=== PATIENT | female | born 1960 | race Caucasian/White ===

== ENCOUNTER 2018-03-28 00:05 | Outpatient (CLI) | payer MEDICAID, SELFPAY ==
[2018-03-28 10:58] LABS: TSH 0.11 uIU/mL (0.358-3.74)
== END 2018-03-28 00:25 ==
PROVIDERS: PCP Nurse Practitioner; Visit Provider Nurse Practitioner
DX: E03.9 Hypothyroidism, unspecified (principal)
CPT/HCPCS: 84443

== ENCOUNTER 2018-03-30 00:30 | Outpatient (CLI) | payer MEDICAID, SELFPAY ==
--- NOTE | 2018-03-30 16:32 | DI.MAMMO_ITS ---
SYMPTOM/DIAGNOSIS: SCREENING, Z12.31 MAMMOGRAMS: Mammograms were interpreted according to the usual protocol including computer analysis with CAD system, tomosynthesis and C view imaging. Comparison is made with prior examinations. Breast density, category B. No masses or microcalcifications are seen. There is nothing to suggest malignancy. IMPRESSION: Negative mammogram. Routine screening is recommended. Category 1B. MQSA ASSESSMENT OF FINDINGS: Negative. Category 1. Patient will receive a letter notifying them of these results. BI-RADS category B. There are scattered areas of fibroglandular density.
== END 2018-03-30 00:50 ==
PROVIDERS: PCP Nurse Practitioner; Visit Provider Nurse Practitioner
DX: Z12.31 Encounter for screening mammogram for malignant neoplasm of breast (principal)
CPT/HCPCS: 77063; 77067

== ENCOUNTER 2018-05-23 10:30 | Outpatient (CLI) | payer MEDICAID, SELFPAY ==
[2018-05-23 11:29] LABS: TSH 0.47 uIU/mL (0.358-3.74)
== END 2018-05-23 10:50 ==
PROVIDERS: PCP Nurse Practitioner; Visit Provider Nurse Practitioner
DX: E03.9 Hypothyroidism, unspecified (principal)
CPT/HCPCS: 36415; 84443

== ENCOUNTER 2018-07-23 09:11 | Emergency (ER) | payer OTHER, SELFPAY ==
[2018-07-23 09:15] VITALS: PULSE 66; RESP 18; TEMP 36.6; O2SAT 98
[2018-07-23 10:09] VITALS: BP 112/60; PULSE 52; RESP 18; TEMP 36.5; O2SAT 97
[2018-07-23] MEDS: Ibuprofen 600 MG TAB PO (10:15)
[2018-07-23] MEDS: Acetaminophen 325 MG TAB 650 MG PO (10:16)
--- NOTE | 2018-07-23 11:21 | W.ED.GENAD ---
Discharge Plan Disposition Patient Disposition: HOME Condition: Stable Discharge Details Chief Complaint: HeadInjury Clinical Impression: Head injury, acute, with loss of consciousness Primary Care Provider: Shelia Harrison ED Provider: Pepe Saavedra Home Meds and New Rx's Prescriptions: Continued meloxicam 15 MG tablet 15 mg PO DAILY RF: 0 levothyroxine [Levoxyl] 175 MCG tablet 175 mcg PO DAILY RF: 0 Discontinued benzonatate 200 MG capsule 200 mg PO Q8H PRN (Reason: Cough) Qty: 20 RF: 0 Discharge Instructions Instructions: Head Injury (ED), Staple Care (ED) Additional Instructions: Return to the emergency department for any new or significant worsening of symptoms such as severe headache, nausea vomiting, or any neurological symptoms or confusion. Otherwise you may continue to take [id number] pain medication as needed for headache or discomfort. Keep wound clean and dry and return 7 days for removal of your kasey. Watch for signs of infection of your cut and return immediately if this occurs. Referrals: Shelia Harrison [Primary Care Provider] - (As needed for reassessment) Discharge Data Discharge Date/Time-TO BE ENTERED AT DEPARTURE: 07/23/18 12:44 Medical Decision Making Patient presenting the emergency department for chief complaint of head injury. Patient states approximately 10-20 minutes prior to arrival she slipped and fell on the ice and her went out to assist her. Patient states feeling dazed afterwards but there is a questionable loss of consciousness versus no loss of consciousness. Physical exam is positive for a head laceration but otherwise no signs of skull fracture, no altered mental status, no vomiting. Using [place] head CT rule patient does not require CT imaging at this time but patient given acetaminophen and Motrin and observed in the emergency department. small 2cm head laceration repaired with 2 kasey. Pt observed in the emergency. Patient had no symptoms and statement of discomfort after acetaminophen and Motrin. Spouse was encouraged to watch patient and return for any concerns otherwise patient was discharged in stable and improving condition. After discussion of diagnosis and plan of care patient has no further needs, questions, or concerns and states clear understanding to return to the emergency department for any worsening symptoms. HPI General Mode of arrival: ambulatory. Date/Time Provider Initiated Documentation: 07/23/18 09:12. Limitations to Documentation: no limitations. Information obtained by: patient, family and RN notes reviewed. History of Present Illness 57 year old F presents to the emergency department with the chief complaint of Head injury, described as mild, with intensity rated at 5. Quality is described as aching, and is localized to the head. Patient reports no radiation. Patient started experiencing this minute(s) (10) and it has been constant. No relieving factors improve symptom(s), No exacerbating factors reported . Patient notes no other symptoms.. Patient did receive the following treatments prior to arrival, none Related Data Home Medications Medication Instructions Recorded Confirmed meloxicam 15 mg PO DAILY tab-cap 03/20/16 11/10/16 levothyroxine [Levoxyl] 175 mcg PO DAILY 11/04/16 11/10/16 Allergies Allergy/AdvReac Type Severity Reaction Status Date / Time No Known Allergies Allergy Unverified 09/16/16 10:20 General Stated Complaint: HeadInjury REBECA: 2 Review of Systems Constitutional Denies body ache(s), Denies chills, Denies fever(s) and Reports headache(s) Eyes Denies change in vision ENT Denies dizziness and Reports headache(s) Cardiovascular Denies chest pain and Denies syncope Gastrointestinal Reports nausea and Reports vomiting Neurologic Reports as per HPI, Denies dizziness, Denies syncope, Reports headache(s) and Denies sensory deficit PFSH Surgical History Cholecystectomy Colonoscopy - MAC (11/10/16) Dilation and curettage Hernia Repair, Incisional Ligation of fallopian tube Social History Smoking/Tobacco Use Status: Former Tobacco Use Exam Const General: cooperative, healthy appearing, no acute distress and well groomed Orientation: alert, awake and oriented x3 HENMT Head: no palpable skull fracture, no Clements's sign, no hematomas, laceration (2cm), no occipital foramen tenderness, no palpable skull fracture and no raccoon eyes Ears: hearing grossly normal bilaterally and TM's normal bilaterally Mouth: oral mucosae normal and moist mucous membranes Throat: posterior oropharynx normal Eyes Visual Meredith: normal visual meredith by confrontation Alignment and Position: alignment normal Periorbital: periorbital findings normal Eyelids: eyelids normal Sclera: sclerae normal Cornea: corneas normal Pupils: PERRL EOM: EOM intact bilaterally Neck Neck: normal visual inspection, full ROM, no lymphadenopathy and no meningeal signs Resp Effort & Inspection: normal respiratory effort and able to speak in complete sentences Auscultation: clear to auscultation bilaterally Cardio Rate: regular rate Rhythm: regular rhythm Heart Sounds: S1 normal and S2 normal Neuro General: alert, awake, oriented x3, gait normal, tone normal, moves all extremities, CN's II-XI intact bilaterally and not confused Cognition: normal cognition Speech: speech normal Motor: muscle tone normal throughout, strength 5/5 throughout, no pronator drift, no movement abnormalities noted and no fasciculations Sensory Exam: no sensory deficits noted Coordination: [id number] test normal, Romberg test normal, Does not sway with eyes open, rapid alternating movement UE normal and rapid alternating movement LE normal Course Vital Signs Temperature 36.6 C 07/23/18 09:15 Pulse 66 07/23/18 09:15 Respiratory Rate 18 07/23/18 09:15 Pulse Oximetry 98 07/23/18 09:15 Temperature 36.5 C 07/23/18 10:09 Temperature Source Temporal Artery Scan 07/23/18 10:09 Pulse 52 L 07/23/18 10:09 Respiratory Rate 18 07/23/18 10:09 Respiratory Effort 07/23/18 09:35 Respiratory Depth Normal 07/23/18 09:35 Respiratory Pattern Normal 07/23/18 09:35 Blood Pressure 112/60 07/23/18 10:09 Blood Pressure Position Sitting 07/23/18 09:15 Pulse Oximetry 97 07/23/18 10:09 Oxygen Delivery Method Room Air 07/23/18 10:09 Oxygen Flow Rate 0 07/23/18 10:09 Pain Level 3 07/23/18 10:09 Procedures Laceration Laceration 1: Site: scalp Side (If applicable): right Size (cm): 2 Description: linear Depth: simple, single layer Local Anesthetic: Lidocaine 1% and with Epi Amount of anesthesia used (mL): 4 Pre-repair: wound explored, irrigated extensively and deep structures intact Skin layer closed with: other (kasey) Number of sutures: 2
[2018-07-23 11:23] VITALS: BP 136/81; PULSE 61; RESP 16; TEMP 36.5; O2SAT 98
--- NOTE | 2018-07-23 11:24 | ED.GENADUL_ITS ---
Discharge Plan Disposition Patient Disposition: HOME Condition: Stable Discharge Details Chief Complaint: HeadInjury Clinical Impression: Head injury, acute, with loss of consciousness Primary Care Provider: Shelia Harrison ED Provider: Pepe Saavedra Home Meds and New Rx's Prescriptions: Continued meloxicam 15 MG tablet 15 mg PO DAILY RF: 0 levothyroxine [Levoxyl] 175 MCG tablet 175 mcg PO DAILY RF: 0 Discontinued benzonatate 200 MG capsule 200 mg PO Q8H PRN (Reason: Cough) Qty: 20 RF: 0 Discharge Instructions Instructions: Head Injury (ED), Staple Care (ED) Additional Instructions: Return to the emergency department for any new or significant worsening of symptoms such as severe headache, nausea vomiting, or any neurological symptoms or confusion. Otherwise you may continue to take [id number]-[id number] pain medication as needed for headache or discomfort. Keep wound clean and dry and return 7 days for removal of your kasey. Watch for signs of infection of your cut and return immediately if this occurs. Referrals: Shelia Harrison [Primary Care Provider] - (As needed for reassessment) Discharge Data Discharge Date/Time-TO BE ENTERED AT DEPARTURE: 07/23/18 12:44 Medical Decision Making Patient presenting the emergency department for chief complaint of head injury. Patient states approximately 10-20 minutes prior to arrival she slipped and fell on the ice and her went out to assist her. Patient states feeling dazed afterwards but there is a questionable loss of consciousness versus no loss of consciousness. Physical exam is positive for a head laceration but otherwise no signs of skull fracture, no altered mental status, no vomiting. Using [place] head CT rule patient does not require CT imaging at this time but patient given acetaminophen and Motrin and observed in the emergency department. small 2cm head laceration repaired with 2 kasey. Pt observed in the emergency. Patient had no symptoms and statement of discomfort after acetaminophen and Motrin. Spouse was encouraged to watch patient and return for any concerns otherwise patient was discharged in stable and improving condition. After discussion of diagnosis and plan of care patient has no further needs, questions, or concerns and states clear understanding to return to the emergency department for any worsening symptoms. HPI General Mode of arrival: ambulatory . Date/Time Provider Initiated Documentation: 07/23/18 09:12 . Limitations to Documentation: no limitations . Information obtained by: patient, family and RN notes reviewed . History of Present Illness 57 year old F presents to the emergency department with the chief complaint of Head injury, described as mild, with intensity rated at 5. Quality is described as aching, and is localized to the head. Patient reports no radiation. Patient started experiencing this minute(s) (10) and it has been constant. No relieving factors improve symptom(s), No exacerbating factors reported . Patient notes no other symptoms.. Patient did receive the following treatments prior to arrival, none Related Data Home Medications Medication Instructions Recorded Confirmed meloxicam 15 mg PO DAILY tab-cap 03/20/16 11/10/16 levothyroxine [Levoxyl] 175 mcg PO DAILY 11/04/16 11/10/16 Allergies Allergy/AdvReac Type Severity Reaction Status Date / Time No Known Allergies Allergy Unverified 09/16/16 10:20 General Stated Complaint: HeadInjury REBECA: 2 Review of Systems Constitutional Denies body ache(s), Denies chills, Denies fever(s) and Reports headache(s) Eyes Denies change in vision ENT Denies dizziness and Reports headache(s) Cardiovascular Denies chest pain and Denies syncope Gastrointestinal Reports nausea and Reports vomiting Neurologic Reports as per HPI, Denies dizziness, Denies syncope, Reports headache(s) and Denies sensory deficit PFSH Surgical History Cholecystectomy Colonoscopy - MAC (11/10/16) Dilation and curettage Hernia Repair, Incisional Ligation of fallopian tube Social History Smoking/Tobacco Use Status: Former Tobacco Use Exam Const General: cooperative, healthy appearing, no acute distress and well groomed Orientation: alert, awake and oriented x3 HENMT Head: no palpable skull fracture, no Clements's sign, no hematomas, laceration (2cm), no occipital foramen tenderness, no palpable skull fracture and no raccoon eyes Ears: hearing grossly normal bilaterally and TM's normal bilaterally Mouth: oral mucosae normal and moist mucous membranes Throat: posterior oropharynx normal Eyes Visual Meredith: normal visual meredith by confrontation Alignment and Position: alignment normal Periorbital: periorbital findings normal Eyelids: eyelids normal Sclera: sclerae normal Cornea: corneas normal Pupils: PERRL EOM: EOM intact bilaterally Neck Neck: normal visual inspection, full ROM, no lymphadenopathy and no meningeal signs Resp Effort & Inspection: normal respiratory effort and able to speak in complete sentences Auscultation: clear to auscultation bilaterally Cardio Rate: regular rate Rhythm: regular rhythm Heart Sounds: S1 normal and S2 normal Neuro General: alert, awake, oriented x3, gait normal, tone normal, moves all extremities, CN's II-XI intact bilaterally and not confused Cognition: normal cognition Speech: speech normal Motor: muscle tone normal throughout, strength 5/5 throughout, no pronator drift, no movement abnormalities noted and no fasciculations Sensory Exam: no sensory deficits noted Coordination: [id number] test normal, Romberg test normal, Does not sway with eyes open, rapid alternating movement UE normal and rapid alternating movement LE normal Course Vital Signs Temperature 36.6 C 07/23/18 09:15 Pulse 66 07/23/18 09:15 Respiratory Rate 18 07/23/18 09:15 Pulse Oximetry 98 07/23/18 09:15 Temperature 36.5 C 07/23/18 10:09 Temperature Source Temporal Artery Scan 07/23/18 10:09 Pulse 52 L 07/23/18 10:09 Respiratory Rate 18 07/23/18 10:09 Respiratory Effort 07/23/18 09:35 Respiratory Depth Normal 07/23/18 09:35 Respiratory Pattern Normal 07/23/18 09:35 Blood Pressure 112/60 07/23/18 10:09 Blood Pressure Position Sitting 07/23/18 09:15 Pulse Oximetry 97 07/23/18 10:09 Oxygen Delivery Method Room Air 07/23/18 10:09 Oxygen Flow Rate 0 07/23/18 10:09 Pain Level 3 07/23/18 10:09 Procedures Laceration Laceration 1: Site: scalp Side (If applicable): right Size (cm): 2 Description: linear Depth: simple, single layer Local Anesthetic: Lidocaine 1% and with Epi Amount of anesthesia used (mL): 4 Pre-repair: wound explored, irrigated extensively and deep structures intact Skin layer closed with: other (kasey) Number of sutures: 2
== END 2018-07-23 12:44 | disposition home or self-care (01) ==
PROVIDERS: Emergency Provider Nurse Practitioner Family; PCP Nurse Practitioner
DX: S06.0X9A Concussion with loss of consciousness of unspecified duration, initial encounter (principal); S01.81XA Laceration without foreign body of other part of head, initial encounter; W00.0XXA Fall on same level due to ice and snow, initial encounter
CPT/HCPCS: 90471

== ENCOUNTER 2018-07-30 11:46 | Emergency (ER) | payer OTHER, SELFPAY ==
[2018-07-30 12:26] VITALS: BP 135/90; PULSE 58; RESP 18; TEMP 36.7; O2SAT 98
--- NOTE | 2018-07-30 12:27 | W.ED.GENAD ---
Discharge Plan Disposition Patient Disposition: HOME Condition: Good Discharge Details Chief Complaint: SutureRem Clinical Impression: Encounter for staple removal Primary Care Provider: Shelia Harrison ED Provider: Pepe Saavedra Home Meds and New Rx's Prescriptions: No Action meloxicam 15 MG tablet 15 mg PO DAILY RF: 0 levothyroxine [Levoxyl] 175 MCG tablet 175 mcg PO DAILY RF: 0 Discharge Instructions Instructions: Staple Care (ED) Additional Instructions: Return to the emergency department for any signs of infection otherwise continue to keep wound clean and dry and return as needed for any further concerns Referrals: Shelia Harrison [Primary Care Provider] - (As needed for reassessment) Discharge Data Discharge Date/Time-TO BE ENTERED AT DEPARTURE: 07/30/18 12:34 Medical Decision Making Patient presenting the emergency department for staple removal. Patient had head injury 1 week ago and 2 kasey were placed by myself. [place] were removed today without incidence no signs of infection or complications noted. Patient states that she is continued to have minor headaches but overall symptoms are improving since her slip and fall on ice. Patient encouraged to watch for signs of infection and return immediately if these occur otherwise to return as needed for any other symptoms./concerns. After discussion of diagnosis and plan of care patient is no further needs, questions, or concerns and states clear understanding to return to the emergency department for any worsening symptoms. HPI General Mode of arrival: ambulatory. Date/Time Provider Initiated Documentation: 07/30/18 12:17. Limitations to Documentation: no limitations. Information obtained by: patient, RN notes reviewed and old records reviewed. History of Present Illness 57 year old F presents to the emergency department with the chief complaint of Staple removal, Quality is described as other (denies pain), and is localized to the head. Patient started experiencing this day(s) (7) Patient notes no other symptoms.. Related Data Home Medications Medication Instructions Recorded Confirmed meloxicam 15 mg PO DAILY tab-cap 03/20/16 11/10/16 levothyroxine [Levoxyl] 175 mcg PO DAILY 11/04/16 11/10/16 Allergies Allergy/AdvReac Type Severity Reaction Status Date / Time No Known Allergies Allergy Unverified 09/16/16 10:20 General Stated Complaint: SutureRem REBECA: 5 Review of Systems Constitutional Denies chills, Denies fever(s), Denies frequent falls and Denies headache(s) ENT Denies dizziness and Denies headache(s) Integumentary/Breasts Denies rash and Denies skin swelling Neurologic Denies confusion, Denies dizziness, Denies frequent falls and Denies headache(s) Psychiatric Denies confusion [facility] Surgical History Cholecystectomy Colonoscopy - MAC (11/10/16) Dilation and curettage Hernia Repair, Incisional Ligation of fallopian tube Social History Smoking/Tobacco Use Status: Former Tobacco Use Exam Const General: cooperative, comfortable and no acute distress Orientation: alert, awake and oriented x3 HENMT Head: laceration (Well-healing laceration to right posterior scalp) Skin Rashes: no rashes Neuro General: alert, awake, oriented x3, gait normal, tone normal and moves all extremities Course Respiratory Effort Non-Labored 07/30/18 12:25
[2018-07-30 12:29] VITALS: BP 135/90; PULSE 58; RESP 18; TEMP 36.7; O2SAT 98
--- NOTE | 2018-07-30 12:31 | ED.GENADUL_ITS ---
Discharge Plan Disposition Patient Disposition: HOME Condition: Good Discharge Details Chief Complaint: SutureRem Clinical Impression: Encounter for staple removal Primary Care Provider: Shelia Harrison ED Provider: Pepe Saavedra Home Meds and New Rx's Prescriptions: No Action meloxicam 15 MG tablet 15 mg PO DAILY RF: 0 levothyroxine [Levoxyl] 175 MCG tablet 175 mcg PO DAILY RF: 0 Discharge Instructions Instructions: Staple Care (ED) Additional Instructions: Return to the emergency department for any signs of infection otherwise continue to keep wound clean and dry and return as needed for any further concerns Referrals: Shelia Harrison [Primary Care Provider] - (As needed for reassessment) Discharge Data Discharge Date/Time-TO BE ENTERED AT DEPARTURE: 07/30/18 12:34 Medical Decision Making Patient presenting the emergency department for staple removal. Patient had head injury 1 week ago and 2 kasey were placed by myself. [place] were removed today without incidence no signs of infection or complications noted. Patient states that she is continued to have minor headaches but overall symptoms are improving since her slip and fall on ice. Patient encouraged to watch for signs of infection and return immediately if these occur otherwise to return as needed for any other symptoms./concerns. After discussion of diagnosis and plan of care patient is no further needs, questions, or concerns and states clear understanding to return to the emergency department for any worsening symptoms. HPI General Mode of arrival: ambulatory . Date/Time Provider Initiated Documentation: 07/30/18 12:17 . Limitations to Documentation: no limitations . Information obtained by: patient, RN notes reviewed and old records reviewed . History of Present Illness 57 year old F presents to the emergency department with the chief complaint of Staple removal, Quality is described as other (denies pain), and is localized to the head. Patient started experiencing this day(s) (7) Patient notes no other symptoms.. Related Data Home Medications Medication Instructions Recorded Confirmed meloxicam 15 mg PO DAILY tab-cap 03/20/16 11/10/16 levothyroxine [Levoxyl] 175 mcg PO DAILY 11/04/16 11/10/16 Allergies Allergy/AdvReac Type Severity Reaction Status Date / Time No Known Allergies Allergy Unverified 09/16/16 10:20 General Stated Complaint: SutureRem REBECA: 5 Review of Systems Constitutional Denies chills, Denies fever(s), Denies frequent falls and Denies headache(s) ENT Denies dizziness and Denies headache(s) Integumentary/Breasts Denies rash and Denies skin swelling Neurologic Denies confusion, Denies dizziness, Denies frequent falls and Denies headache(s) Psychiatric Denies confusion [facility] Surgical History Cholecystectomy Colonoscopy - MAC (11/10/16) Dilation and curettage Hernia Repair, Incisional Ligation of fallopian tube Social History Smoking/Tobacco Use Status: Former Tobacco Use Exam Const General: cooperative, comfortable and no acute distress Orientation: alert, awake and oriented x3 HENMT Head: laceration (Well-healing laceration to right posterior scalp) Skin Rashes: no rashes Neuro General: alert, awake, oriented x3, gait normal, tone normal and moves all extremities Course Respiratory Effort Non-Labored 07/30/18 12:25
== END 2018-07-30 12:34 | disposition home or self-care (01) ==
PROVIDERS: Emergency Provider Nurse Practitioner Family; PCP Nurse Practitioner
DX: S01.81XD Laceration without foreign body of other part of head, subsequent encounter (principal); W00.9XXD Unspecified fall due to ice and snow, subsequent encounter; Z48.02 Encounter for removal of sutures

== ENCOUNTER 2019-02-07 13:57 | Outpatient (CLI) | payer OTHER, SELFPAY ==
[2019-02-07 15:13] LABS: ALT 27 U/L (12-78); AST 17 U/L (15-37); Albumin 3.8 g/dL (3.4-5.0); Alkaline Phosphatase 83 U/L (46-116); Anion Gap 11.1 mmol/L (3-11); BUN 13 mg/dL (7-18); Bilirubin, Total 0.3 mg/dL (0.2-1.0); CO2 23.9 mmol/L (21.0-32.0); CREATININE 0.68 mg/dL (0.55-1.02); Calcium 8.9 mg/dL (8.5-10.1); Calculated LDL 77 mg/dL; Chloride 105 mmol/L (98-107); Cholesterol 152 mg/dL (50-200); Glucose 88 mg/dL (70-100); HDL Cholesterol 44 mg/dL (40-60); Potassium 4.1 mmol/L (3.5-5.1); Sodium 140 mmol/L (136-145); TSH (W/Ref FT4) 0.44 uIU/mL (0.36-3.74); Triglyceride 158 mg/dL (30-150)
[2019-02-08 10:11] LABS: Hepatitis C Ab w Rflx HCV PCR Negative (NEGAT)
[2019-02-08 10:33] LABS: HIV-1/2 Ag & Ab Screen Negative (NEGAT)
== END 2019-02-07 14:17 ==
PROVIDERS: PCP Nurse Practitioner Adult Health; Visit Provider Nurse Practitioner Adult Health
DX: E05.90 Thyrotoxicosis, unspecified without thyrotoxic crisis or storm (principal); E66.9 Obesity, unspecified; Z11.4 Encounter for screening for human immunodeficiency virus [HIV]; Z11.59 Encounter for screening for other viral diseases; Z51.81 Encounter for therapeutic drug level monitoring; Z13.220 Encounter for screening for lipoid disorders; E03.9 Hypothyroidism, unspecified; K57.30 Diverticulosis of large intestine without perforation or abscess without bleeding
CPT/HCPCS: 36415; 80053; 80061; 83721; 86803; 87389; 84443

== ENCOUNTER 2019-04-07 01:03 | Outpatient (CLI) | payer OTHER, SELFPAY ==
--- NOTE | 2019-04-07 13:25 | DI.MAMMO_ITS ---
EXAM: MAMMO SCREENING CLINICAL HISTORY: screening Z12.39. TECHNIQUE: Mammograms were interpreted according to the usual protocol including computer analysis w Travefy system, tomosynthesis and C-view imaging. FINDINGS: The breasts are of moderate density with fairly symmetrical distribution of fibroglandular tissue. No dominant mass or clumped microcalcification is identified in either breast. Current examination is c ompared with previous examinations including March 2018 and there has been no gross interval change in appearance in comparison with previous studies. IMPRESSION: No specific evidence of malignancy at this time. Routine screening examinations are suggested at year ly intervals due to the family history of breast carcinoma. Category 1. Breast density category B. BI-RADS Cat 1 - Negative. Breast Density - Category B - Scattered areas of fibroglandular density.
== END 2019-04-07 01:23 ==
PROVIDERS: PCP Nurse Practitioner Adult Health; Visit Provider Nurse Practitioner Adult Health
DX: Z12.31 Encounter for screening mammogram for malignant neoplasm of breast (principal); Z80.3 Family history of malignant neoplasm of breast
CPT/HCPCS: 77063; 77067

== ENCOUNTER 2019-07-28 18:20 | Outpatient (CLI) | payer OTHER, SELFPAY ==
[2019-07-28 19:18] LABS: HCT 39.4 % (36.0-46.0); HGB 13.2 g/dL (12.0-15.5); Mean Corp. HGB Concentration 33.5 g/dL (32.0-36.0); Mean Corpuscular Hemoglobin 30.5 pg (27.0-33.0); Mean Platelet Volume 11.3 fL (8.0-11.0); Platelet Count 186 x1000/uL (130-400); RBC 4.33 m/cumm (4.00-5.20); RBC Distribution Width 12.4 % (11.7-14.6); White Blood Cell Count 5.05 k/cumm (4.4-10.8)
[2019-07-28 19:36] LABS: C-Reactive Protein 0.81 mg/dL (0.0-0.3)
[2019-07-28 20:10] LABS: ESR 22 mm/hr (0-30)
== END 2019-07-28 18:40 ==
PROVIDERS: PCP Nurse Practitioner Adult Health; Visit Provider Nurse Practitioner Adult Health
DX: R53.83 Other fatigue (principal); M25.50 Pain in unspecified joint; M54.2 Cervicalgia
CPT/HCPCS: 36415; 85027; 85652; 86140; 86431

== ENCOUNTER 2020-01-03 01:08 | Outpatient (CLI) | payer OTHER, SELFPAY ==
--- NOTE | 2020-01-03 07:00 | DI.US_ITS ---
EXAM: US ABDOMEN CLINICAL HISTORY: Upper abdominal pain and bloating, R10.12, R19.8 TECHNIQUE: Ultrasound abdomen performed using standard protocol. COMPARISON: No exams were available for comparison FINDINGS: LIVER: Normal size and echogenicity. No focal liver lesions are seen. GALLBLADDER: Status post cholecystectomy. KIDNEYS: Kidneys are symmetric in size. No evidence of renal calculi. No evidence of hydronephrosis. No renal mass or cyst identified. BILIARY SYSTEM: No intrahepatic or extrahepatic biliary ductal dilation. Common bile duct measures 6 to 8 millimeters. PANCREAS: Normal where visualized. Tail obscured by bowel gas. SPLEEN: Not enlarged. ABDOMINAL AORTA AND IVC: Visualized portions normal caliber. ASCITES: None seen. IMPRESSION: Status post cholecystectomy. No acute abnormality. DATA REPOSITORY:
== END 2020-01-03 01:28 ==
PROVIDERS: PCP Nurse Practitioner Adult Health; Visit Provider Nurse Practitioner
DX: R10.12 Left upper quadrant pain (principal); Z90.49 Acquired absence of other specified parts of digestive tract
CPT/HCPCS: 76700

== ENCOUNTER 2020-03-03 12:59 | Outpatient (CLI) | payer OTHER, SELFPAY ==
[2020-03-03 16:29] LABS: ALT 26 U/L (14-59); AST 14 U/L (15-37); Alkaline Phosphatase 75 U/L (46-116); Anion Gap 8.4 mmol/L (3-11); BUN 13 mg/dL (7-18); Bilirubin, Total 0.8 mg/dL (0.2-1.0); CO2 23.6 mmol/L (21.0-32.0); CREATININE 0.77 mg/dL (0.55-1.02); Calcium 8.9 mg/dL (8.5-10.1); Calculated LDL 106 mg/dL (<100); Chloride 107 mmol/L (98-107); Cholesterol 179 mg/dL (<200); Glucose 94 mg/dL (74-106); HDL Cholesterol 49 mg/dL (40-60); Potassium 4.2 mmol/L (3.5-5.1); Sodium 139 mmol/L (136-145); TSH (W/Ref FT4) 3.76 uIU/mL (0.36-3.74); Total Protein 7.1 g/dL (6.4-8.2); Triglyceride 124 mg/dL (<150)
[2020-03-03 16:46] LABS: FREE T4 1.14 ng/dL (0.76-1.46)
== END 2020-03-03 13:19 ==
PROVIDERS: PCP Nurse Practitioner Adult Health; Visit Provider Nurse Practitioner Adult Health
DX: E03.9 Hypothyroidism, unspecified (principal); R53.83 Other fatigue; E66.9 Obesity, unspecified; Z13.1 Encounter for screening for diabetes mellitus; Z51.81 Encounter for therapeutic drug level monitoring; M25.50 Pain in unspecified joint
CPT/HCPCS: 80053; 80061; 84439; 84443

== ENCOUNTER 2020-04-24 01:40 | Outpatient (CLI) | payer OTHER, SELFPAY ==
--- NOTE | 2020-04-24 14:00 | NS.NUTBLAN_ITS ---
Kandy was referred for Medical Nutrition Therapy for obesity. 5'4 261 lbs, BMI 45. Kandy reports she weighed <200 lbs about 10 years ago. She reports no health concerns, recently had total knee replacement. Goal weight loss of 50 lbs in next 6 months. Estimated Needs for weight loss : [id number] kcal, 70-80 g protein Educated Kandy on how to follow lower carb meal plan with emphasis on nonstarchy vegetables, lean protein and complex carbs. Also encouraged her to eat at least 3 times daily. Provided meal plan and assessments. Encouraged Kandy to walk 45 min 4-5 times weekly for routine exercise. Kandy was engaged in education and voiced comprehension. Did not want to make follow up appt at this time. Plan: 1. follow lower carb meal plan, 2. exercise 1 hour 4-5 times weekly, 3. follow up monthly with copywriter.
== END 2020-04-24 02:00 ==
PROVIDERS: PCP Nurse Practitioner Adult Health; Visit Provider Dietitian, Registered
DX: E66.9 Obesity, unspecified (principal); Z71.3 Dietary counseling and surveillance
CPT/HCPCS: 97802

== ENCOUNTER 2020-05-25 02:34 | Outpatient (CLI) | payer OTHER, SELFPAY ==
--- NOTE | 2020-05-25 08:15 | DI.MAMMO_ITS ---
EXAM: MAMMO SCREENING CLINICAL HISTORY: screening, Z12.39, FAMILY H/O BREAST CA TECHNIQUE: Mammograms were interpreted according to the usual protocol including computer analysis w The [employer] CAD system, tomosynthesis and C-view imaging. COMPARISON: FINDINGS: The breasts are of moderate density with fairly symmetrical distribution of fibroglandular tissue. N o dominant mass or clumped microcalcification is identified in either breast. The current examinatio n is compared with previous examinations including March 2019 and there is question of increased in prominence of a focal area of asymmetric density projected centrally in the left breast on MLO view of the left breast. Additional mammographic views of this area are requested to include an MLO spot compression view of the left breast. No other significant change comparison with prior studies. IMPRESSION: Additional mammographic views of the left breast requested as described above. Breast ultrasound may be indicated as well depending on the results of the additional mammographic views. BI-RADS Category 0 - Assessment Incomplete: Need additional imaging evaluation Breast Density - Category B - Scattered areas of fibroglandular density
== END 2020-05-25 02:54 ==
PROVIDERS: PCP Nurse Practitioner Adult Health; Visit Provider Nurse Practitioner Adult Health
DX: Z12.31 Encounter for screening mammogram for malignant neoplasm of breast (principal); R92.8 Other abnormal and inconclusive findings on diagnostic imaging of breast; Z80.3 Family history of malignant neoplasm of breast
CPT/HCPCS: 77063; 77067

== ENCOUNTER 2020-05-30 00:42 | Outpatient (CLI) | payer OTHER, SELFPAY ==
--- NOTE | 2020-05-30 15:00 | DI.MAMMO_ITS ---
EXAM: MG MAMMO SCREEN CALL BACK UNI CLINICAL HISTORY: F/U MAMMO,? INCREASE IN PROMINENCE OF ASYMMETRIC DENSITY LT BREAST. TECHNIQUE: Indications spot compression MLO view left breast COMPARISON: Prior mammograms dating back to 2011, the most recent being 05/25/2020. FINDINGS: Additional spot-compression 3D MLO view renders this area less concerning. IMPRESSION: No radiographic evidence of malignancy in the left breast. Appropriate follow-up is repeat left breast mammogram in 6 months. BI-RADS Category 3 - 6 month - Probably Benign Finding: Recommend follow-up mammography in 6 months Breast Density - Category B - Scattered areas of fibroglandular density Breast density Category C or D implies that the patient has dense breast tissue. Dense breast tissue can make it harder to find cancer on a mammogram. Dense breast tissue is also associated with an incr eased risk of breast cancer. This information about the result of the mammogram report was provided to the patient to raise their awareness. Use this report when you speak with the patient about their risks for breast cancer, which includes their family history. At that time, you may recommend additional screening tests (Ultrasoun d or MRI) as these tests may add significant information. A negative radiographic report should not delay biopsy if a dominant or clinically suspicious mass is present. Up to ten percent of cancers are not identified on mammography. A negative report may reinforce clinical impression. Adenosis and dense breasts may obscure an underlying neoplasm. False positive reports average 6 to 10%. Patient will receive a letter notifying them of these results.
== END 2020-05-30 01:02 ==
PROVIDERS: PCP Nurse Practitioner Adult Health; Visit Provider Nurse Practitioner Adult Health
DX: R92.8 Other abnormal and inconclusive findings on diagnostic imaging of breast (principal)
CPT/HCPCS: 77063; 77067

== ENCOUNTER 2020-06-15 04:20 | Outpatient (CLI) | payer OTHER, SELFPAY ==
--- NOTE | 2020-06-15 08:00 | DI.RAD_ITS ---
EXAM: XR CERVICAL SPINE COMP 4-5V CLINICAL HISTORY: persistent neck pain despite PT analgeisa,M54.2. TECHNIQUE: 2D digital imaging was performed. COMPARISON: No exams were available for comparison FINDINGS: The odontoid is intact. The lateral masses are well aligned. There is normal alignment of the cervi shekhar spine. There is mild narrowing of the disc spaces at C5-6 and C6-C7. There are small endplate o steophytes from C4-5 through C6-C7. There are degenerative changes of the facets at multiple levels of the cervical spine. No significant neural foraminal stenosis is seen. No acute fractures or subl uxations. The bones are normally mineralized. Prevertebral soft tissues are unremarkable. IMPRESSION: Himp-ip-hcilcxzt degenerative changes in the cervical spine. DATA REPOSITORY: RADIATION DOSE DELIVERED:
== END 2020-06-15 04:40 ==
PROVIDERS: PCP Nurse Practitioner Adult Health; Visit Provider Nurse Practitioner Adult Health
DX: M47.812 Spondylosis without myelopathy or radiculopathy, cervical region (principal); M25.78 Osteophyte, vertebrae
CPT/HCPCS: 72050

== ENCOUNTER 2020-08-06 01:20 | Outpatient (CLI) | payer OTHER, SELFPAY ==
--- NOTE | 2020-08-06 08:30 | DI.US_ITS ---
EXAM: US PELVIS TRANSVAGINAL CLINICAL HISTORY: post-menopausal bleeding x4 days,N95.0. TECHNIQUE: Transabdominal and transvaginal pelvic ultrasound was performed using standard protocol. COMPARISON: No exams were available for comparison FINDINGS: KIDNEYS: Kidneys are symmetric in size. No evidence of hydronephrosis. No renal mass or cyst identif ied. UTERUS: Position: Anteverted. Size: 9.5 long by 5.0 AP by 7.9 transverse cm Endometrium: 1.1 cm. The endometrial stripe is thickened and heterogeneous in this postmenopausal pat ient. Cystic changes are noted. Internal blood flow is seen. Myometrium: There is a 1.6 x 1.4 x 1.1 cm hypoechoic mass in the anterior body of the uterus likely r eflecting a fibroid. Cervix: Unremarkable. OVARIES: The ovaries were not visualized transabdominally or transvaginally. No adnexal masses are s een. CUL-DE-SAC: Free fluid: None. Other: None. IMPRESSION: 1. No evidence of hydronephrosis. 2. Thickened heterogeneous endometrial stripe in this postmenopausal patient up to 1.1 cm. While thi s may represent hyperplasia, neoplasm cannot be excluded. Gynecologic consult is recommended. 3. Ovaries not visualized transabdominally or transvaginally. No adnexal masses are seen. DATA REPOSITORY:
== END 2020-08-06 01:21 | disposition home or self-care (01) ==
LOC: DI 01:20
PROVIDERS: PCP Nurse Practitioner Adult Health; Visit Provider Nurse Practitioner Adult Health
DX: N95.0 Postmenopausal bleeding (principal)
CPT/HCPCS: 76830; 76856

== ENCOUNTER 2020-08-10 16:47 | Outpatient (REF) | payer OTHER, SELFPAY ==
--- NOTE | 2020-08-10 15:50 | PAPFT_PTH ---
PATIENT: Kandy Durán LOC: [facility] U#:[id number] AGE/SX: 59/F ROOM: RE08/10/[address]: Ana Kruger DO : 1960 BED: DIS: 08/10/2020 SPEC #: [id number] RECD: 08/10/20 17:39 STATUS: NILTON REQ #: [id number] ELVIA: 08/10/20 15:[address]: Ana Kruger DEPT: [facility] Cytology RECD BY: Jamia Winn ENTERED: 08/10/20 17:40 SP TYPE: PAPFT OTHR DR: Rebecca Giles APRN Tissues: 1 - CX/ENDOCX FOR PAP SMEARS Procedures: PAP THIN PREP/UVM Screening HPV DNA PROBE Comments: [id number]
--- NOTE | 2020-08-10 15:50 | ENDOMET_PTH ---
PATIENT: Kandy Durán LOC: N U#:[id number] AGE/SX: 59/F ROOM: RE08/10/[address]: Ana Kruger DO : 1960 BED: DIS: 08/10/2020 SPEC #: [id number] RECD: 08/10/20 17:37 STATUS: [place]ILTON REQ #: [id number] ELVIA: 08/10/20 15:[address]: Ana Kruger DEPT: Surgical Specimen RECD BY: Jamia Winn ENTERED: 08/10/20 17:38 SP TYPE: Endomet OT DR: Rebecca Giles APRN Tissues: 1 - ENDOMETRIUM BX/CURRETTE 2 - ENDOCERVICAL BX/CURRETTE Procedures: GROSS AND MICRO LEVEL 4 Comments: [id number]
== END 2020-08-10 16:48 | disposition home or self-care (01) ==
LOC: LBN 16:47
PROVIDERS: PCP Nurse Practitioner Adult Health; Visit Provider Obstetrics & Gynecology
DX: N84.1 Polyp of cervix uteri (principal); N85.8 Other specified noninflammatory disorders of uterus; N95.0 Postmenopausal bleeding; Z12.4 Encounter for screening for malignant neoplasm of cervix; Z11.51 Encounter for screening for human papillomavirus (HPV)
CPT/HCPCS: 88142; 88305; 87624

== ENCOUNTER 2020-12-10 01:08 | Outpatient (CLI) | payer OTHER, SELFPAY ==
--- NOTE | 2020-12-10 14:28 | DI.MAMMO_ITS ---
Exam(s) MG MAMMO DIAGNOSTIC UNI EXAM: MG MAMMO DIAGNOSTIC UNI-LEFT CLINICAL HISTORY: DIAGNOSTIC, F/U ABNL MAMMO, 6 MONTH FOLLOW UP, R92.8. TECHNIQUE: Unilateral CC AND MLO AND SPOT mammographic images were obtained with 3D Tomosynthesistec hnique and utilizing computer aided detection (CAD). COMPARISON: Prior mammograms dating back to 2011, the most recent being MAY 2020. FINDINGS: The previously described asymmetric density in the left breast seen on the MLO view is unchanged and again less concerning on spot compression view. No malignant-appearing microcalcification groups in this region or elsewhere in the left breast. No new architectural distortion or skin thickening-trac tion. IMPRESSION: No radiographic evidence of malignancy in left breast. Appropriate follow-up is keep this patient on a yearly mammogram schedule plan in the next bilateral mammogram would be in April 2021, with earlier imaging if a self detected breast change is noted.. BI-RADS Category 2 - Benign Findings Breast Density - Category B - Scattered areas of fibroglandular density Breast density Category C or D implies that the patient has dense breast tissue. Dense breast tissue can make it harder to find cancer on a mammogram. Dense breast tissue is also associated with an incr eased risk of breast cancer. This information about the result of the mammogram report was provided to the patient to raise their awareness. Use this report when you speak with the patient about their risks for breast cancer, which includes their family history. At that time, you may recommend additional screening tests (Ultrasoun d or MRI) as these tests may add significant information. A negative radiographic report should not delay biopsy if a dominant or clinically suspicious mass is present. Up to ten percent of cancers are not identified on mammography. A negative report may reinforce clinical impression. Adenosis and dense breasts may obscure an underlying neoplasm. False positive reports average 6 to 10%. Patient will receive a letter notifying them of these results.
== END 2020-12-10 01:28 ==
PROVIDERS: PCP Nurse Practitioner Adult Health; Visit Provider Nurse Practitioner Adult Health
DX: Z12.31 Encounter for screening mammogram for malignant neoplasm of breast (principal); R92.8 Other abnormal and inconclusive findings on diagnostic imaging of breast; N64.59 Other signs and symptoms in breast
CPT/HCPCS: 77061; 77065; G0279

== ENCOUNTER 2021-02-21 10:20 | Outpatient (CLI) | payer OTHER, SELFPAY ==
[2021-02-21 12:05] LABS: Anion Gap 9.9 mmol/L (3-11); BUN 14 mg/dL (7-18); CO2 26.1 mmol/L (21.0-32.0); CREATININE 0.8 mg/dL (0.55-1.02); Calculated LDL 101 mg/dL (<100); Chloride 105 mmol/L (98-107); Cholesterol 169 mg/dL (<200); Glucose 99 mg/dL (74-106); HDL Cholesterol 47 mg/dL (40-60); Sodium 141 mmol/L (136-145); TSH (W/Ref FT4) 2.53 uIU/mL (0.36-3.74); Triglyceride 105 mg/dL (<150)
== END 2021-02-21 10:21 | disposition home or self-care (01) ==
LOC: LBO 10:42
PROVIDERS: PCP Nurse Practitioner Adult Health; Visit Provider Nurse Practitioner Adult Health
DX: E03.9 Hypothyroidism, unspecified (principal); E66.9 Obesity, unspecified
CPT/HCPCS: 36415; 80048; 80061; 84443

== ENCOUNTER 2021-03-18 11:18 | Outpatient (CLI) | payer OTHER, SELFPAY ==
--- NOTE | 2021-03-18 11:15 | RT.EKG_ITS ---
APPROVED REPORT Exam: Resting ECG Reason for Exam: chest pain Patient Location: O HR:59 bpm ECG Measurements Heart Rate 59 AXIS WA 151 P -41 QRSd 95 QRS 2 QT 405 T 4 QTc 400 Conclusion Sinus bradycardia...rate< 60 Normal Electrocardiogram
== END 2021-03-18 11:19 | disposition home or self-care (01) ==
LOC: DI.KIM 11:19
PROVIDERS: PCP Nurse Practitioner Adult Health; Visit Provider Nurse Practitioner Adult Health
DX: R07.9 Chest pain, unspecified (principal)
CPT/HCPCS: 93010

== ENCOUNTER 2021-03-20 02:11 | Outpatient (CLI) | payer OTHER, SELFPAY ==
[2021-03-20] MEDS: Omnipaque 350 MG/ML 50 ML BTL IJ (12:06)
[2021-03-20] MEDS: Breeza Beverage 473 ML BTL PO (12:07)
[2021-03-20] MEDS: Omnipaque 350 MG/ML 100 ML BTL IJ (13:36)
--- NOTE | 2021-03-20 13:45 | DI.CT_ITS ---
Exam(s) CT ABDOMEN PELVIS W EXAM: CT ABDOMEN PELVIS W CLINICAL HISTORY: r/o mass diverticulitits;REASSESS HERNIA,RUQ AND LLQ PAIN,UMBICAL AND. TECHNIQUE: Imaging Protocol: Axial computed tomography images with coronal and sagittal reformatted images were created and reviewed CONTRAST MATERIAL: Intravenous: Omnipaque 100cc Oral: Yes COMPARISON: CT ABD PELVIS WITH CONTRAST from 05/20/2016 FINDINGS: VISUALIZED LUNG BASES: No nodules nor pleural effusions evident. ABDOMEN: There is no ascites. Small hiatal hernia noted LIVER: There are no focal hepatic lesions evident . GALLBLADDER/BILIARY: The gallbladder is again noted be surgically absent. CBD diameter is slightly p rominent, unchanged, and commensurate with the post cholecystectomy status. There is no dilatation o f intrahepatic ducts. PANCREAS: No evidence of pancreatic mass nor dilatation of the pancreatic duct. SPLEEN: Spleen is not enlarged. No obvious intrasplenic lesions. Splenic and portal veins are paten t. ADRENALS: There are no significant adrenal masses. KIDNEYS:No cysts evident. No solid renal masses. No calculi nor hydronephrosis.. ABDOMINAL AORTA: Abdominal aorta is not enlarged. LYMPH NODES:There is no retroperitoneal nor paraaortic adenopathy. ABDOMINAL WALL: Small fat containing anterior abdominal wall umbilical hernia. No bowel loops therei n. Right inguinal hernia unchanged from 2016. No bowel loops therein. GI: There is no evidence of bowel obstruction, free air, nor abscess. PELVIS: GI: No evidence of appendicitis.There is extensive diverticulosis of the sigmoid and rectosigmoid wit h relative sparing of the colon above the mid descending colon-left:. There is no obvious acute dive rticulitis. No free air. No free fluid. No abscess. LYMPH NODES: There is no intrapelvic nor inguinal adenopathy. REPRODUCTIVE: Uterine fibroids again noted. No ovarian masses evident. URINARY BLADDER: No calculi nor obvious masses evident OSSEOUS: No significant osseous lesions. IMPRESSION: 1. Compared to the prior CT scan of 2016 there is again noted severe diverticulosis of the distal jovon cending left colon and involving the entire signal. Although there is no evidence of obvious acute d iverticulitis, please note that a subtle case of diverticulitis can be missed here, given the extent of involvement of the sigmoid. 2. No evidence of appendicitis. 3. Gallbladder is again noted be surgically absent. No significant dilatation of the biliary tree. 4. Right inguinal hernia is unchanged from 2016 and does not contain bowel loops therein. Uterine fibroids. No adnexal masses. RADIATION DOSE DELIVERED: 1,176.16mGy.cm Total DLP DATA REPOSITORY: All CT scans at this facility are submitted to the National Radiology Data Registry (NRDR) Dose Index Registry (DIR) with the [employer] (ACR). RADIATION OPTIMIZATION: All CT scans at this facility use at least one of these dose optimization te chniques: automated exposure control; mA and/or kV adjustment per patient size (includes targeted exa ms where dose is matched to clinical indication); or iterative reconstruction.
== END 2021-03-20 02:31 ==
PROVIDERS: PCP Nurse Practitioner Adult Health; Visit Provider Nurse Practitioner Adult Health
DX: K40.90 Unilateral inguinal hernia, without obstruction or gangrene, not specified as recurrent (principal); K42.9 Umbilical hernia without obstruction or gangrene; K57.30 Diverticulosis of large intestine without perforation or abscess without bleeding; R10.11 Right upper quadrant pain; R10.32 Left lower quadrant pain; R14.0 Abdominal distension (gaseous); R14.3 Flatulence; D25.9 Leiomyoma of uterus, unspecified
CPT/HCPCS: 74177; J3490; Q9967

== ENCOUNTER 2021-06-14 01:24 | Outpatient (CLI) | payer OTHER, SELFPAY ==
--- NOTE | 2021-06-14 08:00 | DI.CTLCSR_ITS ---
Exam(s) CT CHEST LUNG CANCER SCREEN EXAM: CT CHEST LUNG CANCER SCREEN CLINICAL HISTORY: Screening for lung cancer,FORMER SMOKER, Z87.891 TECHNIQUE: Imaging Protocol: Axial computed tomography images with coronal and sagittal reformatted images were created and reviewed COMPARISON: No exams were available for comparison FINDINGS: Tracheobronchial tree: Patent where visualized. Pulmonary parenchyma: No consolidation or dominant measurable mass. No architectural distortion. Lung Nodules: None. Mediastinum and Harper: No dominant adenopathy or fluid collection. The esophagus is unremarkable excep t for small hiatal hernia. Thyroid gland: Unremarkable. Lymph nodes: Unremarkable. Pleura: No effusion or pneumothorax. Heart: The heart is not dilated. No coronary artery calcifications are seen. No pericardial effusion . Aorta: Thoracic aorta non-dilated.Mild atherosclerosis. Upper abdomen: Status post cholecystectomy. Soft Tissues: Unremarkable. Bones: Within normal limits. IMPRESSION: No pulmonary nodules. Lung RADS Cat 1 - Negative: No nodules and definitely benign nodules Lung-RADS 1.0 CATEGORIES: Category 0 - Prior chest CT exam(s) being located for comparison. Category 1 - Annual screening in 12 months. No nodules or definitely benign nodules. Category 2 - Annual screening in 12 months. Benign appearance. Nodules with low likelihood of becomin g active cancer. Category 3 - 6-month follow-up. Probably benign. Short-term follow-up suggested. Nodules with low lik elihood of becoming active cancer. Category 4A - 3-month follow-up and CT/PET if >8 mm in size. Suspicious finding. Findings which requi re additional testing. Category 4B - Findings which require additional testing and tissue sampling. Suspicious finding. Modifier S- Potentially clinically significant finding. (Non lung cancer) RADIATION DOSE DELIVERED: 82.49mGy.cm Total DLP 2.21mGy CTDIvol 82.49mGy.cm Total DLP 2.21mGy CTDIvol DATA REPOSITORY: All CT scans at this facility are submitted to the National Radiology Data Registry (NRDR) Dose Index Registry (DIR) with the [employer] (ACR). RADIATION OPTIMIZATION: All CT scans at this facility use at least one of these dose optimization te chniques: automated exposure control; mA and/or kV adjustment per patient size (includes targeted exa ms where dose is matched to clinical indication); or iterative reconstruction.
--- NOTE | 2021-06-14 14:15 | DI.MAMMO_ITS ---
Exam(s) MAMMO SCREENING EXAM: MAMMO SCREENING CLINICAL HISTORY: screening,FAMILY H/O BREAST CA,Z80.3,Z12.39 TECHNIQUE: Bilateral full field digital CC and MLO mammographic images were obtained with 3D tomosyn thesis and utilizing computer aided detection (CAD). COMPARISON: Available for comparison. FINDINGS: Masses/Architectural Distortion: None seen. Microcalcifications: No suspicious pleomorphic-type are seen. Skin Thickening/Nipple Retraction: None. IMPRESSION: 1. No significant interval change with no specific features of malignancy noted. 2. Unless there is more urgent need, screening mammography is recommended, as per [employer] guidelines. BI-RADS Category 1 - Negative Breast Density - Category B - Scattered areas of fibroglandular density Breast density category C or D implies that the patient has dense breast tissue. Dense breast tissue is very common and is not abnormal but dense breast tissue can make it harder to find cancer on a ma mmogram. Also, dense breast tissue may increase their breast cancer risk. This information about the result of the mammogram report was provided to the patient to raise their awareness. Use this report when you speak with the patient about their risks for breast cancer, which includes their family hist ory. At that time, you may recommend for more screening tests (Ultrasound or MRI) as they might be us eful based on their risk. A negative radiographic report should not delay biopsy if a dominant or clinically suspicious mass is present. Up to ten percent of cancers are not identified on mammography. A negative report may reinforce clinical impression. Adenosis and dense breasts may obscure an underlying neoplasm. False positive reports average 6 to 10%. Patient will receive a letter notifying them of these results.
== END 2021-06-14 01:44 ==
PROVIDERS: PCP Nurse Practitioner Adult Health; Visit Provider Nurse Practitioner Adult Health
DX: Z12.31 Encounter for screening mammogram for malignant neoplasm of breast (principal); Z80.3 Family history of malignant neoplasm of breast; Z87.891 Personal history of nicotine dependence; Z12.2 Encounter for screening for malignant neoplasm of respiratory organs
CPT/HCPCS: 71271; 77063; 77067

== ENCOUNTER 2022-01-28 06:27 | Day surgery (SDC) | payer OTHER, SELFPAY ==
[2022-01-28 06:25] VITALS: BP 109/74; PULSE 66; RESP 16; TEMP 36; O2SAT 96
[2022-01-28] MEDS: Lactated Ringers 1,000 ML 80 ML IV (06:57)
--- NOTE | 2022-01-28 07:00 | ANES.PREOP_ITS ---
General Info Date of Service Date Performed: 01/28/22 Height: 5 ft 4 in Weight: 121.8 kg Body Mass Index (BMI): 46.0 Surgical Procedure: Operation Date: 01/28/22 07:40 Proposed Procedure Side Surgeon p Wrist ECTR Right Tez Flower MD Meds Allergies and Home Medications Allergies Allergy/AdvReac Type Severity Reaction Status Date / Time benzonatate AdvReac Increased Verified 01/27/22 12:15 Cough gabapentin AdvReac Headaches Verified 01/27/22 12:15 Home Medication Medication Instructions Recorded compression panty, 1x-2x #3 ea 03/25/19 levothyroxine 175 mcg tablet 175 mcg PO DAILY thyroid #90 tabs 02/27/21 (Levoxyl) simethicone 80 mg chewable tablet 80 mg PO TID-QID PRN abdominal 03/18/21 (Gas Relief 80 (simethicone)) distention #40 tabs diclofenac sodium 1 % topical gel 4 g topical QID PRN ankle & foot 09/23/21 pain #100 grams ibuprofen 800 mg tablet 400 - 800 mg PO BID PRN pain #40 11/27/21 tabs meloxicam 15 mg tablet 7.5 - 15 mg PO DAILY PRN pain #90 01/22/22 tab-caps Current Visit Medications: Current Medications Generic Name Dose Route Start Last Admin Trade Name Freq PRN Reason Stop Dose Admin Ringer's Solution 1,000 mls @ 80 mls/hr 01/28/22 06:00 01/28/22 06:57 IV 02/26/22 23:59 80 mls/hr INFUSION BRYAN Administration Cefazolin Sodium 3,000 mg/ 100 mls @ 200 mls/hr 01/28/22 06:00 Sodium Chloride IVPB 01/28/22 16:00 PREOP BRYAN IV Miscellaneous Supplies 1 each 01/28/22 06:00 Iv Access IV 02/26/22 23:59 DIRECTED BRYAN Sodium Chloride 0 ml 01/28/22 06:00 Normal Saline Flush 10 Ml Syr IV 02/26/22 23:59 PRN PRN Sodium Chloride 0 ml 01/28/22 06:00 Normal Saline 10 Ml Vial IJ 02/26/22 23:59 DIRECTED PRN Sterile Water 0 ml 01/28/22 06:00 Water,Injection,Sterile 10 Ml Vial IJ 02/26/22 23:59 DIRECTED PRN PFS Active Problems Active Problems: Problem Status Onset Code Diverticulosis large intestine w/o perforation or abscess w/o bleeding K57.30 Chronic pain of both feet M79.671, M79.672, G89.29 History of tobacco use Z87.891 Obesity E66.9 Hypothyroid E03.9 Degenerative spondylolisthesis M43.10 Varicose veins of both legs with edema I83.893 Right carpal tunnel syndrome G56.01 Family history of breast cancer in sister Z80.3 Neck pain M54.2 Right inguinal hernia K40.90 Umbilical hernia K42.9 Onychomycosis B35.1 Internal hemorrhoids K64.8 Diastasis recti M62.08 Medical History Medical History Category 3 mammography result with short follow-up interval suggested for probably benign finding +Fam hx in Sister as well, age 59yo. [facility] [place] 2[place] opinion reviewed & Cat 1; pt to still have 6m F/U L breast f/u 11/2020 Decreased libido Depression Endocervical polyp Benign (women's wellness) Endometrial thickening on ultrasound Endometrial BX NEG 07/2020 History of heavy alcohol consumption Neuropathy Overactive bladder Primary osteoarthritis of right knee s/p R TKR Synovial cyst of popliteal space [Gilbert], right knee Surgical History Surgical History Cholecystectomy Colonoscopy - [facility] (11/10/16) Hernia Repair, Incisional RUQ abd hernia with subsequent repair History of carpal tunnel release left History of dilation and curettage History of right knee surgery TKR Dr. Kenyon, [facility] [place] Ligation of fallopian tube Tobacco Smoking/Tobacco Use Status: Former Tobacco Use Passive smoking exposure: Yes Alcohol Alcohol Intake: current Alcohol intake frequency: a few times a week Alcohol type: wine Substance Use Substance use: Never Prental History History 1 Para 0 Hx # Term Pregnancies Multiple births Hx # Pregnancies Ectopic pregnancies AB induced 1 Hx Number of Living Children AB spontaneous Vital Signs and Lab Results Vital Signs Most Recent Vital Signs in EMR: Most Recent Vital Signs Temp Pulse Resp BP Pulse Ox 36 C L 66 16 109/74 96 01/28/22 06:25 01/28/22 06:25 01/28/22 06:25 01/28/22 06:25 01/28/22 06:25 Lab Results Blood Type / Crossmatch: No Data to Display Complete Blood Count: No Data to Display Complete Metabolic Panel: No Data to Display Liver Function Panel: No Data to Display Coagulation Panel: No Data to Display Cardiac Panel: No Data to Display Arterial Blood Gas: No Data to Display Venous Blood Gas: No Data to Display Pancreas Panel: No Data to Display Thyroid Panel: No Data to Display Infectious Disease: No Data to Display Blood Cultures: No Data to Display Toxicology Panel: No Data to Display Imaging and Studies Imaging and Studies Study information below may be from another EMR and interpreted by another provider. Please see original notes in EMR for more complete details. EKG Summary: DATE/TIME OF SERVICE: 03/18/21 1128 : 2PERFORMING LOCATION: [facility] APPROVED REPORT Exam: Resting ECG Reason for Exam: chest pain Patient Location: O HR:59 bpm ECG Measurements Heart Rate 59 AXIS PA 151 P -41 QRSd 95 QRS 2 QT 405 T4 QTc 400 Conclusion Sinus bradycardia...rate< 60 Anesthesia Assessment and Plan Anesthesia History Personal History: No History of Anesthesia Complications Family History: No Family History of Anesthesia Complications Exercise Tolerance Exercise Tolerance: Metabolic Equivalents>4 Pertinent Negatives Pertinent Negatives: No Symptoms of GERD, No Major Cardiovascular Symptoms or Complaints and No Major Pulmonary Symptoms or Complaints Cardiac & Pulmonary Exam Cardiac Exam: Normal S1/S2 Heart Sounds Pulmonary Exam: Clear Bilateral Breath Sounds Implantable Cardiac Device Does patient have a Pacemaker or an ICD?: No Airway Exam Known Difficult Airway: No Mallampati Class: 1 Mouth Opening: Normal (> 3cm) Thyromental Distance: Greater than 3 cm Neck Range of Motion: Full ROM Neck Circumference: Normal Teeth Condition: Normal Dentition ASA Classification ASA Score: ASA 3 Emergency Case?: No NPO Status NPO Status: NPO Clears >2 hours, Solids >8 hours Anesthesia Plan Resuscitation Status: Full Code Anesthesia Technique: General Anesthesia Airway Planned: Natural Airway Monitors Used: Standard Monitors
[2022-01-28 07:04] VITALS: BMI 46.0
--- NOTE | 2022-01-28 07:05 | HPE_ITS ---
Assessment and Plan Assessment and plan (1) Right carpal tunnel syndrome: Status: Acute Assessment and plan: Kandy is a 61-year-old female who has carpal tunnel syndrome of the right side. She is limited on a daily basis by the symptoms. Please see the previous office note for complete detailed history. She is here today for carpal tunnel release. I discussed the technical details of carpal tunnel release and that I perform an endoscopic release, but would make a larger, open, incision if necessary for visualization. I discussed the risks of the procedure to include, but not limited to, bleeding, infection, palmar pain, stiffness, damage to nerves, damage to vessels, damage to tendons, weakness, recurrence, and incomplete release. Given these risks, Kandy desires to proceed. History of Present Illness History of Present Illness Chief Complaint: Right carpal tunnel syndrome Narrative: Kandy is a 61-year-old female who has had persistent numbness and tingling about the right hand along with some associated pain. She previously had nerve Studies Which Demonstrated Carpal Tunnel Syndrome. Her Clinical Examination from the Office Was Clear for Carpal Tunnel Syndrome. Please See That Previous Office Note for Complete Detailed History and Clinical Examination. She Is Here Today for Carpal Tunnel Release. She Denies Any Significant Medical Changes. She Denies COVID-19 Infection. Review of Systems All systems reviewed & are unremarkable except as noted in HPI and below PFSH All Active Problems Diverticulosis large intestine w/o perforation or abscess w/o bleeding (Chronic) CT 2015; Colonoscopy 2017: lacy diverticulosis Chronic pain of both feet (Chronic) RX meloxicam (daily) Dr. Alcala History of tobacco use (Chronic) 15 years and quit in 2016 Obesity (Chronic) Hypothyroid (Chronic) Degenerative spondylolisthesis (Chronic) Lumbar spine Radicular RLE 03/2017 x-ray [facility] Varicose veins of both legs with edema (Chronic) Trialed thigh-high compression stockings Referred to [facility] for options 07/11/2019 Right carpal tunnel syndrome (Acute) Family history of breast cancer in sister (Acute) Neck pain (Acute) C-spine x-ray 06/13/2020 Right inguinal hernia (Chronic) Seen on CT 2016 Umbilical hernia (Chronic) Seen on CT 2016 Onychomycosis (Acute) Internal hemorrhoids (Acute) Diastasis recti (Acute) Medical History Category 3 mammography result with short follow-up interval suggested for probably benign finding +Fam hx in Sister as well, age 59yo. [facility] 2nd opinion reviewed & Cat 1; pt to still have 6m F/U L breast f/u 11/2020 Decreased libido Depression Endocervical polyp Benign ([facility]) Endometrial thickening on ultrasound Endometrial BX NEG 07/2020 History of heavy alcohol consumption Neuropathy Overactive bladder Primary osteoarthritis of right knee s/p R TKR Synovial cyst of popliteal space [Gilbert], right knee Surgical History Cholecystectomy Colonoscopy - [facility] (11/10/16) Hernia Repair, Incisional RUQ abd hernia with subsequent repair History of carpal tunnel release left History of dilation and curettage History of right knee surgery TKR Dr. Kenyon, [facility] Ligation of fallopian tube Family History Sister Breast cancer post-menopausal (alive) Brother Diabetes Nephew Diabetes Mother Dementia Father Tongue cancer Social History Smoking/Tobacco Use Status: Former Tobacco Use tobacco type: cigarettes Quit Date: 06/29/05 Pack-years: 30 Tobacco: How many years used: 30 Smoking risk assessment performed?: Yes Alcohol Intake: current Alcohol Intake frequency: a few times a week Alcohol type: wine Drug use: Never Adopted: No Caregiver/Support person: No Household members: spouse and significant other Housing: house Number of Children: 0 Communication Needs: Corrective Lenses Education Level: high school Do you need help understanding health information?: Rarely 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[employer], [employer] Pets and animals: Yes (2 cats) Pets and animals: cat(s) Sexually active: Yes Do you think of yourself as: straight/heterosexual Current gender identity: female What is your relationship status?: How often do you talk on the phone with friends or family?: twice per week How often do you get together with friends or relatives?: twice per week How often do you attend congregation or temple services?: 1-3 times per year Do you belong to any clubs or organized social groups?: no Panel score (0-1 are the most socially isolated patients): 2 What type of physical activity do you participate in: walking Duration: > 90 minutes/day Frequency: 5-6 times per week Kylie/Presybeterian: Yarsanism Special kylie needs: Yes Seatbelt use: always Helmet use: Yes Drive intox or ride w/intox 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 Working smoke detector in home: Yes Fire extinguisher in home: Yes Carbon monox detector in home: Yes Do you feel safe at home: Yes Do you feel safe in your relationship?: Yes History History 1 Para 0 Hx # Term Pregnancies Multiple births Hx # Pregnancies Ectopic pregnancies AB induced 1 Hx Number of Living Children AB spontaneous Meds Allergies and Home Medications Allergies Allergy/AdvReac Type Severity Reaction Status Date / Time benzonatate AdvReac Increased Verified 01/27/22 12:15 Cough gabapentin AdvReac Headaches Verified 01/27/22 12:15 Home Medications Medication Instructions Recorded Confirmed Type compression panty, 1x-2x #3 ea 03/25/19 01/27/22 Rx Engerix-B (PF) 20 mcg/mL 1 ml IM ONCE #1 mL 09/17/20 Clinic intramuscular suspension (hepatitis B virus vacc.rec(PF)) levothyroxine 175 mcg tablet 175 mcg PO DAILY thyroid #90 tabs 02/27/21 01/28/22 Rx (Levoxyl) simethicone 80 mg chewable tablet 80 mg PO TID-QID PRN abdominal 03/18/21 01/27/22 Rx (Gas Relief 80 (simethicone)) distention #40 tabs diclofenac sodium 1 % topical gel 4 g topical QID PRN ankle & foot 09/23/21 01/27/22 Rx pain #100 grams ibuprofen 800 mg tablet 400 - 800 mg PO BID PRN pain #40 11/27/21 01/27/22 Rx tabs meloxicam 15 mg tablet 7.5 - 15 mg PO DAILY PRN pain #90 01/22/22 01/28/22 Rx tab-caps Exam Const General: cooperative, healthy appearing, comfortable and no acute distress Resp Effort & Inspection: normal respiratory effort Auscultation: clear to auscultation bilaterally Cardio Rate: regular rate Rhythm: regular rhythm Results Last Vital Signs Temp 36 C L 01/28/22 06:25 Pulse 66 01/28/22 06:25 Resp 16 01/28/22 06:25 BP 109/74 01/28/22 06:25 Pulse Ox 96 01/28/22 06:25
--- NOTE | 2022-01-28 07:08 | PDOC.DSDIS_ITS ---
Discharge Plan Disposition Patient Disposition: HOME Condition: Good Discharge Details Reason For Visit: Right carpal tunnel syndrome Attending Provider: Tez Flower Primary Care Provider: Rebecca Giles Home Meds and New Rx's Prescriptions: New hydrocodone-acetaminophen 5-325 mg tablet 1 tab PO Q6H PRN (Reason: pain) Qty: 4 0RF acetaminophen 500 mg tablet 500 mg PO Q6H PRN PRN (Reason: pain) Qty: 40 3RF Continued Engerix-B (PF) 20 mcg/mL suspension 1 ml IM ONCE Qty: 1 0RF simethicone [Gas Relief 80 (simethicone)] 80 mg tablet,chewable 80 mg PO TID-QID PRN (Reason: abdominal distention) Qty: 40 0RF Rx Instructions: Med trial for abd bloating and excessive gas (DME) compression panty, 1x-2x Misc See Rx Instructions .ROUTE .MEDSUPPLY Qty: 3 0RF Rx Instructions: As directed 20-30mmHg panty hose; size per measurements levothyroxine [Levoxyl] 175 mcg tablet 175 mcg PO DAILY Qty: 90 3RF diclofenac sodium 1 % gel 4 g topical QID PRN (Reason: ankle & foot pain) Qty: 100 0RF Rx Instructions: apply to single knee, ankle, foot; for foot includes sole/toes/top of foot; wash hands following use meloxicam 15 mg tablet 7.5 - 15 mg PO DAILY PRN (Reason: pain) Qty: 90 0RF Rx Instructions: Use lowest effective dose Discontinued ibuprofen 800 mg tablet 400 - 800 mg PO BID PRN (Reason: pain) Qty: 40 1RF Discharge Instructions Stand Alone Forms: Ching Rosenberg Tunnel Release Referrals: Tez Flower MD [ [facility] STAFF PHYSICIAN] - Activity:: Elevate Remove Dressings/Wound Care:: 48 hours Shower/Bathe:: 48 hours Diet:: As Tolerated Discharge Orders Discharge Orders: Discharge Order (Routine); Ordered 01/28/22 Ordered By: Tez Flower DS: Diagnosis Discharge Diagnosis (1) Right carpal tunnel syndrome: Status: Acute
[2022-01-28] MEDS: ceFAZolin 3,000 MG in Normal Saline 100 ML 200 MG IVPB (07:22)
[2022-01-28] MEDS: Lidocaine 1% Multi-Dose W/EPI 1/100,000 50 ML VIAL (07:34)
[2022-01-28 07:43] VITALS: BP 94/62; PULSE 72; RESP 16; TEMP 36.3; O2SAT 94
[2022-01-28 08:18] VITALS: BP 100/69; PULSE 55; RESP 18; TEMP 36.4; O2SAT 94
--- NOTE | 2022-01-28 08:41 | W.ANESPOSTOP ---
Postoperative Evaluation Date, Time and Location Date Performed: 01/28/22 Time Performed: 08:41 Patient Location: Day Surgery Unit Vital Signs Most Recent Imported Vital Signs: Most Recent Vital Signs Temp Pulse Resp BP Pulse Ox 36.4 C L 55 L 18 100/69 94 01/28/22 08:18 01/28/22 08:18 01/28/22 08:18 01/28/22 08:18 01/28/22 08:18 Pain Score Most Recent Pain Score: Most Recent Pain Score Pain Level 0 01/28/22 08:18 Assessment Mental Status: Awake (Alert & Oriented to Patient Baseline) Airway and Respiratory Function: Patent airway with normal (patient baseline) respiratory exam Cardiovascular Function: Hemodynamically Stable Hydration Status: Adequately Hydrated Nausea & Vomiting: No Nausea or Vomiting Pain: Pt. Denies Any Pain Peripheral Nerve Block: Patient did not receive a nerve block
--- NOTE | 2022-01-28 10:20 | ROE_ITS ---
Date of service: 01/28/22 Time of Service: 07:40 Operative Note Operative Note DATE OF PROCEDURE: 01/28/22 PRE-OP DIAGNOSIS: Right Carpal Tunnel Syndrome POST-OP DIAGNOSIS: same PROCEDURE: Right Endoscopic Carpal Tunnel Release SURGEON: Tez Flower ANESTHESIA TYPE: General:No Airway Refer to Anesthesia Record ESTIMATED BLOOD LOSS: 0 PATHOLOGY: none sent TOURNIQUET TIME: 4 COMPLICATIONS: None Patient was transported to: same day Patient's condition: stable Indications: I have seen Kandy in clinic for symptoms of carpal tunnel syndrome. The numbness, tingling, and pain limited function. Clinical exam findings with nerve conduction tests confirmed the diagnosis of carpal tunnel syndrome. Nonoperative measures such as bracing, time, activity modifications had been tried but disability and pain persisted. I discussed carpal tunnel release with the patient. I reviewed the risks of the procedure to include, but not limited to, bleeding, infection, pain, stiffness, incomplete release, damage to nerves or vessels, persistent numbness, recurrence. Despite these risks, the patient elected to proceed. Findings: There was tightened carpal tunnel. This was dilated and released successfully with the endoscopic with increased space within the tunnel. The antebrachial fascia was released proximally freeing the median nerve at the wrist. Procedure Description: Kandy was greeted in the preoperative holding area where the correct side was identified and marked. The consent was reviewed with the patient and signed. The history and physical was updated. All questions were answered. She was taken back to the operating room. The patient was placed into the supine position on the operating room table with the right arm on an arm board. A nonsterile tourniquet was placed high onto the arm. All bony prominences were well padded. Prophylactic antibiotics in the form of Cefazolin were administered. The right arm was then prepped with Chloraprep and draped in a standard fashion with stockinette and extremity drape. A timeout to confirm correct identity, side and site, procedure, allergies, anesthesia, and medical concerns was performed. The surgical site was marked in the volar wrist creases in line with the radial border of the fourth ray. This area was anesthetized with approximately 6cc of 1% Lidocaine. The limb was then exsanguinated with an Esmarch. The skin was incised with a 15 blade, approximately 1cm. The skin only was cut and the deeper tissue was dissected bluntly with a tenotomy scissor, avoiding passing nerve and venous structures. The fascia was penetrated and opened bluntly. A two-prong skin hook was placed under this proximal fascial edge. A series of hamate finders were used to identify and dilate the carpal tunnel. Synovial elevator was used to free synovial attachments to the underside of the transverse carpal ligament. My thumb was kept in the palm to cristina the distal extent of the carpal tunnel and correctly position the hand. The Microaire endoscope was inserted without difficulty and without resistance. Excellent visualization showed horizontally running fibers of the transverse carpal ligament (TCL). The distal extent of the TCL was visualized and the end of the scope palpated with the thumb. The blade was elevated and withdrawn from distal to proximal. The TCL was split into two flaps. The endoscope was reinserted to confirm complete release and any remnant ligament was incised. The scope was withdrawn and the proximal aspect of the carpal tunnel was grossly inspected and appeared release with the median nerve visible. The antebrachial fascia at the level of the wrist was then freed from the overlying skin and then the underlying median nerve with blunt dissection. This was transected longitudinally for about 3cm proximal to the wrist incision. The wound was then irrigated with easy flow of irrigant distally and proximally. The incision was closed with a single 4-0 Nylon suture. The wound was dressed w ith Xeroform, Gauze, Kerlix and Dionte. The tourniquet was deflated with the initial dressing and held with some pressure. Blood flow returned easily to all digits with capillary refill less than 2 seconds. The patient tolerated the procedure well and was returned to the Same Day Surgery area in a stable condition suffering no known complication.
== END 2022-01-28 08:40 | disposition home or self-care (01) ==
PROVIDERS: PCP Nurse Practitioner Adult Health; Visit Provider Student in an Organized Health Care Education/Training Program
PROC: 01N54ZZ Release Median Nerve, Percutaneous Endoscopic Approach (ICD-10-PCS; CPT 29848; principal; 2022-01-28 07:30)
DX: G56.01 Carpal tunnel syndrome, right upper limb (principal); E03.9 Hypothyroidism, unspecified; G62.9 Polyneuropathy, unspecified; I83.893 Varicose veins of bilateral lower extremities with other complications; E66.9 Obesity, unspecified; Z68.42 Body mass index [BMI] 45.0-49.9, adult
CPT/HCPCS: 29848; J0690; J1885; J2250; J2405

== ENCOUNTER 2022-02-14 15:38 | Outpatient (REF) | payer OTHER, SELFPAY ==
[2022-02-14 15:46] LABS: Source Nasal/Nares
[2022-02-14 16:29] LABS: COVID-19 PCR Negative (Negative)
== END 2022-02-14 15:39 | disposition home or self-care (01) ==
LOC: LBN 15:38
PROVIDERS: PCP Nurse Practitioner Adult Health; Visit Provider Family Medicine
DX: Z20.822 Contact with and (suspected) exposure to COVID-19 (principal)
CPT/HCPCS: 87635

== ENCOUNTER 2022-04-23 17:53 | Outpatient (REF) | payer OTHER, SELFPAY ==
[2022-04-23 19:01] LABS: HCT 36.9 % (36.0-46.0); HGB 12.3 g/dL (11.2-15.7); MCH 30.3 pg (27.0-33.0); MCHC 33.3 % (32.0-36.0); MCV 91 fL (80-95); MPV 11.9 fL (8.0-11.0); Platelet Count 178 10^3/uL (130-400); RBC 4.06 10^6/uL (3.93-5.22); RDW 12.2 % (11.7-14.6); RDW-SD 40.7 fL
[2022-04-23 19:39] LABS: Ferritin 141 ng/mL (8-252)
== END 2022-04-23 17:54 | disposition home or self-care (01) ==
LOC: LBN 17:53
PROVIDERS: PCP Nurse Practitioner Adult Health; Visit Provider Nurse Practitioner Adult Health
DX: D64.9 Anemia, unspecified (principal); K62.5 Hemorrhage of anus and rectum; K92.1 Melena
CPT/HCPCS: 85027; 82728

== ENCOUNTER → 2022-05-19 15:25 | Outpatient (CLI) | payer OTHER, SELFPAY ==
--- NOTE | 2022-05-19 14:00 | DI.RAD_ITS ---
Exam(s) XR FOOT RT COMPLETE EXAM: XR FOOT RT COMPLETE CLINICAL HISTORY: foot pain,m79.671,m79.672. TECHNIQUE: 2D digital imaging was performed. Three views. COMPARISON: No exams were available for comparison FINDINGS: BONES: No acute fracture is present. No bony destructive lesion is seen. Small plantar calcaneal spu r. JOINTS: No dislocation present. Flatfoot deformity. Mild degenerative changes talonavicular joint. SOFT TISSUE: Normal. IMPRESSION: Mild degenerative changes and flatfoot deformity. DATA REPOSITORY: RADIATION DOSE DELIVERED:
--- NOTE | 2022-05-19 14:00 | DI.RAD_ITS ---
Exam(s) XR FOOT LT COMPLETE EXAM: XR FOOT LT COMPLETE CLINICAL HISTORY: foot pain,m79.671,m79.672. TECHNIQUE: 2D digital imaging was performed. Three views. COMPARISON: CR XR FOOT RT COMPLETE from 05/19/2022 FINDINGS: BONES: No acute fracture is present. No bony destructive lesion is seen. Plantar calcaneal spur. JOINTS: No dislocation present. Marked flattening of the plantar arch. degenerative changes greatest in the tarsal region. SOFT TISSUE: Normal. IMPRESSION: Flatfoot deformity and and tarsal degenerative changes. DATA REPOSITORY: RADIATION DOSE DELIVERED:
== END ==
PROVIDERS: PCP Nurse Practitioner Adult Health; Visit Provider Podiatrist Foot & Ankle Surgery
DX: M79.671 Pain in right foot (principal); M79.672 Pain in left foot; G89.29 Other chronic pain; M21.41 Flat foot [pes planus] (acquired), right foot; M77.31 Calcaneal spur, right foot; M77.32 Calcaneal spur, left foot; M21.42 Flat foot [pes planus] (acquired), left foot
CPT/HCPCS: 73630

== ENCOUNTER 2022-05-21 02:40 | Outpatient (CLI) | payer OTHER, SELFPAY ==
[2022-05-21 10:53] LABS: ALT 30 U/L (14-59); AST 17 U/L (15-37); Albumin 3.9 g/dL (3.4-5.0); Alkaline Phosphatase 79 U/L (46-116); Anion Gap 8.7 mmol/L (3-11); BUN 15 mg/dL (7-18); Bilirubin, Total 0.7 mg/dL (0.2-1.0); CO2 28.3 mmol/L (21.0-32.0); CREATININE 0.7 mg/dL (0.55-1.02); Calcium 9.1 mg/dL (8.5-10.1); Calculated LDL 93 mg/dL (<100); Chloride 101 mmol/L (98-107); Cholesterol 164 mg/dL (<200); Estimated GFR 98.95 (mL/min/1.73m2); Glucose 93 mg/dL (74-106); HDL Cholesterol 54 mg/dL (40-60); Potassium 3.8 mmol/L (3.5-5.1); Sodium 138 mmol/L (136-145); TSH (W/Ref FT4) 1.96 uIU/mL (0.36-3.74); Total Protein 7.6 g/dL (6.4-8.2); Triglyceride 86 mg/dL (<150)
== END 2022-05-21 02:41 | disposition home or self-care (01) ==
LOC: LBO 02:40
PROVIDERS: PCP Nurse Practitioner Adult Health; Visit Provider Nurse Practitioner Adult Health
DX: E03.9 Hypothyroidism, unspecified (principal); Z13.220 Encounter for screening for lipoid disorders; Z13.1 Encounter for screening for diabetes mellitus
CPT/HCPCS: 36415; 80053; 80061; 84443

== ENCOUNTER 2022-07-02 03:12 | Outpatient (CLI) | payer OTHER, SELFPAY ==
--- NOTE | 2022-07-02 14:35 | DI.MAMMO_ITS ---
Exam(s) MAMMO SCREENING EXAM: MAMMO SCREENING CLINICAL HISTORY: screening,Z12.39 TECHNIQUE: Mammograms were interpreted according to the usual protocol including computer analysis w [employer] CAD system, tomosynthesis and C-view imaging. COMPARISON: 2014 through 2020 FINDINGS: The breasts are composed of scattered fibroglandular densities, Breast Density category B. No suspicious masses or suspicious microcalcifications are seen. No skin thickening or abnormal axillary lymph nodes are seen. There has been no significant change from prior exams. IMPRESSION: BI-RADS Category 1, Negative mammogram Yearly screening mammography is recommended. Breast Density - Category B, scattered fibroglandular densities. A negative radiographic report should not delay biopsy if a dominant or clinically suspicious mass is present. Up to ten percent of cancers are not identified on mammography. A negative report may reinforce clinical impression. Adenosis and dense breasts may obscure an underlying neoplasm. False positive reports average 6 to 10%. Patient will receive a letter notifying them of these results.
== END 2022-07-02 03:32 ==
LOC: DI 03:12
PROVIDERS: PCP Nurse Practitioner Adult Health; Visit Provider Nurse Practitioner Adult Health
DX: Z12.31 Encounter for screening mammogram for malignant neoplasm of breast (principal)
CPT/HCPCS: 77063; 77067

== ENCOUNTER 2022-11-04 01:24 | Outpatient (CLI) | payer OTHER, SELFPAY ==
--- NOTE | 2022-11-04 08:00 | DI.RAD_ITS ---
Exam(s) XR KNEE LT 3V AP,LAT,MALIK EXAM: XR KNEE LT 3V AP,LAT,MALIK CLINICAL HISTORY: ?OA; ?eff; ?cyst,POST LT KNEE PAIN, M25.562. TECHNIQUE: 2D digital imaging was performed. COMPARISON: No exams were available for comparison FINDINGS: 3 views No evidence of acute fracture prominent joint effusion. However, there are significant osteoarthriti c changes. There is [id number] narrowing of the lateral compartment. Moderate narrowing of medial compartment. Advanced degenerative changes also evident in patellofemoral. No osseous lesions. IMPRESSION: Tricompartmental osteoarthritic degenerative changes as described above. DATA REPOSITORY: RADIATION DOSE DELIVERED:
== END 2022-11-04 01:44 ==
LOC: DI 01:24
PROVIDERS: PCP Nurse Practitioner Adult Health; Visit Provider Nurse Practitioner Adult Health
DX: M25.562 Pain in left knee (principal); M17.12 Unilateral primary osteoarthritis, left knee
CPT/HCPCS: 73562

== ENCOUNTER 2022-12-11 19:41 | Outpatient (REF) | payer OTHER, SELFPAY ==
[2022-12-11 21:39] LABS: Anion Gap 10.6 mmol/L (3-11); BUN 23 mg/dL (7-18); CO2 24.4 mmol/L (21.0-32.0); Calcium 9.2 mg/dL (8.5-10.1); Calculated LDL 105 mg/dL (<100); Chloride 104 mmol/L (98-107); Cholesterol 178 mg/dL (<200); Estimated GFR 64.09 (mL/min/1.73m2); Glucose 121 mg/dL (74-106); HDL Cholesterol 51 mg/dL (40-60); Sodium 139 mmol/L (136-145); Triglyceride 113 mg/dL (<150)
[2022-12-15 10:28] LABS: Lyme Ab w Rflx to Lyme Confirm Negative (Negative)
[2022-12-15 19:41] LABS: Anaplasma phagocytophilum Negative (Negative); B. miyamotoi PCR Negative (Negative); Babesia divergens/MO-1 Negative (Negative); Babesia duncani Negative (Negative); Babesia microti Negative (Negative); Ehrlichia chaffeensis Negative (Negative); Ehrlichia ewingii/canis Negative (Negative); Ehrlichia muris eauclairensis Negative (Negative)
== END 2022-12-11 19:42 | disposition home or self-care (01) ==
LOC: LBN 19:41
PROVIDERS: PCP Nurse Practitioner Adult Health; Visit Provider Nurse Practitioner Adult Health
DX: E03.9 Hypothyroidism, unspecified (principal); M25.59 Pain in other specified joint; E66.8 Other obesity; Z79.899 Other long term (current) drug therapy
CPT/HCPCS: 80048; 80061; 87798; 84443; 86618

== ENCOUNTER 2023-01-19 08:19 | Outpatient (CLI) | payer OTHER, SELFPAY ==
--- NOTE | 2023-01-19 08:00 | DI.RAD_ITS ---
Exam(s) XR KNEE RT 3V AP,LAT,MALIK EXAM: XR KNEE RT 3V AP,LAT,MALIK CLINICAL HISTORY: eval pain after R TKA. TECHNIQUE: 2D digital imaging was performed of the right knee. Three views obtained. Merchant, AP an d lateral views were obtained. COMPARISON: No priors for comparison. FINDINGS: BONES: No acute fracture is present. No bony destructive lesion is seen. JOINTS: There are postsurgical changes of a right total knee replacement. The orthopedic hardware ap pears in good position. No lucencies are seen in or about the orthopedic hardware. There is a small joint effusion. SOFT TISSUE: Normal. IMPRESSION: Right total knee replacement. DATA REPOSITORY: RADIATION DOSE DELIVERED:
--- NOTE | 2023-01-19 08:00 | DI.RAD_ITS ---
Exam(s) XR ANKLE LT COMPLETE EXAM: XR ANKLE LT COMPLETE CLINICAL HISTORY: eval L ankle pain, h/o OA TECHNIQUE: 2D digital imaging was performed of the left ankle. Three images were obtained. AP, lat eral and oblique views were obtained. COMPARISON: No exams were available for comparison FINDINGS: BONES: No acute fracture is present. No bony destructive lesion is seen. There is a small plantar shekhar caneal spur. Mild hypertrophic changes are seen at the tip of the medial malleolus. JOINTS:The ankle mortise is normally aligned. Mild degenerative changes are seen at the talonavicular joint in the articulation of the navicular and the cuneiforms. SOFT TISSUE: Normal. IMPRESSION: Degenerative changes of the foot. DATA REPOSITORY: RADIATION DOSE DELIVERED:
== END 2023-01-19 08:20 | disposition home or self-care (01) ==
LOC: DIORS 08:19
PROVIDERS: PCP Nurse Practitioner Adult Health; Referring Provider Nurse Practitioner Adult Health; Visit Provider Student in an Organized Health Care Education/Training Program
DX: M25.561 Pain in right knee; Z98.890 Other specified postprocedural states; Z96.651 Presence of right artificial knee joint; M19.072 Primary osteoarthritis, left ankle and foot
CPT/HCPCS: 73562; 73610

== ENCOUNTER 2023-06-08 11:11 | Outpatient (CLI) | payer OTHER, SELFPAY | END 2023-06-08 11:12 | disposition home or self-care (01) | LOC: DI.KIM 11:14 | PROVIDERS: PCP Nurse Practitioner Adult Health; Visit Provider Nurse Practitioner Adult Health | DX: Z87.891 Personal history of nicotine dependence (principal) | CPT/HCPCS: 93010 ==

== ENCOUNTER 2023-06-08 17:58 | Outpatient (REF) | payer OTHER, SELFPAY | END 2023-06-08 17:59 | disposition home or self-care (01) | LOC: LBN 17:58 | PROVIDERS: PCP Nurse Practitioner Adult Health; Visit Provider Nurse Practitioner Adult Health | DX: R30.0 Dysuria (principal) | CPT/HCPCS: 87086 ==

== ENCOUNTER 2023-07-01 07:55 | Day surgery (SDC) | payer OTHER, SELFPAY ==
[2023-07-01 08:28] VITALS: BP 138/74; PULSE 63; RESP 16; TEMP 36.3; O2SAT 97
[2023-07-01] MEDS: Lactated Ringers 1,000 ML 125 ML IV (08:53)
[2023-07-01 09:31] LABS: Abs Immature Grans 0.01 10^3/uL (0.0-0.06); Absolute Basophil Count 0.04 10^3/uL (0.0-0.2); Absolute Eosinophil Count 0.13 10^3/uL (0.0-0.7); Absolute Lymphocyte Count 0.85 10^3/uL (1.2-3.4); Absolute Monocyte Count 0.41 10^3/uL (0.1-0.8); Absolute Neutrophil Count 2.19 10^3/uL (1.2-6.7); Basophils % 1.1; Eosinophils % 3.6; HCT 38.8 % (36.0-46.0); Immature Grans % 0.3; Lymphocytes % 23.4; MCH 30.4 pg (27.0-33.0); MCHC 33.5 % (32.0-36.0); MCV 91 fL (80-95); MPV 11.1 fL (8.0-11.0); Monocytes % 11.3; Neutrophils % 60.3; Platelet Count 141 10^3/uL (130-400); RBC 4.28 10^6/uL (3.93-5.22); RDW 12.1 % (11.7-14.6); RDW-SD 40.3 fL; WBC 3.63 10^3/uL (4.4-10.8)
--- NOTE | 2023-07-01 09:32 | ANES.PREOP_ITS ---
General Info Date of Service Date Performed: 07/01/23 Height: 5 ft 5 in Weight: 123 kg Body Mass Index (BMI): 45.1 Surgical Procedure: Operation Date: 07/01/23 09:10 Proposed Procedure Side Surgeon p Dilation & Curettage with Hysteroscopy Sima Sweet MD Meds Allergies and Home Medications Allergies Allergy/AdvReac Type Severity Reaction Status Date / Time meloxicam AdvReac Intermediate bloody Unverified 07/01/23 08:36 stools benzonatate AdvReac Increased Unverified 07/01/23 08:36 Cough gabapentin AdvReac Headaches Unverified 07/01/23 08:36 Home Medication Medication Instructions Recorded diclofenac sodium 1 % topical gel 4 g topical QID PRN ankle & foot 07/24/22 pain #100 grams acetaminophen 500 mg tablet 500 mg PO Q6H PRN PRN pain #40 tabs 07/26/22 celecoxib 200 mg capsule (Celebrex) 200 mg PO DAILY #90 caps 09/03/22 levothyroxine 175 mcg tablet 175 mcg PO DAILY thyroid #90 tabs 03/04/23 (Levoxyl) acetaminophen 650 mg 650 mg PO Q12H PRN 05/28/23 tablet,extended release (Tylenol Arthritis Pain) fluticasone propionate 50 2 spray intranasal DAILY #16 grams 06/08/23 mcg/actuation nasal spray,suspension (Flonase Allergy Relief) Current Visit Medications: Current Medications Generic Name Dose Route Start Last Admin Trade Name Freq PRN Reason Stop Dose Admin Ringer's Solution 1,000 mls @ 125 mls/hr 07/01/23 06:00 07/01/23 08:53 IV 07/01/23 23:59 125 mls/hr INFUSION BRYAN Administration IV Miscellaneous Supplies 1 each 07/01/23 06:00 Iv Access IV 07/01/23 23:59 DIRECTED BRYAN Sodium Chloride 0 ml 07/01/23 06:00 Normal Saline Flush 10 Ml Syr IV 07/01/23 23:59 PRN PRN Sodium Chloride 0 ml 07/01/23 06:00 Normal Saline 10 Ml Vial IJ 07/01/23 23:59 DIRECTED PRN Sterile Water 0 ml 07/01/23 06:00 Water,Injection,Sterile 10 Ml Vial IJ 07/01/23 23:59 DIRECTED PRN PFSH Active Problems Active Problems: Problem Status Onset Code Arthritis of left midfoot M19.072 Osteoarthritis of talonavicular joint 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 Left ankle pain M25.572 Painful total knee replacement, right T84.84XA, Z96.651 Left knee DJD ~10/2022 M17.12 Skin lesion of left leg L98.9 Polyarthralgia ~04/2022 M25.50 Pain, foot M79.673 Nail dystrophy L60.3 Diastasis recti M62.08 Internal hemorrhoids K64.8 Onychomycosis B35.1 Umbilical hernia K42.9 Right inguinal hernia K40.90 Neck pain M54.2 Family history of breast cancer in sister Z80.3 Varicose veins of both legs with edema I83.893 Degenerative spondylolisthesis M43.10 Hypothyroid E03.9 Obesity E66.9 History of tobacco use Z87.891 Chronic pain of both feet M79.671, M79.672, G89.29 Diverticulosis large intestine w/o perforation or abscess w/o bleeding K57.30 Medical History Medical History Bloody stool s/p meloxicam Neuropathy Endocervical polyp Benign ([facility]) Endometrial thickening on ultrasound Endometrial BX NEG 07/2020 Post-menopausal bleeding 2019: [facility] work-up benign; if reoccurs-->recommend hysteroscopy 05/2023: Reoccurrence Category 3 mammography result with short follow-up interval suggested for probably benign finding +Fam hx in Sister as well, age 59yo. [facility] [place] & Cat 1; pt to still have 6m F/U L breast f/u 11/2020 Depression History of heavy alcohol consumption Primary osteoarthritis of right knee s/p R TKR Synovial cyst of popliteal space [Gilbert], right knee Decreased libido Overactive bladder Surgical History Surgical History History of carpal tunnel release left History of right knee surgery TKR Dr. Kenyon, [facility] [place] History of dilation and curettage Right carpal tunnel syndrome S/P R ECTR: 01/28/2022 Ligation of fallopian tube Hernia Repair, Incisional RUQ abd hernia with subsequent repair Colonoscopy - MAC (11/10/16) Cholecystectomy Tobacco Smoking/Tobacco Use Status: Former Tobacco Use Passive smoking exposure: Yes Alcohol Alcohol Intake: current Alcohol intake frequency: a few times a week Alcohol type: wine Substance Use Substance use: Never Substance use type: does not use Prental History History 2 1 Para 0 Hx # Term Pregnancies Multiple births Hx # Pregnancies Ectopic pregnancies AB induced 1 Hx Number of Living Children AB spontaneous Vital Signs and Lab Results Vital Signs Most Recent Vital Signs in EMR: Most Recent Vital Signs Temp Pulse Resp BP Pulse Ox 36.3 C L 63 16 138/74 97 07/01/23 08:28 07/01/23 08:28 07/01/23 08:28 07/01/23 08:28 07/01/23 08:28 Lab Results 07/01/23 09:24 Blood Type / Crossmatch: 2 Patient ABO/Rh Pending 07/01/23 Complete Blood Count: 2 White Blood Count 3.63 10^3/uL (4.4-10.8) L 07/01/23 09:24 Red Blood Count 4.28 10^6/uL (3.93-5.22) 07/01/23 09:24 Hemoglobin 13.0 g/dL (11.2-15.7) 07/01/23 09:24 Hematocrit 38.8 % (36.0-46.0) 07/01/23 09:24 Platelet Count 141 10^3/uL (130-400) 07/01/23 09:24 Complete Metabolic Panel: 2 No Data to Display Liver Function Panel: 2 No Data to Display Coagulation Panel: 2 No Data to Display Cardiac Panel: 2 No Data to Display Arterial Blood Gas: 2 No Data to Display Venous Blood Gas: 2 No Data to Display Pancreas Panel: 2 No Data to Display Thyroid Panel: 2 No Data to Display Infectious Disease: 2 No Data to Display Blood Cultures: 2 No Data to Display Toxicology Panel: 2 No Data to Display Imaging and Studies Imaging and Studies Study information below may be from another EMR and interpreted by another provider. Please see original notes in EMR for more complete details. EKG Summary: DATE/TIME OF SERVICE: 03/18/21 1128 : 2PERFORMING LOCATION: [facility] APPROVED REPORT Exam: Resting ECG Reason for Exam: chest pain Patient Location: O HR:59 bpm ECG Measurements Heart Rate 59 AXIS DE 151 P -41 QRSd 95 QRS 2 QT 405 T4 QTc 400 Conclusion Sinus bradycardia...rate< 60 Anesthesia Assessment and Plan Anesthesia History Personal History: No History of Anesthesia Complications Family History: No Family History of Anesthesia Complications Exercise Tolerance Exercise Tolerance: Metabolic Equivalents>4 Pertinent Negatives Pertinent Negatives: No Major Cardiovascular Symptoms or Complaints and No Major Pulmonary Symptoms or Complaints Cardiac & Pulmonary Exam Cardiac Exam: Normal S1/S2 Heart Sounds Pulmonary Exam: Clear Bilateral Breath Sounds Implantable Cardiac Device Does patient have a Pacemaker or an ICD?: No Airway Exam Known Difficult Airway: No Mallampati Class: 1 Mouth Opening: Normal (> 3cm) Thyromental Distance: Greater than 3 cm Neck Range of Motion: Full ROM Neck Circumference: Normal Teeth Condition: Normal Dentition (Dental plate removed) ASA Classification ASA Score: ASA 3 Emergency Case?: No NPO Status NPO Status: NPO Clears >2 hours, Solids >8 hours Anesthesia Plan Resuscitation Status: Full Code Anesthesia Technique: General Anesthesia Airway Planned: LMA Monitors Used: Standard Monitors and SedLine
[2023-07-01 09:35] VITALS: BMI 45.1
[2023-07-01] MEDS: Bupivacaine 0.25% Pres-Free 30 ML VIAL (11:11)
--- NOTE | 2023-07-01 11:17 | ENDOMET_PTH ---
PATIENT: Kandy Durán LOC: [facility] U#:[id number] AGE/SX: 62/F ROOM: RE07/01/[address]: Sima Sweet MD : 1960 BED: DIS: 07/01/2023 SPEC #: [id number] RECD: 07/01/23 13:07 STATUS: NILTON PEREZ #: [id number] ELVIA: 07/01/23 11:[address]: Sima Sweet DEPT: Surgical Specimen RECD BY: Jamia Winn ENTERED: 07/01/23 13:07 SP TYPE: Endomet OTHR DR: Rebecca Giles APRN Tissues: 1 - ENDOMETRIUM BX/IRMA Procedures: GROSS AND MICRO LEVEL 4 IMMUNOPEROXIDASE STAIN Comments: [id number]
--- NOTE | 2023-07-01 11:32 | W.PM.OP ---
Date of service: 07/01/23 Time of Service: 11:00 Operative Note Operative Note DATE OF PROCEDURE: 07/01/23 PRE-OP DIAGNOSIS: Post menopausal bleeding POST-OP DIAGNOSIS: same Endometrial polyps PROCEDURE: Hysteroscopy D&C, polypectomy with myosure SURGEON: Sima Sweet Refer to Anesthesia Record ESTIMATED BLOOD LOSS: 10 COMPLICATIONS: None Patient was transported to: PACU Patient's condition: stable Indications: Pt had an episode of brown spotting with a sono showing a 1.5cm endometrial stripe. She had a benign endo bx several years ago with an endometrial lining that was 1.1cm at that time. Findings: Small polyp noted coming from the external os. Numerous polyps within the endometrial cavity. Procedure Description: After informed consent was signed the patient was taken to the operating room and given General room air anesthesia. SCDs were placed on her legs. She was prepped and draped in the dorsal lithotomy position in the [facility]. A time out was performed. Her bladder was drained of urine if not done immediately prior to entrance to the OR. Exam under anesthesia revealed normal external genitalia, vagina normal for age and a normal sized uterus. A speculum was placed into the vagina to reveal the cervix. The anterior lip of the cervix was grasped with a single tooth tenaculum. A paracervical block was given with 15ml of 0.25% marcaine. The cervix was dilated. The mysure camera was inserted and the previously noted findings were seen. The myosure reach was inserted into the device and used to morecellate the uterine polyps always under direct visualization. After the polyps were removed the myosure was removed from the cervix and a sharp curettage was performed with only a small amount of tissue received. There was minimal bleeding from the cervix at the completion of the procedure. The tenaculum was removed from the cervix with good hemostasis. The speculum was removed from the vagina. The patient was placed back into the supine position. She was moved to the stretcher and taken to the recovery room in stable condition.
[2023-07-01 11:33] VITALS: BP 140/87; PULSE 57; RESP 15; TEMP 36.4; O2SAT 93
[2023-07-01 11:38] VITALS: BP 128/72; PULSE 58; RESP 15; TEMP 36.4; O2SAT 94
[2023-07-01 11:43] VITALS: BP 132/82; PULSE 56; RESP 16; TEMP 36.5; O2SAT 94
--- NOTE | 2023-07-01 11:45 | W.ANESPOSTOP ---
Postoperative Evaluation Date, Time and Location Date Performed: 07/01/23 Time Performed: 11:46 Patient Location: PACU Vital Signs Most Recent Imported Vital Signs: Most Recent Vital Signs Temp Pulse Resp BP Pulse Ox 36.3 C L 63 16 138/74 97 07/01/23 08:28 07/01/23 08:28 07/01/23 08:28 07/01/23 08:28 07/01/23 08:28 Assessment Mental Status: Arousable with meaningful communication Airway and Respiratory Function: Patent airway with normal (patient baseline) respiratory exam Cardiovascular Function: Hemodynamically Stable Hydration Status: Adequately Hydrated Nausea & Vomiting: No Nausea or Vomiting Pain: Pt. Denies Any Pain Peripheral Nerve Block: Patient did not receive a nerve block
[2023-07-01 11:50] VITALS: BP 134/89; PULSE 51; RESP 16; TEMP 36.4; O2SAT 96
[2023-07-01 12:04] VITALS: BP 137/81; PULSE 53; RESP 16; TEMP 36.6; O2SAT 96
== END 2023-07-01 13:00 | disposition home or self-care (01) ==
PROVIDERS: PCP Nurse Practitioner Adult Health; Visit Provider Obstetrics & Gynecology
PROC: 0UDB8ZZ Extraction of Endometrium, Via Natural or Artificial Opening Endoscopic (ICD-10-PCS; CPT 58558; principal; 2023-07-01 09:00)
DX: N95.0 Postmenopausal bleeding (principal); N84.0 Polyp of corpus uteri
CPT/HCPCS: 58558; 36415; 86850; 86900; 86901; 88305; 85025; 88361; J0665; J1100; J1885; J2001; J2250; J2405; J2704

== ENCOUNTER → 2023-07-24 00:42 | Outpatient (CLI) | payer OTHER, SELFPAY ==
--- NOTE | 2023-07-24 11:48 | DI.MAMMO_ITS ---
Exam(s) MAMMO SCREENING EXAM: MAMMO SCREENING CLINICAL HISTORY: screening.Z12.39 TECHNIQUE: Mammograms were interpreted according to the usual protocol including computer analysis w [employer] CAD system, tomosynthesis and C-view imaging. COMPARISON: 2014 through 2022 FINDINGS: The breasts are composed of scattered fibroglandular densities, Breast Density category B. No suspicious masses or suspicious microcalcifications are seen. No skin thickening or abnormal axillary lymph nodes are seen. There has been no significant change from prior exams. IMPRESSION: BI-RADS Category 1, Negative mammogram Yearly screening mammography is recommended. Breast Density - Category B, scattered fibroglandular densities. A negative radiographic report should not delay biopsy if a dominant or clinically suspicious mass is present. Up to ten percent of cancers are not identified on mammography. A negative report may reinforce clinical impression. Adenosis and dense breasts may obscure an underlying neoplasm. False positive reports average 6 to 10%. Patient will receive a letter notifying them of these results.
== END ==
PROVIDERS: PCP Nurse Practitioner Adult Health; Visit Provider Nurse Practitioner Adult Health
DX: Z12.31 Encounter for screening mammogram for malignant neoplasm of breast (principal)
CPT/HCPCS: 77063; 77067

== ENCOUNTER 2023-07-29 10:29 | Outpatient (CLI) | payer OTHER, SELFPAY ==
--- NOTE | 2023-07-29 10:15 | RT.EKG_ITS ---
APPROVED REPORT Exam: Resting ECG Reason for Exam: Baseline Patient Location: O HR:47 bpm ECG Measurements Heart Rate 47 AXIS DE 164 P 1 QRSd 90 QRS -1 QT 434 T 17 QTc 384 Conclusion Sinus bradycardia...rate< 50 I have reviewed and interpreted ECG and agree with software generated interpretation.
== END 2023-07-29 10:30 | disposition home or self-care (01) ==
LOC: DI.KIM 10:40
PROVIDERS: PCP Nurse Practitioner Adult Health; Visit Provider Nurse Practitioner Adult Health
DX: Z82.79 Family history of other congenital malformations, deformations and chromosomal abnormalities (principal)
CPT/HCPCS: 93010

== ENCOUNTER 2023-07-30 11:28 | Outpatient (REF) | payer OTHER, SELFPAY ==
[2023-07-31 13:27] LABS: Helicobacter pylori Ag, Feces Positive (Negative)
== END 2023-07-30 11:29 | disposition home or self-care (01) ==
LOC: LBN 11:28
PROVIDERS: PCP Nurse Practitioner Adult Health; Visit Provider Nurse Practitioner Adult Health
DX: R14.3 Flatulence (principal); R10.11 Right upper quadrant pain
CPT/HCPCS: 87338

== ENCOUNTER → 2023-08-17 00:55 | Outpatient (CLI) | payer OTHER, SELFPAY ==
--- NOTE | 2023-08-17 06:53 | ETT_ITS ---
APPROVED REPORT Exam: Exercise Treadmill Patient Location: Out-Patient Room/Bed: Stress Nurse: Meeta Contreras RN Ordering Provider:KIMANI GONZALES, Contact Number: [phone] BMI: 43.26 Baseline Rhythm: Sinus Bradycardia Indications: Chest pain Medical History Medical History: Neuropathy, Depression, hx of heavy etoh use, RTKR, polyarthralgia, obesity, former tobacco use Cardiac Medications: None Allergies: Meloxicam, Gabapentin, Benzonatate Cardiac Risk Factors: Former smoker, obesity Previous Cardiac Procedures: None Pretest Chest Pain Characteristics: None Exercise History: Sedentary Physical Disabilities: None Lung Sounds: LCTA Heart Sounds: Regular Stress Test Details Test: Exercise stress testing was performed using a Azeem protocol. Rest Stress HR Resting HR Supine: 59 bpm Max Heart Rate (APMHR): 159 bpm Resting HR Standin bpm Target HR (85% APMHR): 135 bpm Max HR Achieved: 136 bpm % of APMHR: 86 Recovery HR: 60 bpm HR response to stress: Accelerated HR response to stress Comment: From laying to standing patient HR will go from 59-60 to 90-100's BP Resting BP Supine: 104/72 mmHg Resting BP Standin/88 mmHg Max BP: 154/84 mmHg Recovery BP: 120/80 mmHg BP response to stress: Normal blood pressure response to stress. ECG Resting ECG: Sinus Bradycardia Ectopy: None Stress ECG: Sinus Tachycardia ST Change: No significant ST segment changes noted Arrhythmia: None Recovery ECG: Sinus Rhythm Recovery ST Change: No significant ST segment changes noted Recovery Arrhythmia: 1 PVC Clinical Reason for Termination: Fatigue, Target HR Achieved Stress Symptoms: Shortness of breath, dizziness Exercise duration: 2 min54 sec Highest Stage Reached: Stage 1: 1.7 mph at 10% grade. Exercise capacity: 4.64 METs Angina Score: None Joseph Treadmill Score: 2.7 Rate Pressure Product: [id number] Stress ECG Conclusion 1. Resting electrocardiogram was within normal limits 2. Patient exercised on the Azeem protocol completed stage I, a workload of 4.64 METS 3. Normal blood pressure response to exercise. Rapid heart rate response to exercise suggest decondi tioning. Peak heart rate achieved was 86% of predicted for age 4. There was no electrocardiographic evidence of myocardial ischemia 5. There were no dysrhythmias Joseph Treadmill Score is 2.7 which is Moderate risk. Stress Test Summary STAGE Time (mins) Speed (mph) Grade (%) HR BP SpO2 SYMPTOMS METS Supine 59 104/72 Standing 79 118/88 1 3 1.7 10 135 4.5 1 min recovery 101 154/84 3 min recovery 60 112/70 6 min recovery 59 138/80 9 min recovery 60 120/80 Of Note: Patient HR noticed to be very sensitive to position change. From lying to standing it was no angelica to go from 59 bpm to 90-100 bpm almost immediately and patient expressed dizziness with position changes. This was noted prior to test and then tested again after test with the same heart rate respo nse noted.
== END ==
PROVIDERS: PCP Nurse Practitioner Adult Health; Visit Provider Nurse Practitioner Adult Health
DX: R07.89 Other chest pain (principal)
CPT/HCPCS: 93017

== ENCOUNTER → 2023-08-28 00:24 | Outpatient (CLI) | payer OTHER, SELFPAY ==
[2023-08-28 13:14] LABS: CREATININE 0.9 mg/dL (0.55-1.02); Estimated GFR 72.73 (mL/min/1.73m2)
[2023-08-28] MEDS: Omnipaque 350 MG/ML 100 ML BTL IJ (14:19)
[2023-08-28] MEDS: Normal Saline - Diluent 50 ML VIAL IJ (14:21)
[2023-08-28] MEDS: Barium Sulfate 2% W/V-Creamy Vanilla Smoothie 450 ML BTL PO ×2 (14:21→14:22)
--- NOTE | 2023-08-28 14:30 | DI.CT_ITS ---
Exam(s) CT ABDOMEN PELVIS W EXAM: CT ABDOMEN PELVIS W CLINICAL HISTORY: ? Hernias larger;? Mass,abd pain,diverticulosis,r10.9 TECHNIQUE: Imaging Protocol: Axial computed tomography images with coronal and sagittal reformatted images were created and reviewed. CONTRAST MATERIAL: Intravenous: Omnipaque 350 Contrast volume:100 mL Oral: Yes COMPARISON: CT CT ABDOMEN PELVIS W from 03/20/[address] CHEST LUNG CANCER SCREEN from 06/14/2021 FINDINGS: ABDOMEN: Lung Bases: There is a stable small hiatal hernia. Liver: Normal density. No measurable mass. Portal, Superior Mesenteric, and Splenic Veins: Unremarkable. Gallbladder and Biliary Tract: Status post cholecystectomy. Stable 1 cm extrahepatic bile duct. Thi s likely reflects post cholecystectomy state. Pancreas: Normal density, no abnormal calcifications or inflammatory process. Spleen: Normal. Adrenals: No masses seen. Kidneys: Normal size, contour and axis. No radiodense stones or obstructive uropathy. No masses seen. Abdominal Aorta: Abdominal portion non-dilated. Atherosclerotic calcification. Bowel: There is diverticulosis of the colon without evidence of acute diverticulitis. No evidence of bowel obstruction or bowel wall thickening. Appendix is unremarkable. Peritoneal Cavity: No ascites, collection or mesenteric inflammatory response. No free air. Lymph Nodes: Within normal limits. Bones: Within normal limits for the patient's age. Soft Tissues: There is a small fat containing umbilical hernia. There has been no change in size of the fat containing right inguinal hernia. PELVIS: Bladder: Symmetric distention, no gross wall thickening. Reproductive Organs: Fibroids are seen in the uterus. Lymph Nodes: Within normal limits. Bones: Within normal limits for the patient's age. IMPRESSION: 1. Stable small hiatal hernia. Stable fat containing right inguinal hernia. Stable small fat contai christina umbilical hernia. 2. Colonic diverticulosis without evidence of acute diverticulitis. RADIATION DOSE DELIVERED: 1,475.23mGy.cm Total DLP DATA REPOSITORY: All CT scans at this facility are submitted to the National Radiology Data Registry (NRDR) Dose Index Registry (DIR) with the [employer] (A[employer]). RADIATION OPTIMIZATION: All CT scans at this facility use at least one of these dose optimization te chniques: automated exposure control; mA and/or kV adjustment per patient size (includes targeted exa ms where dose is matched to clinical indication); or iterative reconstruction.
== END ==
PROVIDERS: PCP Nurse Practitioner Adult Health; Visit Provider Nurse Practitioner Adult Health
DX: K44.9 Diaphragmatic hernia without obstruction or gangrene; R10.11 Right upper quadrant pain; K57.90 Diverticulosis of intestine, part unspecified, without perforation or abscess without bleeding; K40.90 Unilateral inguinal hernia, without obstruction or gangrene, not specified as recurrent; K42.9 Umbilical hernia without obstruction or gangrene; Z90.49 Acquired absence of other specified parts of digestive tract; Z01.812 Encounter for preprocedural laboratory examination
CPT/HCPCS: 74177; 82565; J3490

== ENCOUNTER 2023-11-19 15:00 | Emergency (ER) | payer OTHER, SELFPAY ==
[2023-11-19 15:04] VITALS: BP 161/121; PULSE 64; RESP 18; TEMP 36.5; O2SAT 98
[2023-11-19 15:10] VITALS: BP 124/87
--- NOTE | 2023-11-19 15:15 | DI.CT_ITS ---
Exam(s) CT LUMBAR SPINE RECONS CT ABDOMEN PELVIS W EXAM: CT ABDOMEN PELVIS W CLINICAL HISTORY: lower left abdominal and back pain. TECHNIQUE: Imaging Protocol: Axial computed tomography images with coronal and sagittal reformatted images were created and reviewed. Images of the lumbar spine were reconstructed from the abdomen pelvic CT and soft tissue in bone [facility] [place]. CONTRAST MATERIAL: Intravenous: Omnipaque 350 Contrast volume:100 ml Oral: / no COMPARISON: CT ABD PELVIS WITH CONTRAST from 05/20/[address] ABDOMEN PELVIS W from 03/20/[address] ABDOMEN PELVIS W from 08/28/[address] LUMBAR SPINE RECONS from 11/19/2023 FINDINGS: ABDOMEN and PELVIS: Lung Bases: No acute findings. Liver: Fatty infiltration. No suspicious mass. Gallbladder and biliary tract: Status post cholecystectomy. No radiodense calculus. No biliary dila tion. Pancreas: Normal density. No abnormal calcifications or inflammatory process. No evidence of mass. Spleen: Normal. Kidneys: Normal size, contour and axis. No visible stones. No obstructive uropathy. No suspicious m asses seen. Adrenal glands: No masses seen. Vasculature: Abdominal aorta non-dilated. Soft tissues: Small fat containing umbilical hernia. Right inguinal hernia which appears to contain the right ovary. Varicosities are seen and the anterior proximal right upper thigh. Bladder: No gross wall thickening. No calculi.No focal mass. Bowel: No obstruction. No bowel wall thickening. Appendix normal.Severe diverticulosis of the sigmo id region. No evidence of diverticulitis. Moderate quantity of stool. Peritoneal cavity: No ascites. No focal collection. No mesenteric inflammatory response. Bones: Severe degenerative changes in the lumbar spine. Prominent endplate osteophytes throughout. Severe narrowing of the L5-S1 disc space. Prominent facet degenerative changes. Bilateral neural fo raminal narrowing. No disc herniation is visible. No significant central canal stenosis. Reproductive organs: Nodular contour to the uterus, consistent with fibroids. Tubal ligation clips. Right inguinal hernia which appears to contain the right ovary. There is no evidence of surrounding edema or fluid. Of the findings are unchanged over multiple prior exams. The left ovary is in norm al position. Lymph nodes: No pathologically enlarged lymph nodes. IMPRESSION:: No acute abnormality in the abdomen or pelvis. Severe diverticulosis of evidence of diverticulitis. Stable appearance of right inguinal hernia containing the right ovary. Degenerative changes in the spine. No acute abnormality. RADIATION DOSE DELIVERED: 1,292.43mGy.cm Total DLP DATA REPOSITORY: All CT scans at this facility are submitted to the National Radiology Data Registry (NRDR) Dose Index Registry (DIR) with the [employer] (ACR). RADIATION OPTIMIZATION: All CT scans at this facility use at least one of these dose optimization te chniques: automated exposure control; mA and/or kV adjustment per patient size (includes targeted exa ms where dose is matched to clinical indication); or iterative reconstruction.
--- NOTE | 2023-11-19 15:21 | W.ED.GENAD ---
Discharge Plan Disposition Patient Disposition: Home Condition: Stable Discharge Details Clinical Impression: Lower back pain, Left lower quadrant abdominal pain Primary Care Provider: Rebecca Giles ED Provider: Tod North Home Meds and New Rx's Prescriptions: Continued acetaminophen [Tylenol Arthritis Pain] 650 mg tablet extended release 650 mg PO Q12H PRN Rx Instructions: uses 2-3 per week levothyroxine [Levoxyl] 175 mcg tablet 175 mcg PO DAILY Qty: 90 3RF celecoxib [Celebrex] 200 mg capsule 200 mg PO DAILY Qty: 90 3RF Rx Instructions: Arthritis pain Discharge Instructions Additional Instructions: Your labs and imaging did not show acute findings Keep your arm elevated with ice frequently Follow-up with your primary care provider within 1 to 2 weeks If you feel more ill, have severe worsening pain or any symptoms such as high fevers return to the emergency department for reevaluation HPI General Mode of arrival: ambulatory. Date/Time Provider Initiated Documentation: 11/19/23 15:02. Limitations to Documentation: no limitations. Information obtained by: patient. History of Present Illness 63 year old F presents to the emergency department with the chief complaint of Lower back pain, described as moderate, and is localized to the left. Patient abdomen. Patient started experiencing this day(s) (1) and it has been constant. No relieving factors improve symptom(s), No exacerbating factors reported . Patient notes denies fever/chills. Patient did receive the following treatments prior to arrival, none Related Data Home Medications Medication Instructions Recorded Confirmed levothyroxine 175 mcg tablet 175 mcg PO DAILY thyroid #90 tabs 03/04/23 11/19/23 (Levoxyl) acetaminophen 650 mg 650 mg PO Q12H PRN 05/28/23 11/19/23 tablet,extended release (Tylenol Arthritis Pain) celecoxib 200 mg capsule (Celebrex) 200 mg PO DAILY #90 caps 09/11/23 11/19/23 Previous Rx's Medication Instructions Recorded levothyroxine 175 mcg tablet 175 mcg PO DAILY thyroid #90 tabs 03/04/23 (Levoxyl) celecoxib 200 mg capsule (Celebrex) 200 mg PO DAILY #90 caps 09/11/23 Allergies Allergy/AdvReac Type Severity Reaction Status Date / Time meloxicam AdvReac Intermediate bloody Verified 11/19/23 15:08 stools benzonatate AdvReac Increased Unverified 11/19/23 15:08 Cough gabapentin AdvReac Headaches Unverified 11/19/23 15:08 General Stated Complaint: Nk/Back Pain REBECA: 3 Review of Systems All systems reviewed & are unremarkable except as noted in HPI and below Constitutional Constitutional: Denies chills, Denies fever(s) and Denies weakness Cardiovascular Cardiovascular: Denies chest pain and Denies dyspnea Respiratory Respiratory: Denies cough and Denies dyspnea Gastrointestinal Gastrointestinal: Reports abdominal pain, Denies nausea and Denies vomiting Genitourinary Genitourinary: Denies dysuria Integumentary/Breasts Skin/Breast: Denies rash Neurologic Neurologic: Denies weakness Exam Const General: no acute distress Orientation: alert HENMT Head: normal to inspection Ears: external ears normal General nose exam: external nose normal Mouth: moist mucous membranes Eyes General: appearance normal, both eyes and all related structures Neck Neck: normal visual inspection Resp Effort & Inspection: normal respiratory effort and able to speak in complete sentences Cardio Rate: regular rate GI Palpation: soft, not firm, no guarding and tender Back/Spine/Pelvis Back: no CVA tenderness, No erythema and No warmth Skin General skin exam: no rashes or lesions noted Neuro General: patient alert and patient oriented x3 Extrem General: normal to inspection Psych Mental Status: mental status grossly normal Course Vital Signs Vital signs: Vital Signs Temperature 36.5 C 11/19/23 15:04 Pulse 64 11/19/23 15:04 Respiratory Rate 18 11/19/23 15:04 Blood Pressure 161/121 H 11/19/23 15:04 Pulse Oximetry 98 11/19/23 15:04 Temperature 36.5 C 11/19/23 15:04 Temperature Source Skin 11/19/23 15:04 Pulse 64 11/19/23 15:04 Respiratory Rate 18 11/19/23 15:04 Respiratory Effort Normal 11/19/23 15:07 Blood Pressure 124/87 11/19/23 15:10 Blood Pressure Position Sitting 11/19/23 15:04 Pulse Oximetry 98 11/19/23 15:04 Oxygen Delivery Method Room Air 11/19/23 15:04 Oxygen Flow Rate 0 11/19/23 15:04 Medical Decision Making 63-year-old female with a history of hypothyroidism who comes in with complaints of left lower back pain. She says that she had started at work while she was walking around, denies any falls or trauma. She has not had any fevers or chills, denies any difficulty urinating or changes in bowel habits, no IV drug use. She says today started radiating to her abdomen so she came here for evaluation. She is alert and oriented x 4 on arrival, speaking clearly, normal gait. She localizes the pain to the left lower lumbar region, has reproducible tenderness in this area no midline tenderness, no erythema or warmth. Has no at saddle anesthesia, intact sensation and pulses, normal patellar reflexes. She does have some minimal left lower quadrant tenderness without guarding or rebound, no tenderness elsewhere in the abdomen. Suspect musculoskeletal back pain but will obtain CT abdomen pelvis along with CBC, CMP, lipase given her tenderness in the left lower quadrant to evaluate for possible diverticulitis. No findings on exam or history to suggest cauda equina, osteomyelitis, spinal epidural abscess. Patient's labs and imaging unremarkable. Patient did have some extravasation of contrast in her left forearm, she had mild swelling, intact sensation and pulses, was treated with elevation and ice packs and observed for 2 hours without concerns for compartment syndrome has no pain and intact sensation. Patient has no abdominal tenderness, has mild left lower back pain, still no signs of cauda equina. Suspect musculoskeletal back pain, advised to follow-up with her PCP return precautions given Differential Diagnosis Differential Diagnosis: Kidney stone, back strain, disc herniation, diverticulitis Medical Records Medical records reviewed: Yes I reviewed the patient's medical records. Imaging Data Radiologic Study: Attestation: I personally reviewed and interpreted this imaging study as follows: Imaging: CT Scan Radiologist's impression: IMPRESSION:: No acute abnormality in the abdomen or pelvis. Severe diverticulosis of evidence of diverticulitis. Stable appearance of right inguinal hernia containing the right ovary. Degenerative changes in the spine. No acute abnormality. Lab Data Lab results reviewed: Yes I reviewed the patient's lab results. Quality:SDOH Health Related Social Needs: No Data to Display PFSH All Active Problems (Updated 11/19/23 @ 18:31 by Tod North MD) Left lower quadrant abdominal pain (Acute) Lower back pain (Acute) H. 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 Pain, foot (Acute) Nail dystrophy (Acute) Diastasis recti (Acute) Internal hemorrhoids (Acute) Onychomycosis (Acute) Umbilical hernia (Chronic) Seen on CT 2015 Right inguinal hernia (Chronic) Seen on CT 2015 & 2020 Neck pain (Acute) C-spine x-ray 06/13/2020 Varicose veins of both legs with edema (Chronic) Trialed thigh-high compression stockings Referred to Vasc Surgery for options 07/11/2019 Degenerative spondylolisthesis (Chronic) Lumbar spine Radicular RLE 03/[address] x-[address] [facility] Hypothyroid (Chronic) Obesity (Chronic) Chronic pain of both feet (Chronic) Diverticulosis large intestine w/o perforation or abscess w/o bleeding (Chronic) CT 2016; Colonoscopy 2017: lacy diverticulosis Medical History (Updated 11/19/23 @ 18:31 by Tod North MD) Family history of breast cancer in sister History of tobacco use 15 years and quit in 2015 Diverticulosis Severe--seen on imaging Postmenopausal atrophic vaginitis Start vaginal estradiol 07/14/23 Bloody stool s/p meloxicam Neuropathy Endometrial thickening on ultrasound Endometrial BX NEG 07/2020: polyps removed hysteroscopically Post-menopausal bleeding 2019: [facility] work-up benign 05/2023: Reoccurrence with hysteroscopic sampling showing endometrial polyps. Norethindrone x3mo. Category 3 mammography result with short follow-up interval suggested for probably benign finding +Fam hx in Sister as well, age 59yo. [facility] 2nd opinion reviewed & Cat 1; pt to still have 6m F/U L breast f/u 11/2020 Depression History of heavy alcohol consumption Primary osteoarthritis of right knee s/p R TKR Synovial cyst of popliteal space [Gilbert], right knee Overactive bladder Surgical History (Updated 10/06/23 @ 13:15 by Sima Sweet MD) History of hysteroscopy with polypectomy Jun 2023 History of carpal tunnel release left History of right knee surgery TKR Dr. Kenyon, [facility] History of dilation and curettage Right carpal tunnel syndrome S/P R ECTR: 01/28/2022 Ligation of fallopian tube Hernia Repair, Incisional RUQ abd hernia with subsequent repair Colonoscopy - MAC (11/10/16) Cholecystectomy Family History Sister Breast cancer post-menopausal (alive) Brother Diabetes Nephew Diabetes Mother Dementia Father Tongue cancer Social History Smoking/Tobacco Use Status: Former Tobacco Use tobacco type: cigarettes Quit Date: 06/29/05 Pack-years: 30 Tobacco: How many years used: 30 Quit status: quit date established Smoking risk assessment performed?: Yes Alcohol Intake: current Alcohol Intake frequency: a few times a week Alcohol type: wine Drug use: Never Substance use type: does not use Adopted: No Caregiver/Support person: No Foster care: No Household members: spouse Housing: house Number of Children: 0 Communication Needs: Corrective Lenses Education Level: high school Do you need help understanding health information?: Never 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, [employer] Pets and animals: Yes (2 cats) Pets and animals: cat(s) Sexually active: No Do you think of yourself as: straight/heterosexual Current gender identity: female What is your relationship status?: How often do you talk on the phone with friends or family?: twice per week How often do you get together with friends or relatives?: once per week How often do you attend roman catholic or episcopal services?: 1-3 times per year Do you belong to any clubs or organized social groups?: no Panel score (0-1 are the most socially isolated patients): 2 NHANES result reviewed/action taken: No What type of physical activity do you participate in: walking Duration: > 90 minutes/day Frequency: 5-6 times per week Kylie/Mandaeism: Mu-Ism Special kylie needs: Yes Seatbelt use: always Helmet use: Yes Drive intox or ride w/intox auto crane driver: No Working smoke detector in home: Yes Fire extinguisher in home: Yes Carbon monox detector in home: Yes Do you feel safe at home: Yes Do you feel safe in your relationship?: Yes Female Reproductive History Menstrual Age of Menarche: 14 control method: none History History 1 Para 0 Hx # Term Pregnancies Multiple births Hx # Pregnancies Ectopic pregnancies AB induced 1 Hx Number of Living Children AB spontaneous
[2023-11-19] MEDS: Normal Saline 1,000 ML 1000 ML IV (15:45)
[2023-11-19] MEDS: Ketorolac 15 MG/ML VIAL IVP (15:47)
[2023-11-19 15:59] LABS: Abs Immature Grans 0.02 10^3/uL (0.0-0.06); Absolute Basophil Count 0.06 10^3/uL (0.0-0.2); Absolute Lymphocyte Count 1.21 10^3/uL (1.2-3.4); Absolute Monocyte Count 0.45 10^3/uL (0.1-0.8); Absolute Neutrophil Count 2.87 10^3/uL (1.2-6.7); Basophils % 1.2 %; Eosinophils % 4.2 %; HCT 39.8 % (36.0-46.0); HGB 13.3 g/dL (11.2-15.7); Immature Grans % 0.4 %; Lymphocytes % 25.2 %; MCH 30.9 pg (27.0-33.0); MCHC 33.4 % (32.0-36.0); MCV 93 fL (80-95); Monocytes % 9.4 %; Neutrophils % 59.6 %; Platelet Count 171 10^3/uL (130-400); RDW 12.8 % (11.7-14.6); RDW-SD 43.1 fL; WBC 4.81 10^3/uL (4.4-10.8)
[2023-11-19 16:11] LABS: ALT 27 U/L (14-59); AST 17 U/L (15-37); Albumin 3.9 g/dL (3.4-5.0); Alkaline Phosphatase 80 U/L (46-116); Anion Gap 7.9 mmol/L (3-11); BUN 21 mg/dL (7-18); Bilirubin, Total 0.5 mg/dL (0.2-1.0); CO2 28.1 mmol/L (21.0-32.0); CREATININE 0.8 mg/dL (0.55-1.02); Calcium 8.8 mg/dL (8.5-10.1); Chloride 105 mmol/L (98-107); Estimated GFR 83.26 (mL/min/1.73m2); Glucose 93 mg/dL (74-106); Lipase 36 U/L (16-77); Magnesium 2.1 mg/dL (1.8-2.4); Potassium 3.9 mmol/L (3.5-5.1); Sodium 141 mmol/L (136-145); Total Protein 7.3 g/dL (6.4-8.2)
[2023-11-19] MEDS: Normal Saline Flush 10 ML SYR IVP (16:32)
[2023-11-19] MEDS: Omnipaque 350 MG/ML 100 ML BTL IJ (16:34)
[2023-11-19] MEDS: Normal Saline - Diluent 50 ML VIAL IJ (16:35)
[2023-11-19] MEDS: ACETAMINOPHEN 1,000 MG/100 ML BTL 400 MG IVPB (17:48)
[2023-11-19 18:26] VITALS: BP 154/95; PULSE 60; O2SAT 99
[2023-11-19 18:30] LABS: Bilirubin Negative (Negative); Blood Trace-intact (Negative); Clarity Clear (Clear); Glucose Negative (Negative); Ketones Negative (Negative); Leukocyte Esterase Negative (Negative); Nitrite Negative (Negative); Specific Gravity 1.015 (1.005-1.025); Urobilinogen 0.2 mg/dL (Up to 0.2)
[2023-11-19] MEDS: Cyclobenzaprine 10 MG TAB, 3 TABS/BTL PO (18:35)
[2023-11-19] MEDS: Lidocaine 5% Patch 1 PATCH TP (18:35)
[2023-11-19 18:45] LABS: Bacteria Rare HPF (Negative); C & S Indicated? No; Casts 0-2 Hyaline LPF (Negative); Crystals Negative HPF (Negative); Epithelial Cells Few HPF (Negative); Mucus Negative (Negative); RBC 0-2 HPF (0-2)
== END 2023-11-19 18:44 | disposition home or self-care (01) ==
PROVIDERS: Emergency Provider Emergency Medicine; PCP Nurse Practitioner Adult Health
DX: M54.50 Low back pain, unspecified (principal); R10.32 Left lower quadrant pain; E03.9 Hypothyroidism, unspecified; Z90.49 Acquired absence of other specified parts of digestive tract; Z87.891 Personal history of nicotine dependence
CPT/HCPCS: 80053; 83690; 96361; 96365; 96375; 99285; 74177; 81003; 81015; 83735; 85025; 99284; J0131; J1885; J3490

== ENCOUNTER 2024-03-05 15:27 | Emergency (ER) | payer OTHER, SELFPAY ==
[2024-03-05 15:30] VITALS: BP 172/87; PULSE 66; RESP 16; TEMP 36.4; O2SAT 97
--- OUTSIDE RECORDS SUMMARY | 2024-03-05 15:38 | XMS_ITS | Clinical Summary ---
Author Organization [facility] Address [facility] [address] [place] [address] Care Team Providers Care Brake Coupler Dinkey Name Role Phone TishaRebecca FADUMO Primary Care Provider [phone] Allergies No known active allergies Medications Medication Sig Dispensed Refills Start Date End Date Status levothyroxine (SYNTHROID) 175 mcg Tablet 08/15/2019 Active Social History Tobacco Use Types Packs/Day Years Used Date Smoking Tobacco: Never Smokeless Tobacco: Never Sex and Gender Information Value Date Recorded Sex Assigned at Not on file Gender Identity Not on file Sexual Orientation Not on file Last Filed Vital Signs Vital Sign Reading Time Taken Comments Blood Pressure 137/87 01/13/2020 2:59 PM EDT Pulse 68 01/13/2020 2:59 PM EDT Temperature - - Respiratory Rate - - Oxygen Saturation - - Inhaled Oxygen Concentration - - Weight 108.9 kg (240 lb) 01/13/2020 2:59 PM EDT Height 165.1 cm (5' 5) 01/13/2020 2:59 PM EDT Body Mass Index 39.94 01/13/2020 2:59 PM EDT Plan of Treatment Health Maintenance Due Date Last Done Comments CT Colonography 1961 Colonoscopy 1961 Colorectal Cancer Screening 1961 FIT DNA 1961 FIT 1961 Sigmoidoscopy (10 year) with FIT yearly 1961 Sigmoidoscopy 1961 HIV screen 11/15/1979 Hepatitis C Screening 11/15/1979 Tdap adult 1980 Tetanus vaccine 1980 HPV test 11/15/1991 PAP Smear 11/15/1991 Breast Cancer Share Decision Needed 2001 Breast Cancer screening 2001 Zoster vaccine (1 of 2) 11/15/2011 Advance Directive 2016 Covid-19 Vaccine ( season) 2024 Influenza (Flu) vaccine (1 o f 1 - Influenza standard series) 02/28/2024 Care Teams Brake Coupler Dinkey Relationship Specialty Start Date End Date Rebecca Giles APRN [address] [place] [address] PCP - General Geriatric Medicine 07/12/19
--- OUTSIDE RECORDS SUMMARY | 2024-03-05 15:38 | XMS_ITS | Encounter Summary ---
Author Organization [facility] [place] [address] Care Team Providers Care Manhole Builder Name Role Phone Rebecca Giles APRN Primary Care Provider Encounter Details Date Type Department Care Team (Late st Contact Info) Description 05/30/2020 Ancillary Procedure Radiology Library [place] [address] Rebecca Giles APRN [address] [place] [address] Social History Tobacco Use Types Packs/Day Years Used Date Smoking Tobacco: Never Smokeless Tobacco: Never Sex and Gender Information Value Date Recorded Sex Assigned at Not on file Gender Identity Not on file Sexual Orientation Not on file documented as of this encounter Plan of Treatment Not on file documented as of this encounter Procedures Procedure Name Priority Date/Time Associated Diagnosis Comments FILM LIBRARY STORAGE ONLY MAMMO Routine 05/30/2020 12:00 AM EST documented in this encounter Results * Film Library- Storage Only Mammo (05/30/2020 12:00 AM EST) Narrative AYALA - 06/10/2020 10:04 AM EST This exam is auto-finalizing. It's purpose is for storage only. Rebecca Giles APRN IMG FILM LIBRARY OR DERABLES [facility] [place] documented in this encounter Visit Diagnoses Not on filedocumented in this encounter Care Teams Manhole Builder Relationship Specialty Start Date End Date Rebecca Giles APRN [address] [place] [address] PCP - General Geriatric Medicine 07/12/19 documented as of this encounter
--- OUTSIDE RECORDS SUMMARY | 2024-03-05 15:38 | XMS_ITS | Encounter Summary ---
Author Organization [facility] [place] [address] Care Team Providers Care Sausage Tier Name Role Phone Rebecca Giles APRN Primary Care Provider [phone] Encounter Details Date Type Department Care Team (Late st Contact Info) Description 06/08/2020 Telephone Hematology and Oncology at [facility] [place] [address] Ella Maza Social History Tobacco Use Types Packs/Day Years Used Date Smoking Tobacco: Never Smokeless Tobacco: Never Sex and Gender Information Value Date Recorded Sex Assigned at Not on file Gender Identity Not on file Sexual Orientation Not on file documented as of this encounter Miscellaneous Notes * Telephone Encounter - Ella Maza - 06/08/2020 3:27 PM EST Kandy Durán 1960 [id number] Referring provider: Rebecca Giles NP Date of Referral: 06.08.2020 Please review outside breast imaging dated: 05.30.2020 Reason for exam and clinical history: Asymmetric density left breast Category: 3 Questions to be answered: ? More imaging Sending Institution: [facility] Patient would like treatment at: [facility] Call pt at: documented in this encounter Plan of Treatment Not on file documented as of this encounter Visit Diagnoses Not on filedocumented in this encounter Care Teams Sausage Tier Relationship Specialty Start Date End Date Rebecca Giles APRN [address] [place] [address] PCP - General Geriatric Medicine 07/12/19 documented as of this encounter
--- OUTSIDE RECORDS SUMMARY | 2024-03-05 15:38 | XMS_ITS | Encounter Summary ---
Author Organization [facility] [place] [address] Care Team Providers Care Speed Operator Name Role Phone Rebecca Giles APRN Primary Care Provider Encounter Details Date Type Department Care Team (Late st Contact Info) Description 03/19/2020 Telephone Vascular Surgery at [facility] [place] [address] Eladia Stout Social History Tobacco Use Types Packs/Day Years Used Date Smoking Tobacco: Never Smokeless Tobacco: Never Sex and Gender Information Value Date Recorded Sex Assigned at Not on file Gender Identity Not on file Sexual Orientation Not on file documented as of this encounter Miscellaneous Notes * Telephone Encounter - Eladia Stout - 03/19/2020 8:57 AM EDT Received call back from Kandy. At this time she is not ready to schedule Surgery. She will contact us once she's ready to move forward with procedure. documented in this encounter Plan of Treatment Not on file documented as of this encounter Visit Diagnoses Not on filedocumented in this encounter Care Teams Speed Operator Relationship Specialty Start Date End Date Rebecca Giles [place] [address] PCP - General Geriatric Medicine 07/12/19 documented as of this encounter
--- OUTSIDE RECORDS SUMMARY | 2024-03-05 15:38 | XMS_ITS | Encounter Summary ---
Author Organization [facility] [place] [address] Care Team Providers Care Curator Medical Museum Name Role Phone Shahid Gilesssica FADUMO Primary Care Provider [phone] Reason for Referral * Surgical (Routine) - Closed Specialty Diagnoses / Procedures Referred By Jarrod cronin Referred To Contact Gastroenterology Diagnoses Screening for colon cancer screening Procedures colonoscopy Darlene Stephens, JUVENILE DETENTION OFFICER [address] [place] [address] [facility] [place] [address] Referral ID Status Reason Start Date Expiration Date V isits Requested Visits Authorized [id number] Closed Test Only 09/01/2021 09/01/2022 6 6 Encounter Details Date Type Department Care Team (Latest Contact Info) Description 09/01/2021 [place] [phone] Darlene Stephens JUVENILE DETENTION OFFICER [address] [facility] [place] [id number] Screening for colon cancer Social History Tobacco Use Types Packs/Day Years Used Date Smoking Tobacco: Never Smokeless Tobacco: Never Sex and Gender Information Value Date Recorded Sex Assigned at Not on file Gender Identity Not on file Sexual Orientation Not on file documented as of this encounter Plan of Treatment Scheduled Referrals Name Type Priority Associated Diagnoses Order Schedule REFERRAL TO COLONOSCOPY PROCEDURE Outpatient Referral Routine Screening for colon cancer Ordered: 09/01/2021 documented as of this encounter Visit Diagnoses Diagnosis Screening for colon cancer Special screening for malignant neoplasms, colon documented in this encounter Care Teams Curator Medical Museum Relationship Specialty Start Date End Date Rebecca Giles APRN [address] [place] [address] PCP - General Geriatric Medicine 07/12/19 documented as of this encounter
--- OUTSIDE RECORDS SUMMARY | 2024-03-05 15:38 | XMS_ITS | Encounter Summary ---
Author Organization [facility] [place] [address] Care Team Providers Care Chief Of Police Name Role Phone Unavailable Primary Care Provider Unavailabl e Encounter Details Date Type Department Care Team (Late st Contact Info) Description 08/07/2011 12:05 AM EST Ancillary Procedure Radiology Library at [facility] [place] [address] Rebecca Giles APRN [address] [place] [address] Social History Tobacco Use Types Packs/Day Years Used Date Smoking Tobacco: Never Assessed Sex and Gender Information Value Date Recorded Sex Assigned at Not on file Gender Identity Not on file Sexual Orientation Not on file documented as of this encounter Plan of Treatment Not on file documented as of this encounter Procedures Procedure Name Priority Date/Time Associated Diagnosis Comments FILM LIBRARY-STORAGE ONLY US BREAST Routine 08/07/2011 12:05 AM EST documented in this encounter Results * Film Library Storage Only US Breast (08/07/2011 12:05 AM EST) Narrative RAD - 06/11/2020 2:08 PM EST This exam is auto-finalizing. It's purpose is for storage only. Rebecca Giles APRN IMG FILM LIBRARY OR DERABLES [facility] [place] documented in this encounter Visit Diagnoses Not on filedocumented in this encounter
--- OUTSIDE RECORDS SUMMARY | 2024-03-05 15:38 | XMS_ITS | Encounter Summary ---
Author Organization [facility] [place] [address] Care Team Providers Care Forestry Aid Name Role Phone Rebecca Giles APRN Primary Care Provider [phone] Encounter Details Date Type Department Care Team (Late st Contact Info) Description 01/16/2020 Orders Only Vascular Surgery at [facility] [place] [address] Chrissie Moreno, RN Social History Tobacco Use Types Packs/Day Years [...] on filedocumented in this encounter Care Teams Forestry Aid Relationship Specialty Start Date End Date Rebecca Giles APRN [address] [place] [address] PCP - General Geriatric Medicine 07/12/19 documented as of this encounter
--- OUTSIDE RECORDS SUMMARY | 2024-03-05 15:38 | XMS_ITS | Encounter Summary ---
Author Organization [facility] [place] [address] Care Team Providers Care Dental Technologist Name Role Phone TishaShahidRebecca FADUMO Primary Care Provider [phone] Encounter Details Date Type Department Care Team (Late st Contact Info) Description 09/10/2021 Telephone Gastroenterology at [facility] [place] [address] Winnie Zurita Social History Tobacco Use Types Packs/Day Years Used Date Smoking Tobacco: Never Smokeless Tobacco: Never Sex and Gender Information Value Date Recorded Sex Assigned at Not on file Gender Identity Not on file Sexual Orientation Not on file documented as of this encounter Miscellaneous Notes * Telephone Encounter - Winnie Zurita - 09/10/2021 2:24 PM EDT Kandy Durán [id number] Diagnosis/Indication: screening colo 1. Have you ever had a/an Colonoscopy before? Yes: Date 5 years ago at [facility] If yes, did you have any problems with the procedure? No What type of sedation was used: None 2. Do you take any blood thinners or have you been diagnosed with a bleeding disorder that increases your risk of bleeding with procedures? No 3. Do you have a Pacemaker or Defibrillator device? No 4. Are you a diabetic? No 5. Do you have any Allergies to Eggs, Latex or Medications? No 6. Do you take any Oral Iron Supplements (Including multi-vitamins)? Yes (Multivitamin) 7. Do you have a history of three or more abdominal surgeries? No 8. Have you had a problem with sedation or anesthesia? No 9. Do you use a c-pap machine or oxygen tank? Neither 10. Do you take prescription narcotic pain medications, including suboxone or methodone? No 11. Do you have a preference regarding the gender of your provider? Yes: Female 12. Is there any other information you would like to us to note for the provider and nursing team who will perform your case? No 13. Say to patient: You must have a responsible democrat who will drive you to your procedure, stay oncampus for the entire duration of your procedure, and drive you home from your procedure? *Please Verify the height and weight, and adjust if height and/or weight have changed* Estimated body mass index is 39.94 kg/m?? as calculated from the following: Height as of 01/13/20: 165.1 cm (5' 5). Weight as of 01/13/20: 108.9 kg (240 lb). Age:60 y.o. documented in this encounter Plan of Treatment Not on file documented as of this encounter Visit Diagnoses Not on filedocumented in this encounter Care Teams Dental Technologist Relationship Specialty Start Date End Date Rebecca Giles APRN [address] [place] [address] PCP - General Geriatric Medicine 07/12/19 documented as of this encounter
--- OUTSIDE RECORDS SUMMARY | 2024-03-05 15:38 | XMS_ITS | Encounter Summary ---
Author Organization [facility] [place] [address] Care Team Providers Care Inspector Machine Parts Name Role Phone Unavailable Primary Care Provider Unavailabl e Encounter Details Date Type Department Care Team (Late st Contact Info) Description 09/30/2014 Ancillary Procedure Radiology Library at [facility] [place] [address] Rebecca Giles APRN [address] [place] [address] Social History Tobacco Use Types Packs/Day Years [...] Comments FILM LIBRARY STORAGE ONLY MAMMO Routine 09/30/2014 12:00 AM EDT documented in this encounter Results * Film Library- Storage Only Mammo (09/30/2014 12:00 AM EDT) Narrative [facility] - 06/11/2020 1:28 PM EST This exam is auto-finalizing. It's purpose is for storage only. Rebecca Giles APRN IMG FILM LIBRARY OR DERABLES [place], [place] documented in this encounter Visit Diagnoses Not on filedocumented in this encounter
--- OUTSIDE RECORDS SUMMARY | 2024-03-05 15:38 | XMS_ITS | Encounter Summary ---
Author Organization [facility] [place] [address] Care Team Providers Care Advertising Project Manager Name Role Phone Unavailable Primary Care Provider Unavailabl e Encounter Details Date Type Department Care Team (Late st Contact Info) Description 01/01/2016 Ancillary Procedure Radiology Library at [facility] [place] [address] Rebecca Giles APRN [address] [place] [address] Social History Tobacco Use Types Packs/Day Years [...] Comments FILM LIBRARY STORAGE ONLY MAMMO Routine 01/01/2016 12:00 AM EDT documented in this encounter Results * Film Library- Storage Only Mammo (01/01/2016 12:00 AM EDT) Narrative [facility] - 06/11/2020 1:27 PM EST This exam is auto-finalizing. It's purpose is for storage only. Rebecca Giles APRN IMG FILM [facility] [place] documented in this encounter Visit Diagnoses Not on filedocumented in this encounter
--- OUTSIDE RECORDS SUMMARY | 2024-03-05 15:38 | XMS_ITS | Encounter Summary ---
Author Organization [facility] [place] [address] Care Team Providers Care Railway Patrol Officer Name Role Phone Unavailable Primary Care Provider Unavailabl e Encounter Details Date Type Department Care Team (Late st Contact Info) Description 03/30/2018 Ancillary Procedure Radiology Library at [facility] [place] [address] Rebecca Giles APRN [address] [place] [address] Social History Tobacco Use Types Packs/Day Years [...] Comments FILM LIBRARY STORAGE ONLY MAMMO Routine 03/30/2018 12:00 AM EDT documented in this encounter Results * Film Library- Storage Only Mammo (03/30/2018 12:00 AM EDT) Narrative [facility] - 06/10/2020 10:02 AM EST This exam is auto-finalizing. It's purpose is for storage only. Rebecca Giles APRN IMG FILM LIBRARY OR DERABLES [place], [place] documented in this encounter Visit Diagnoses Not on filedocumented in this encounter
--- OUTSIDE RECORDS SUMMARY | 2024-03-05 15:38 | XMS_ITS | Encounter Summary ---
[place] [address] Care Team Providers Care Blood Donor Recruiter Supervisor Name Role Phone TishaRebecca FADUMO Primary Care Provider [phone] Encounter Details Date Type Department Care Team (Late st Contact Info) Description 01/06/2020 12:30 PM EDT Tech [place] [id number] Stacia Khan, TRAN Varicose veins of unspecified lower extremity with pain Social History Tobacco Use Types Packs/Day Years Used Date Smoking Tobacco: Never Smokeless Tobacco: Never Sex and Gender Information Value Date Recorded Sex Assigned at Not on file Gender Identity Not on file Sexual Orientation Not on file documented as of this encounter Plan of Treatment Not on file documented as of this encounter Procedures Procedure Name Priority Date/Time Associated Diagnosis Comments VENOUS VALVULAR INCOMP, BILAT LEGS Routine 01/06/2020 12:31 PM EDT Varicose veins of unspecified lower extremity with pain documented in this encounter Results * Venous Valvular Incomp, Bilat Legs (01/06/2020 12:31 PM EDT) VB Text Report Department: Vascular Surgery Lab Patient: [id number] (KANDY SEYMOUR) CPT: 96598 ICD10: I83.819;I87.2 Referring Physician: YARITZA LITTLE ?? Indications: Bilateral painful varicose veins Patient Positioning: ??Reverse Trendelenburg ICD10 Diagnosis Code: I83.819 Findings: Right ?Reflux?Diameter (mm) ??Depth (mm) ?? Common Femoral Vein ??Reflux ? Femoral Vein ? Competent ? Popliteal ?Competent ? GSV, Near SFJ ?Reflux ?10.6 ?26.1 ?? GSV, Proximal Thigh ??Competent ?4.3 ?24.8 ?? GSV, Mid Thigh ? Competent ?3.3 ?22.6 ?? GSV, Distal Thigh ?Competent ?2.3 ?23.5 ?? GSV, ??Knee ? Competent ?2.7 ?24.8 ?? GSV Prox Calf ?Reflux ?14.7 ?12.5 ?? GSV, Mid Calf ?Reflux ? GSV, Distal Calf ? Competent ? SSV ?Reflux ? Left ? Reflux?Diameter (mm) ??Depth (mm) ?? Common Femoral Vein ??Reflux ? Femoral Vein ? Competent ? Popliteal ?Competent ? GSV, Near SFJ ?Reflux ?12.0 ?23.5 ?? GSV, Proximal Thigh ??Competent ?3.0 ?22.8 ?? GSV, Mid Thigh ? Reflux ? 9.3 ?19.9 ?? GSV, Distal Thigh ?Reflux ? 4.5 ?25.9 ?? GSV, ??Knee ? Reflux ? 2.8 ?28.3 ?? GSV Prox Calf ?Reflux ? 1.2 ?19.1 ?? GSV, Mid Calf ?Competent ? GSV, Distal Calf ? Competent ? SSV ?Competent ? Interpretation: RIGHT: Superficial venous valvular incompetence (reflux > 1 second) identified in the lesser saphenous vein for a segment near mid calf and in the great saphenous vein (GSV) at the saphenofemoral junction and for a segment from just below the knee to near/just below mid calf where the GSV becomes varicose and superficial to the fascia. There is a large 1.2cm, varicose anterior saphenous vein (joins GSV near the saphenofemoral junction) that courses along the anterior knee and calf and communicates with the GSV just below the knee where the GSV is varicose. Deep venous valvular incompetence (reflux > 1.5 seconds) identified in the common femoral vein only. No evidence of deep (femoral-popliteal ) or superficial venous thrombosis. LEFT: Superficial venous valvular incompetence (reflux > 1 second) identified in the GSV at the saphenofemoral junction and from mid thigh to proximal calf. The anterior saphenous vein is incompetent and exits the fascia in the distal thigh where it becomes varicose and courses along the anterior knee and lateral calf. This varicosity also communicates with the GSV near the knee and near mid thigh. Deep venous valvular incompetence (reflux > 1.5 seconds) identified in the common femoral vein only. No evidence of deep (femoral-popliteal ) or superficial venous thrombosis. Comparison: ??No previous study in our vascular lab database for comparison. Electronically Signed by: LISBETH FLEMING MD on 2020-01-07 06:57:08 AM [facility] VB Text Report End of Report [facility] 01/06/2020 12:3 1 PM EDT Yaritza Little APRN VASCULAR ORDERABLE S [facility] documented in this encounter Visit Diagnoses Diagnosis Varicose veins of unspecified lower extremity with pain documented in this encounter Care Teams Blood Donor Recruiter Supervisor Relationship Specialty Start Date End Date Rebecca Giles APRN [address] [place] [address] PCP - General Geriatric Medicine 07/12/19 documented as of this encounter
--- OUTSIDE RECORDS SUMMARY | 2024-03-05 15:38 | XMS_ITS | Encounter Summary ---
Author Organization [facility] [place] [address] Care Team Providers Care Mortgage Protection Sales Name Role Phone Rebecca Giles APRN Primary Care Provider Encounter Details Date Type Department Care Team (Late st Contact Info) Description 06/11/2020 2:35 PM EST Ancillary Procedure Radiology [place] [address] Rebecca Giles APRN [address] [place] [id number] Breast density Social History Tobacco Use Types Packs/Day Years Used Date Smoking Tobacco: Never Smokeless Tobacco: Never Sex and Gender Information Value Date Recorded Sex Assigned at Not on file Gender Identity Not on file Sexual Orientation Not on file documented as of this encounter Plan of Treatment Not on file documented as of this encounter Procedures Procedure Name Priority Date/Time Associated Diagnosis Comments REQUEST FOR 2ND READ MAMMO Routine 06/11/2020 2:31 PM EST Breast density documented in this encounter Results * Request for 2nd read Mammo (06/11/2020 2:31 PM EST) Anatomical Region Laterality Modality SO Impressions 06/11/2020 3:28 PM EST No mammographic evidence of malignancy. The previously identified asymmetry in the left breast does not persist on the spot compression view. BI-RADS Category 1: Negative RECOMMENDATION: Annual screening for breast cancer. * ??Regular screening mammograms starting between age 40 and 50 reduces the risk of from breast cancer. * ??All screening tests have both risks and benefits. These risks and benefits should be assessed for each individual patient through discussion with their provider to determine their preferred breast cancer screening schedule. * ??Women should report any breast changes to a health care provider right away. * ??Some women, because of their family history, a genetic tendency, or other factors, should be screened with annual breast MRI as well as with mammograms. (The number of women who fall into this category is very small). Patients and health care providers should discuss the history of each patient to decide if earlier screening and/or breast MRI are appropriate. * ??Screening should continue as long as a woman is in good health and is expected to live 10 years or longer. * ??Screening mammography may not detect 10-15% of breast cancers. Please note: The interpretation of the [facility] Breast Imaging Radiologist subspecialist may differ from the original radiologists interpretation. This is usually not due to a deficiency of the original interpreting radiologist, rather due to the greater skill level afforded by sub-specialization in the field and/or reasonable variations in interpretations. If you have a concern regarding the D-H interpretation you may contact the D Breast Shade Classifier Office at . I have personally reviewed the image(s) and the resident's interpretation and agree with the findings, Tori Pringle MD at 06/11/2020 3:28 PM Thank you for letting us participate in the care of this patient. For questions regarding this report, please contact the number below. ? Narrative 06/11/2020 3:28 PM EST INTERPRETATION OF OUTSIDE BREAST IMAGING I have been asked to consult on this patient by Rebecca Giles NP because she believes a review of this study may change or alter the care of this patient. STUDIES FROM: [facility] DATES: Spot compression view from 05/30/2020. TYPE OF EXAM: Outside prior mammogram CLINICAL HISTORY: Asymmetric density left breathlCAT 3, Pt would like treatment at [facility]; ? More imaging; What Modality is the exam? Mammography; Body Part (please add comments as necessary): Breast; Sending Institution [facility]; Date of exam [id number]; I believe a reinterpretation of this exam may alter care of Patient. Yes. ?? COMPARISONS: Multiple prior mammograms. TECHNIQUE: Reinterpretation of outside spot compression MLO view with Tomosynthesis of the left breast area of concern. FINDINGS: There are scattered areas of fibroglandular density. On the screening mammogram from 05/25/2020 there is a left breast asymmetry seen on the MLO view in the deep central breast approximately 7.5 cm from the nipple. This asymmetry does not persist on the spot compression view from 12 0-20. No mass, architectural distortion or suspicious microcalcifications. Procedure Note Tori Pringle MD - 06/11/2020 INTERPRETATION OF OUTSIDE BREAST IMAGING I have been asked to consult on this patient by Rebecca Giles NPbecause she believes a review of this study may change or alter the care of thispatient. STUDIES FROM: [facility] DATES: Spot compression view from 05/30/2020. TYPE OF EXAM: Outside prior mammogram CLINICAL HISTORY: Asymmetric density left breathlCAT 3, Pt would liketreatment at [facility]; ? More imaging; What Modality is the exam? Mammography; BodyPart (please add comments as necessary): [facility] of exam [id number]; I believe a reinterpretation of thisexam may alter care of Patient. Yes. COMPARISONS: Multiple prior mammograms. TECHNIQUE: Reinterpretation of outside spot compression MLO view with Tomosynthesis of the left breast area of concern. FINDINGS: There are scattered areas of fibroglandular density. On the screening mammogram from 05/25/2020 there is a left breastasymmetry seen on the MLO view in the deep central breast approximately 7.5 cm from thenipple. This asymmetry does not persist on the spot compression view from 120-20. No mass, architectural distortion or suspicious microcalcifications. IMPRESSION No mammographic evidence of malignancy. The previously identifiedasymmetry in the left breast does not persist on the spot compression view. BI-RADS Category 1: Negative RECOMMENDATION: Annual screening for breast cancer. * Regular screening mammograms starting between age 40 and 50 reduces therisk of from breast cancer. * All screening tests have both risks and benefits. These risks andbenefits should be assessed for each individual patient through discussion withtheir provider to determine their preferred breast cancer screening schedule. * Women should report any breast changes to a health care provider rightaway. * Some women, because of their family history, a genetic tendency, orother factors, should be screened with annual breast MRI as well as withmammograms. (The number of women who fall into this category is very small). Patientsand health care providers should discuss the history of each patient to decideif earlier screening and/or breast MRI are appropriate. * Screening should continue as long as a woman is in good health and is expected to live 10 years or longer. * Screening mammography may not detect 10-15% of breast cancers. Please note: The interpretation of the [facility] BreastImaging Radiologist subspecialist may differ from the original radiologists interpretation. This is usually not due to a deficiency of the original interpreting radiologist, rather due to the greater skill level affordedby sub-specialization in the field and/or reasonable variations ininterpretations. If you have a concern regarding the D-H interpretation you may [facility] at . I have personally reviewed the image(s) and the resident's interpretationand agree with the findings, Tori Pringle MD at 06/11/2020 3:28 PM Thank you for letting us participate in the care of this patient. Forquestions regarding this report, please contact the number below. Rebecca Giles APRN IMG OUTSIDE INTERPR ETATION ORDERABLES documented in this encounter Visit Diagnoses Diagnosis Breast density Other sign and symptom in breast documented in this encounter Care Teams Mortgage Protection Sales Relationship Specialty Start Date End Date Rebecca Giles APRN [address] [place] [address] PCP - General Geriatric Medicine 07/12/19 documented as of this encounter
--- OUTSIDE RECORDS SUMMARY | 2024-03-05 15:38 | XMS_ITS | Encounter Summary ---
Author Organization [facility] [place] [address] Care Team Providers Care Intake Clerk Name Role Phone Rebecca Giles APRN Primary Care Provider [phone] Encounter Details Date Type Department Care Team (Late st Contact Info) Description 05/25/2020 Ancillary Procedure Radiology [facility] at [facility] [place] [address] Rebecca Giles APRN [address] [place] [address] Social History Tobacco Use Types Packs/Day Years [...] Comments FILM LIBRARY STORAGE ONLY MAMMO Routine 05/25/2020 12:00 AM EST documented in this encounter Results * Film Library- Storage Only Mammo (05/25/2020 12:00 AM EST) Narrative [facility] - 06/10/2020 10:01 AM EST This exam is auto-finalizing. It's purpose is for storage only. Rebecca Giles APRN IMG FILM LIBRARY OR DERABLES [facility] [place], [place] documented in this encounter Visit Diagnoses Not on filedocumented in this encounter Care Teams Intake Clerk Relationship Specialty Start Date End Date Rebecca Giles APRN [address] [place] [address] PCP - General Geriatric Medicine 07/12/19 documented as of this encounter
--- OUTSIDE RECORDS SUMMARY | 2024-03-05 15:38 | XMS_ITS | Encounter Summary ---
Author Organization [facility] Address [facility] [place] [address] Care Team Providers Care Separator Operator Shellfish Meats Name Role Phone Rebecca Giles APRN Primary Care Provider [phone] Reason for Visit * Consultation (Routine) - Closed Specialty Diagnoses / Procedures Referred By Jarrod t Referred To Contact Vascular Surgery Diagnoses Varicose veins of bilateral lower extremities with other complications B/L LE VARICOSE VEINS, TRIALED AND FAILED RX THIGH-HIGH COMPRESSION, SOMETIMES WEARS NYLONS Rebecca Giles APRN [address] [place] [address] [facility] [place] [facility] [address] [place] [address] Referral ID Status Reason Start Date Expiration Date V isits Requested Visits Authorized [id number] Closed Consult, Test & [facility] Connection [facility] PCP Updated and/or Approved 07/12/2019 07/11/2020 1 1 Encounter Details Date Type Department Care Team (Late st Contact Info) Description 08/23/2019 1:00 PM EST Office [place] [address] Yaritza Little APRN [facility] [place] [address] Varicose veins of unspecified lower extremity with pain Social History Tobacco Use Types Packs/Day Years Used Date Smoking Tobacco: Never Smokeless Tobacco: Never Sex and Gender Information Value Date Recorded Sex Assigned at Not on file Gender Identity Not on file Sexual Orientation Not on file documented as of this encounter Last Filed Vital Signs Vital Sign Reading Time Taken Comments Blood Pressure 126/75 08/23/2019 12:58 PM EST Pulse 64 08/23/2019 12:58 PM EST Temperature - - Respiratory Rate - - Oxygen Saturation - - Inhaled Oxygen Concentration - - Weight 113.4 kg (250 lb) 08/23/2019 12:58 PM EST reported Height 165.1 cm (5' 5) 08/23/2019 12:58 PM EST reported Body Mass Index 41.6 08/23/2019 12:58 PM EST documented in this encounter Progress Notes * Yaritza Little APRN - 08/23/2019 1:00 PM EST Consult requested by Rebecca Giles APRN for evaluation of painful varicose veins. History: This is a 58 y.o. female who has noted painful varicose veins for over a year. The varicose veins have been present for many years but they became painful about a year ago. She states her lower legs ache and throb at end of day. They are both symptomatic but the right is worse than left. 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 She does have compression garments but struggles to don them. She does elevate and notes some relief with that. She states these symptoms are starting to affect quality of life. Y N SYMPTOM X Leg aching X Leg swelling X Leg elevation greater than 20 minutes/3x per day X Daily use of compression stockings 20-30mmHg (6-8 weeks) X Family history of varicose veins X History of more than two episodes of phlebitis X Refractory edema X Stasis dermatitis X History of DVT X Prior venous surgery X Prior ulceration X Current ulceration X History of two more episodes of bleeding varicosities X Chronic cellulitis PMH: hypothyrodism morbid obesity Diverticulitis No Known Allergies Current Outpatient Medications on File Prior to Visit Medication Sig Dispense Refill ??? celecoxib (CeleBREX) 100 mg Capsule ??? levothyroxine (SYNTHROID) 175 mcg Tablet No current facility-administered medications on file prior to visit. Social History Socioeconomic History ??? Marital status: Spouse name: Not on file ??? Number of children: Not on file ??? Years of education: Not on file ??? Highest education level: Not on file Occupational History ??? Not on file Social Needs ??? Financial resource strain: Not on file ??? Food insecurity Worry: Not on file Inability: Not on file ??? Transportation needs Medical: Not on file Non-medical: Not on file Tobacco Use ??? Smoking status: Never Smoker ??? Smokeless tobacco: Never Used Substance and Sexual Activity ??? Alcohol use: Not on file ??? Drug use: Not on file ??? Sexual activity: Not on file Lifestyle ??? Physical activity Days per week: Not on file Minutes per session: Not on file ??? Stress: Not on file Relationships ??? Social connections Talks on phone: Not on file Gets together: Not on file Attends adventism service: Not on file Active member of club or organization: Not on file Attends meetings of clubs or organizations: Not on file Relationship status: Not on file ??? Intimate partner violence Fear of current or ex partner: Not on file Emotionally abused: Not on file Physically abused: Not on file Forced sexual activity: Not on file Other Topics Concern ??? Not on file Social History Narrative ??? Not on file Review of Systems: Prior cardiac history: no Prior pulmonary history: no Prior issues with general anesthesia: no Family history of malignant hyperthermia: no Issues with snoring or sleep apnea: unsure PE: Most Recent Vitals: 08/23/19 1258 BP: 126/75 Pulse: 64 PainSc: 0 - No pain Body mass index is 41.6 kg/m??. Heart: RRR, no murmurs, no S3 or S4 Chest: CTA, no wheeze Location of the varicosities: RLE mid medial thigh crosses front of knee and extends down calf, spider veins to anterior and lateral calf. LLE medial thigh crossing above knee, lateral calf, scattered spider veins. Carotid pulses equal and bilateral No palpable pulsatile abdominal masses, no abdominal bruits Palpable bilateral femoral, popliteal and tibial pulses Y N PHYSICAL FINDINGS X Radial pulses bilaterally X DP and PT pulses bilaterally X Palp cords X Evidence of healed ulceration X Stasis dermatitis X Cellulitis X Palpable Thrills Assessment/Plan: 58 year old female with painful bilateral varicose veins, right is worse than left. I reviewed the physiology of varicose veins with her. Reviewed role of compression and elevation in symptom management. She has compression panty hose but is having difficulty donning them. She has no personal or family history of blood clot. She is not diabetic, no CAD, no HTN or HLD. Next step will be Venous Valve Incomp study and f/u with surgeon. They are in agreement with plan of care. documented in this encounter Plan of Treatment Not on file documented as of this encounter Results * Venous Valvular Incomp, Bilat Legs (01/06/2020 12:31 PM EDT) VB Text Report Department: Vascular Surgery Lab Patient: [id number] (SHAYNA SEYMOUR) CPT: 76168 ICD10: I83.819;I87.2 Referring Physician: YARITZA LITTLE ?? [...] pain documented in this encounter Care Teams Separator Operator Shellfish Meats Relationship Specialty Start Date End Date Rebecca Giles APRN [address] [place] [address] PCP - General Geriatric Medicine 07/12/19 documented as of this encounter
--- OUTSIDE RECORDS SUMMARY | 2024-03-05 15:38 | XMS_ITS | Encounter Summary ---
Author Organization [facility] [place] [address] Care Team Providers Care Butcher'S Assistant Name Role Phone Unavailable Primary Care Provider Unavailabl e Encounter Details Date Type Department Care Team (Late st Contact Info) Description 08/07/2011 Ancillary Procedure Radiology Library at [facility] [place] [phone] Rebecca Giles APRN [address] [place] [address] Social History Tobacco Use Types Packs/Day Years [...] Comments FILM LIBRARY STORAGE ONLY MAMMO Routine 08/07/2011 12:00 AM EST documented in this encounter Results * Film Library- Storage Only Mammo (08/07/2011 12:00 AM EST) Narrative [facility] - 06/11/2020 2:07 PM EST This exam is auto-finalizing. It's purpose is for storage only. Rebecca Giles APRN IMG FILM LIBRARY OR DERABLES [facility] [place] documented in this encounter Visit Diagnoses Not on filedocumented in this encounter
--- OUTSIDE RECORDS SUMMARY | 2024-03-05 15:38 | XMS_ITS | Encounter Summary ---
Author Organization [facility] Address [facility] [place] [address] Care Team Providers Care Property Worker Name Role Phone Rebecca Giles APRN Primary Care Provider [phone] Encounter Details Date Type Department Care Team (Late st Contact Info) Description 01/13/2020 3:15 PM EDT Office [place] [address] Jono Rodrigues MD [facility] [place] [address] Varicose veins of lower extremity, unspecified laterality, unspecified whether complicated Social History Tobacco Use Types Packs/Day Years [...] Mass Index 39.94 01/13/2020 2:59 PM EDT documented in this encounter Progress Notes * Jono Rodrigues MD - 01/13/2020 3:15 PM EDT This patient returned to the vascular clinic today for a follow up visit for extensive bilateral lower extremity varicose veins. These have bothered the patient for many years. She has tried wearing compression stockings but is unable to use them because of difficulty with getting them on. 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 She underwent a venous reflux study and is here to discuss those results as well as any potential interventions. PMHx: No past medical history on file. SxHx: No past surgical history on file. Social Hx: Social History Tobacco Use ??? Smoking status: Never Smoker ??? Smokeless tobacco: Never Used Substance Use Topics ??? Alcohol use: Not on file Medications: Medications 01/13/20 1500 Medication Sig Taking? levothyroxine (SYNTHROID) 175 mcg Tablet Yes Allergies: No Known Allergies Review of Systems: Constitutional (weight change, fever) - Denies Neuro (dizziness, seizures, numbness, tingling) - Denies Eyes (vision) - Denies Ears, nose, throat (hearing) - Denies Cardiovascular (CP) - Denies Respiratory (SOB) - Denies GI (abd pain, nausea, emesis, blood in stool) - Denies (hematuria, dysuria, frequency) - Denies Muscoloskeletal (extremity pain, weakness) - bilateral leg pain Skin (ulcers, rashes) - denies All other ROS negative Physical Exam: Vitals: Most Recent Vitals: 01/13/20 1459 BP: 137/87 Pulse: 68 PainSc: 7 Gen: No acute distress. HEENT: Normocephalic, atraumatic. PERR, EOMs intact bilaterally. No scleral icterus. Neck: Supple, no JVD. Heart: Regular rate and rhythm. (+) S1/S2. No snaps, clicks, rubs, or murmurs. Lungs: Regular respiratory rate with no increased work of breathing. Clear to auscultation bilaterally. Abd: Soft, nontender, not distended. Audible bowel sounds. No bruits or pulsatile mass on exam. Extremities: bilateral extensive ropelike varicosities on thighs and calves. No venous skin changesor ulcerations Vascular Exam: R L Carotid 2/2 bruit (-) 2/2 bruit (-) Radial 2/2 2/2 Femoral 2/2 2/2 Popliteal 2/2 2/2 DP 2/2 2/2 PT 2/2 2/2 Psych: AAOx3 Labs/Studies: Findings: ?? Right ?Reflux?Diameter (mm) ??Depth (mm) ?? Common [...] ? Competent ? SSV ?Competent ? Interpretation: ?? RIGHT: ?? Superficial venous valvular incompetence??(reflux > 1 second) identified in the lesser [...] the knee where the GSV is varicose. ?? Deep venous valvular incompetence (reflux > 1.5 seconds) identified in the common femoral vein only. ?? No evidence of deep (femoral-popliteal) or superficial venous thrombosis. ?? LEFT: ?? Superficial venous valvular incompetence (reflux > 1 [...] near the knee and near mid thigh. ?? Deep venous valvular incompetence (reflux > 1.5 seconds) identified in the common femoral vein only. ?? No evidence of deep (femoral-popliteal) or superficial venous thrombosis. ?? Comparison: ??No previous study in our vascular lab database for comparison. ?? Impression: On physical exam, Ms. Durán has extensive bilateral thigh and calf varicosities. Her venous reflux study demonstrates no deep reflux, mild reflux at the bilateral great saphenous vein origins, some right-sided below-knee saphenous reflux, and some left-sided mid thigh and below-knee saphenous reflux. I had a long discussion with Ms. Durán regarding the appropriate treatment strategy. Onboth sides, she would require extensive stab phlebectomies. The majority of her varicosities are onthe anterior surface of her legs, so this could all be done in supine positioning. As far as deepertreatment, I did not find anything in the right leg extensive enough to merit saphenous radiofrequen cy ablation. On the left side, she does have some mid and distal above-knee saphenous reflux that could be ablated using a radiofrequency ablation catheter. I had a more extensive discussion with regarding the etiology of her venous hypertension. She has morbid obesity which is clearly theunderlying cause for her varicose vein formation, and I explained that, while we can remove the varicosities that are bothering her at this juncture, she will certainly develop extensive varicositiesagain in the future if she cannot lose a significant amount of truncal weight. Ms. Durán would like to proceed with left-sided leg treatment, so we will get her scheduled for this at her earliest convenience. When she has fully recovered from that, we will proceed with right leg treatment. documented in this encounter Plan of Treatment Not on file documented as of this encounter Visit Diagnoses Diagnosis Varicose veins of lower extremity, unspecified laterality, unspecified whether complicated documented in this encounter Care Teams Property Worker Relationship Specialty Start Date End Date Rebecca Giles APRN [address] [place] [address] PCP - General Geriatric Medicine 07/12/19 documented as of this encounter
--- OUTSIDE RECORDS SUMMARY | 2024-03-05 15:38 | XMS_ITS | Encounter Summary ---
Author Organization [facility] [address] [place] [address] Care Team Providers Care Egg Gatherer Name Role Phone Unavailable Primary Care Provider Unavailabl e Encounter Details Date Type Department Care Team (Late st Contact Info) Description 05/22/2008 Ancillary Procedure Radiology Library at [facility] [place] [address] Rebecca Giles APRN [address] [place] [address] Social History Tobacco Use Types Packs/Day Years [...] Comments FILM LIBRARY STORAGE ONLY MAMMO Routine 05/22/2008 12:00 AM EST documented in this encounter Results * Film Library- Storage Only Mammo (05/22/2008 12:00 AM EST) Narrative [facility] - 06/11/2020 2:09 PM EST This exam is auto-finalizing. It's purpose is for storage only. Rebecca Giles APRN IMG FILM LIBRARY OR DERABLES [facility] [place] documented in this encounter Visit Diagnoses Not on filedocumented in this encounter
--- OUTSIDE RECORDS SUMMARY | 2024-03-05 15:38 | XMS_ITS | Encounter Summary ---
Author Organization [facility] [place] [address] Care Team Providers Care Buyer Assistant Name Role Phone Unavailable Primary Care Provider Unavailabl e Encounter Details Date Type Department Care Team (Late st Contact Info) Description 07/23/2011 Ancillary Procedure Radiology Library at [facility] [place] [address] Rebecca Giles APRN [address] [place] [address] Social History Tobacco Use Types Packs/Day Years [...] Comments FILM LIBRARY STORAGE ONLY MAMMO Routine 07/23/2011 12:00 AM EST documented in this encounter Results * Film Library- Storage Only Mammo (07/23/2011 12:00 AM EST) Narrative [facility] - 06/11/2020 2:08 PM EST This exam is auto-finalizing. It's purpose is for storage only. Rebecca Giles APRN IMG FILM LIBRARY OR DERABLES [facility] [place] documented in this encounter Visit Diagnoses Not on filedocumented in this encounter
--- OUTSIDE RECORDS SUMMARY | 2024-03-05 15:38 | XMS_ITS | Encounter Summary ---
Author Organization [facility] [place] [address] Care Team Providers Care Drop Wire Aliner Name Role Phone Unavailable Primary Care Provider Unavailabl e Encounter Details Date Type Department Care Team (Late st Contact Info) Description 04/07/2019 Ancillary Procedure Radiology Library at [facility] [place] [address] Rebecca Giles APRN [address] [place] [address] Social History Tobacco Use Types Packs/Day Years [...] Comments FILM LIBRARY STORAGE ONLY MAMMO Routine 04/07/2019 12:00 AM EDT documented in this encounter Results * Film Library- Storage Only Mammo (04/07/2019 12:00 AM EDT) Narrative [facility] - 06/10/2020 10:00 AM EST This exam is auto-finalizing. It's purpose is for storage only. Rebecca Giles APRN IMG FILM LIBRARY OR DERABLES [place] documented in this encounter Visit Diagnoses Not on filedocumented in this encounter
--- OUTSIDE RECORDS SUMMARY | 2024-03-05 15:39 | XMS_ITS | Encounter Summary ---
Author Organization [facility] Address [address] [place] [address] Care Team Providers Care Electrical Checkout Mechanic Name Role Phone Kristopher Mcneill MD Primary Care Provider [phone] Shelia Harrison NP Primary Care Provider [phone] Encounter Details Date Type Department Care Team (Late st Contact Info) Description 07/29/2011 Historical Results Only [facility] Lab - Main [place] [address] [place] [id number] Coretta Flowers MD [address] [place] [address], [address] [place] [address] Social History Tobacco Use Types Packs/Day Years Used Date Smoking Tobacco: Never Assessed Sex and Gender Information Value Date Recorded Sex Assigned at Not on file Gender Identity Not on file Sexual Orientation Not on file documented as of this encounter Plan of Treatment Not on file documented as of this encounter Procedures Procedure Name Priority Date/Time Associated Diagnosis Comments PAP TEST Routine 07/29/2011 documented in this encounter Results * PAP TEST (07/29/2011) 07/29/2011 07/29/2011 13: 27 EST Narrative [facility] - 07/31/2011 14:07 EST ----- ------- Name: KANDY SEYMOUR ?: [birth year] ?Age/Sex: 58/F ?Unit#: [id number] ? Loc: AGO ? Status: REG POV ?? Reg Date: 07/29/11 ? Pt.Phone Number: ? ----- ------- Specimen: [id number] ? STATUS: SOUT ?Spec Date:07/29/11 ? Physician Copies: ?Coretta Flowers MD ?? Tissues: ? Cervical/Endo Pap ?Tonya Graham CPT: 92725 ?? Units: ??1 ----- ------- ? CYTOLOGY DIAGNOSIS SPECIMEN ADEQUACY: ?Satisfactory for evaluation. Transformation zone component ABSENT. GENERAL CATEGORIZATION: ?Negative for Intraepithelial Lesion or Malignancy DESCRIPTIVE DIAGNOSIS: ? Negative for Intraepithelial Lesion or Malignancy. RECOMMENDATIONS/COMMENTS: ?None. ----- ------- ?HPV DNA RESULTS ?? 07/29/11 1018 HPV DNA RESULT ??NEG ? Negative for HPV types 16, 18, 31, 33, 35, 39, 45, 51, 52, ? 56, 58, 59, 66, 68. ? Method: Cervista HPV HR (High Risk) DNA test. ----- ------- ORDER QUERIES: LMP: ??- ? N Post ? N ??PREVIOUS ATYPICAL: N BCP/HRT? N Rad Rx? N IUD? N ??PAP PLUS HPV? Y ??REFLEX TO HR-HPV IF ASCUS ?? REFLEX TO HPV 16/18 IF HPV POS/PAP NEG ?? HPV REGARDLESS?RFLX HPV IF LSIL ?? IF ASCUS DO HPV? N Signed Sunita Neely CT(ASCP) 07/31/11 ? By the signature above, the attending physician certifies that he/she has personally conducted a gross and/or microscopic examination of the described specimens and rendered or confirmed the above diagnosis. Test Performed by [facility], [address] [place] [address] Utility Repairer: Tania Leiva MD PHD ----- ------- Coretta Flowers MD PATHOLOGY ORDERABLES [facility] documented in this encounter Visit Diagnoses Not on filedocumented in this encounter Care Teams Electrical Checkout Mechanic Relationship Specialty Start Date End Date Kristopher Mcneill MD [address] [address] [place] [address] PCP - General 09/28/12 05/24/19 Shelia Harrison NP [address] [address] [place] [address] PCP - General 05/25/19 08/09/19 documented as of this encounter
--- OUTSIDE RECORDS SUMMARY | 2024-03-05 15:39 | XMS_ITS | Encounter Summary ---
Author Organization [facility] Address [address] [place] [address] Care Team Providers Care It Project Manager Name Role Phone Kristopher Mcneill MD Primary Care Provider [phone] Encounter Details Date Type Department Care Team (Late st Contact Info) Description 12/13/2015 Historical Results Only [facility] Radiology Results [address] [place], [place] [address] Dylan Kenyon MD [address] [facility] [address] [place], [place] [address] Social History Tobacco Use Types Packs/Day Years Used Date Smoking Tobacco: Never Assessed Sex and Gender Information Value Date Recorded Sex Assigned at Not on file Gender Identity Not on file Sexual Orientation Not on file documented as of this encounter Plan of Treatment Not on file documented as of this encounter Procedures Procedure Name Priority Date/Time Associated Diagnosis Comments XR KNEE RIGHT 3 VIEWS 12/13/2015 15:22 EDT documented in this encounter Results * XR KNEE RIGHT 3 VIEWS (12/13/2015 15:22 EDT) Anatomical Region Laterality Modality Lower Extremities Right Other 12/13/2015 15:2 2 EDT Narrative 12/13/2015 15:27 EDT ? EXAM: RADIOLOGY/KNEE RT 3 VIEW ?EX. D/ (1104) ? CLINICAL INFORMATION: ? RIGHT TKR DOS: 11/12/15 XRAY DONE AT [facility] ? -[id number] ? KNEE RT 3 VIEW ? Signs and Symptoms/Comments: ??RIGHT TKR DOS: 11/12/15 XRAY DONE AT ? [facility]: -[id number] ? Comparison: 2015, 07/31/2015 ? Findings: ? Right knee: Supine AP, lateral and sunrise views were performed. ? Postsurgical changes are present from right total knee arthroplasty. ? The femoral and tibial components are in stable position without ? evidence of hardware loosening or failure. The patella has been ? resurfaced. No periprosthetic fracture is identified. A trace ? suprapatellar joint effusion is suspected. Mild prepatellar soft ? tissue swelling is present. ? IMPRESSION: ? Satisfactory appearance post right total knee arthroplasty. ? REPORT SIGNED IN OTHER VENDOR SYSTEM 12/13/2015 ?Reported By: Tamir Gates MD ? CC: ? Transcribed Date/Time: 12/13/2015 (1527) ? Gas Fitter Helper: ? Printed Date/Time: 12/09/2018 (2224) ? PAGE 1 ? Signed Report ? Procedure Note Tamir Gates MD - 05/04/2019 EXAM: RADIOLOGY/KNEE RT 3 VIEW EX. D/ (1104) CLINICAL INFORMATION: RIGHT TKR DOS: 11/12/15 XRAY DONE AT [facility] -[id number] KNEE RT 3 VIEW Signs and Symptoms/Comments: RIGHT TKR DOS: 11/12/15 XRAY DONE AT [facility]: -[id number] Comparison: 2015, 07/31/2015 Findings: Right knee: Supine AP, lateral and sunrise views were performed. Postsurgical changes are present from right total kneearthroplasty. The femoral and tibial components are in stable position without evidence of hardware loosening or failure. The patella has been resurfaced. No periprosthetic fracture is identified. A trace suprapatellar joint effusion is suspected. Mild prepatellar soft tissue swelling is present. IMPRESSION: Satisfactory appearance post right total knee arthroplasty. REPORT SIGNED IN OTHER VENDOR SYSTEM 12/13/2015 Reported By: Tamir Gates MD CC: Transcribed Date/Time: 12/13/2015 (1520) Gas Fitter Helper: Printed Date/Time: 12/09/2018 (8010) PAGE 1 Signed Report Dylan Kenyon MD IMG DIAGN OSTIC IMAGING ORDERABLES documented in this encounter Visit Diagnoses Not on filedocumented in this encounter Care Teams It Project Manager Relationship Specialty Start Date End Date Kristopher Mcneill MD [address] [address] [place] [id number] PCP - General 09/28/12 05/24/19 documented as of this encounter
--- OUTSIDE RECORDS SUMMARY | 2024-03-05 15:39 | XMS_ITS | Encounter Summary ---
Author Organization [facility] Address [address] [place] [address] Care Team Providers Care Geography Teacher Name Role Phone Kristopher Mcneill MD Primary Care Provider [phone] Encounter Details Date Type Department Care Team (Latest Contact Info) Description 01/01/2016 14:21 EDT - 01/01/2016 23:59 EDT Hospital Encounter [facility] [address] [place] [address] Unknown, Provider, Discharge Disposition: Home or Self Care Social History Tobacco Use Types Packs/Day Years Used Date Smoking Tobacco: Never Assessed Sex and Gender Information Value Date Recorded Sex Assigned at Not on file Gender Identity Not on file Sexual Orientation Not on file documented as of this encounter Discharge Disposition Disposition Code Departure Means Destination Home or Self Intermediate documented in this encounter Plan of Treatment Not on file documented as of this encounter Visit Diagnoses Not on filedocumented in this encounter Care Teams Geography Teacher Relationship Specialty Start Date End Date Kristopher Mcneill MD [facility] [address] SCHM[address]T,[facility] [address] [place] [phone] PCP - General 09/28/12 05/24/19 documented as of this encounter
--- OUTSIDE RECORDS SUMMARY | 2024-03-05 15:39 | XMS_ITS | Encounter Summary ---
Author Organization [facility] Address [address] [place] [address] Care Team Providers Care Agricultural And Forestry Supervisor Name Role Phone Kristopher Mcneill MD Primary Care Provider [phone] Shelia Harrison NP Primary Care Provider [phone] Encounter Details Date Type Department Care Team (Late st Contact Info) Description 07/04/2013 Historical Results Only [facility] - Main [place] [address] [place] [address] Morgan Amaya MD [address] [place] [address] [phone] Social History Tobacco Use Types Packs/Day Years Used Date Smoking Tobacco: Never Assessed Sex and Gender Information Value Date Recorded Sex Assigned at Not on file Gender Identity Not on file Sexual Orientation Not on file documented as of this encounter Plan of Treatment Not on file documented as of this encounter Procedures Procedure Name Priority Date/Time Associated Diagnosis Comments SURGICAL PATHOLOGY Routine 07/04/2013 documented in this encounter Results * SURGICAL PATHOLOGY (07/04/2013) 07/04/2013 07/04/2013 12: 54 EST Narrative [facility] - 07/05/2013 15:57 EST ----- ------- Name: KANDY SEYMOUR ?: [birth year] ?Age/Sex: 58/F ?Unit#: [id number] ? Loc: END ? Status: DEP CLI ?? Reg Date: 07/04/13 ? Pt.Phone Number: ? ----- ------- Specimen: [id number] ? STATUS: SOUT ?Spec Date:07/04/13 ? Physician Copies: ?Morgan Amaya MD ? Tissues: A ?? Gastrointestinal Tract (SIGMOID COLON) ? Lashawn Crabtree CPT: 17393 ?? Units: ??1 ?FINAL DIAGNOSIS ? Sigmoid colon, polyp, biopsy; ? -Tubular adenoma. ? GROSS DESCRIPTION ? Received in formalin and placed in Bouin's for a short time and labeled ? sigmoid biopsies is a mucosal tissue fragment 0.1 cm in greatest dimensions, ? e.s. ??BT ?? PREOP DX/CLINICAL HISTORY ?SCREENING Signed ____(signature on file)____ NielsMiguel M.D. 07/05/13 ?? By the signature above, the attending physician certifies that he/she has personally conducted a gross and/or microscopic examination of the described specimens and rendered or confirmed the above diagnosis. Test Performed by [facility], [address] [place] [id number] Curtain Worker: Tania Leiva MD PHD ----- ------- Morgan Amaya MD PATHOLOGY ORDERABLES [facility] documented in this encounter Visit Diagnoses Not on filedocumented in this encounter Care Teams Agricultural And Forestry Supervisor Relationship Specialty Start Date End Date Kristopher Mcneill MD [address] [place] [address] PCP - General 09/28/12 05/24/19 Shelia Harrison NP [address] [place] [address] PCP - General 05/25/19 08/09/19 documented as of this encounter
--- OUTSIDE RECORDS SUMMARY | 2024-03-05 15:39 | XMS_ITS | Encounter Summary ---
Author Organization [facility] Address [address] [place] [address] Care Team Providers Care Machinist Set Up Name Role Phone Kristopher Mcneill MD Primary Care Provider [phone] Encounter Details Date Type Department Care Team (Late st Contact Info) Description 04/16/2016 Historical Results Only [facility] Rad[place] Results [address] [place], [place] [id number] Brandi Saenz PA-C [address] [place] [phone] Social History Tobacco Use Types Packs/Day Years Used Date Smoking Tobacco: Never Assessed Sex and Gender Information Value Date Recorded Sex Assigned at Not on file Gender Identity Not on file Sexual Orientation Not on file documented as of this encounter Plan of Treatment Not on file documented as of this encounter Procedures Procedure Name Priority Date/Time Associated Diagnosis Comments XR ANKLE LEFT 3 OR MORE VIEWS 04/16/2016 12:15 EDT documented in this encounter Results * XR ANKLE LEFT 3 OR MORE VIEWS (04/16/2016 12:15 EDT) Anatomical Region Laterality Modality Lower Extremities, Ankle Left Other 04/16/2016 12:1 5 EDT Narrative 04/16/2016 12:20 EDT ? EXAM: RADIOLOGY/ANKLE LEFT 3+VIEW ? EX. D/ (1146) ? CLINICAL INFORMATION: ? LEFT ANKLE PAIN PA REQUESTED OPEN COLLIMATION TO INCLUDE FOOT ? -M25.572 ? ANKLE LEFT 3+VIEW ? Signs and Symptoms/Comments: ??LEFT ANKLE PAIN PA REQUESTED OPEN ? COLLIMATION TO INCLUDE FOOT: -M25.572 ? Comparison: 2015 ? Findings: ? Left ankle: 3 views were performed. No acute fracture or malalignment ? is identified. Mild degenerative changes are present in the ankle. ? Moderate degenerative changes are present in the hindfoot and visible ? midfoot. There is a small enthesophyte at the calcaneal insertion of ? the plantar aponeurosis. The soft tissues about the ankle are mildly ? swollen is identified. ? IMPRESSION: ? 1. ??No fracture. ? 2. ??Mild-moderate degenerative changes in the ankle and foot. ? REPORT SIGNED IN OTHER VENDOR SYSTEM 04/16/2016 ?Reported By: Tamir Gates MD ? CC: ? Transcribed Date/Time: 04/16/2016 (1220) ? Medical Appointment Clerk: ? Printed Date/Time: 12/10/2018 (0922) ? PAGE 1 ? Signed Report ? Procedure Note Tamir Gates MD - 05/04/2019 EXAM: RADIOLOGY/ANKLE LEFT 3+VIEW EX. D/ (1146) CLINICAL INFORMATION: LEFT ANKLE PAIN PA REQUESTED OPEN COLLIMATION TO INCLUDE FOOT -M25.572 ANKLE LEFT 3+VIEW Signs and Symptoms/Comments: LEFT ANKLE PAIN PA REQUESTED OPEN COLLIMATION TO INCLUDE FOOT: -M25.572 Comparison: 2015 Findings: Left ankle: 3 views were performed. No acute fracture ormalalignment is identified. Mild degenerative changes are present in the ankle. Moderate degenerative changes are present in the hindfoot andvisible midfoot. There is a small enthesophyte at the calcaneal insertionof the plantar aponeurosis. The soft tissues about the ankle aremildly swollen is identified. IMPRESSION: 1. No fracture. 2. Mild-moderate degenerative changes in the ankle and foot. REPORT SIGNED IN OTHER VENDOR SYSTEM 04/16/2016 Reported By: Tamir Gates MD CC: Transcribed Date/Time: 04/16/2016 (1220) Medical Appointment Clerk: Printed Date/Time: 12/10/2018 (1726) PAGE 1 Signed Report Brandi Saenz PA-C [facility] ORDERABLES documented in this encounter Visit Diagnoses Not on filedocumented in this encounter Care Teams Machinist Set Up Relationship Specialty Start Date End Date Kristopher Mcneill MD [facility] [address],[facility] [address] [place] [address] PCP - General 09/28/12 05/24/19 documented as of this encounter
--- OUTSIDE RECORDS SUMMARY | 2024-03-05 15:39 | XMS_ITS | Encounter Summary ---
Author Organization [facility] Address [address] [place] [address] Care Team Providers Care Sampler Pickup Name Role Phone Kristopher Mcneill MD Primary Care Provider [phone] Encounter Details Date Type Department Care Team (Latest Contact Info) Description 10/05/2015 11:24 EDT - 10/05/2015 23:[address] [facility] [address] [place] [address] Unknown, Provider, Discharge Disposition: Home or Self Care Social History Tobacco Use Types Packs/Day Years Used Date Smoking Tobacco: Never Assessed Sex and Gender Information Value Date Recorded Sex Assigned at Not on file Gender Identity Not on file Sexual Orientation Not on file documented as of this encounter Discharge Disposition Disposition Code Departure Means Destination Home or Self Longterm documented in this encounter Plan of Treatment Not on file documented as of this encounter Visit Diagnoses Not on filedocumented in this encounter Care Teams Sampler Pickup Relationship Specialty Start Date End Date Kristopher Mcneill MD [facility] [address],[facility] [address] [place] [phone] PCP - General 09/28/12 05/24/19 documented as of this encounter
--- OUTSIDE RECORDS SUMMARY | 2024-03-05 15:39 | XMS_ITS | Referral Summary ---
Author Organization [facility] Address [address] [place] [address] Care Team Providers Care Train Clerk Name Role Phone Rebecca Giles Miriam THORNE Primary Care Provider [phone] Immunizations Name Administration Dates Next Due Influenza Vaccine Quad (AFLURIA) PF 0.5 ml IM (3 yrs+) 03/22/2018,03/18/2017 Tdap Vaccine =>7YO IM 07/23/2018,08/30/2012 Social History Tobacco Use Types Packs/Day Years Used Date Smoking Tobacco: Never Assessed Interpersonal Safety Answer Date Record ed Physically Hurt Never 01/29/2020 Verbally Threaten Not on file 01/29/2020 Sex and Gender Information Value Date Recorded Sex Assigned at Not on file Gender Identity Not on file Sexual Orientation Not on file Plan of Treatment Not on file Procedures Procedure Name Priority Date/Time Associated Diagnosis Comments PAP TEST Today 08/10/2020 15:00 EST Encounter for other general examination HEPATITIS C AB W REFLEX TO HCV RNA BY PCR Routine 03/18/2017 11:55 EDT MA BREAST SCREENING AILIN BILATERAL 01/01/2016 11:25 EDT from Last 3 Months or Most Recently Relevant to Health Maintenance Results * PAP TEST (08/10/2020 15:00 EST) Specimens A. Cervix and/or Endocervix , ThinPrep Imaging System with Manual Evaluation 08/23/2020 7:46 EST [facility] Specimen Adequacy Satisfactory for Evaluation - transformation zone component present 08/23/2020 7:46 [facility] General Categorization Negative for intraepithelial lesion or malignancy 08/23/2020 7:46 [facility] Attestation . 08/23/2020 7:46 [facility] at 0745 Clinical History See below 08/23/19 7:46 [facility] HPV The result for the Human Papillomavirus (HPV) Detection-High Risk Types is Negative. No E6 or E7 mRNA is detected from HPV types 16,18,31,33,35,39 ,45,51,52,56,58,5 9,66, and 68 by laborer vegetable farm mediated amplification.Divya ting was performed on specimen [id number] and was resulted on 08/23/2020 0710 EST by GORGE, LAB INSTRUMENT RESULTS IN 08/23/2020 7:46 [facility] Performing Lab [facility] 08/23/2020 7:46 [facility] Scanned Images 08/23/2020 7:46 [facility] Papanicolaou smear specimen (specimen) CERVIX UTERI STRUCTURE / Unknown 08/10/2020 15:00 EST 08/13/2020 14:56 EST Ana Kruger PATHOLOGY ORDERABLES [facility] [address] [place] [address] * HEPATITIS C AB W REFLEX TO HCV RNA BY PCR (03/18/2017 11:55 EDT) HEPATITIS C AB W/REFLEX - MC Negative 03/18/2017 16:23 EDT [facility] Comment:Expected Values: Neg ative. 03/18/2017 11:5 5 EDT 03/18/2017 14:56 EDT Shelia Guajardo Anti ARCHITECTURAL PRACTICE MANAGER CHEMISTRY & BLOOD G ORDERABLES [facility] * MA BREAST SCREENING AILIN BILATERAL (01/01/2016 11:25 EDT) Anatomical Region Laterality Modality Breast Bilateral Other 01/01/2016 11:2 5 EDT Narrative 01/03/2016 9:00 EDT ? EXAM: MAMMOGRAM/MAMMO BILATERAL SCREEN W ??EX. D/ (1125) ? CLINICAL INFORMATION: ? Z12.39 SCREENING RACHEL ? TECHNIQUE: ??Full field digital whole breast 2D (C-view) and 3D CC and ? MLO views of both breasts were obtained. CAD technology was utilized. ? INDICATION: ??Screening ? FINDINGS: ??The fibroglandular patterns of the breasts are normal. ? There has been no change when compared to previous mammograms and ? there is no mammographic evidence of cancer. The breasts are of ? scattered density. ? FINAL ASSESSMENT: ??BILATERAL BREAST - Category 1 - Negative. Routine ?mammographic follow-up is recommended. ? These results will be communicated to your patient via a lay letter ? from Radiology. ??If any additional imaging is needed we will contact ? your patient directly. ? JSP:dnl ?Reported By: Kristopher Harrison MD ? CC: ? Transcribed Date/Time: 01/03/2016 (0900) ? Event Sales Assistant: JENNY ? Printed Date/Time: 12/09/2018 (0553) ? PAGE 1 ? Signed Report ? Procedure Note Kristopher Harrison MD - 05/04/2019 EXAM: MAMMOGRAM/MAMMO BILATERAL SCREEN W EX. D/ (1125) CLINICAL INFORMATION: Z12.39 SCREENING RACHEL TECHNIQUE: Full field digital whole breast 2D (C-view) and 3D CCand MLO views of both breasts were obtained. CAD technology wasutilized. INDICATION: Screening FINDINGS: The fibroglandular patterns of the breasts are normal. There has been no change when compared to previous mammograms and there is no mammographic evidence of cancer. The breasts are of scattered density. FINAL ASSESSMENT: BILATERAL BREAST - Category 1 - Negative.Routine mammographic follow-up is recommended. These results will be communicated to your patient via a lay letter from Radiology. If any additional imaging is needed we willcontact your patient directly. JSP:dnl Reported By: Kristopher Harrison MD CC: Transcribed Date/Time: 01/03/2016 (0900) Event Sales Assistant: JENNY Printed Date/Time: 12/09/2018 (6155) PAGE 1 Signed Report Michell Prescott NP IMG MAMMOGRAPHY ORDE APARNA from Last 3 Months or Most Recently Relevant to Health Maintenance Care Teams Train Clerk Relationship Specialty Start Date End Date Rebecca Giles APRN PCP - General Family Medicine - [facility] 08/10/19
--- OUTSIDE RECORDS SUMMARY | 2024-03-05 15:39 | XMS_ITS | Encounter Summary ---
Author Organization [facility] Address [address] [place] [address] Care Team Providers Care Bread Jockey Name Role Phone Kristopher Mcneill MD Primary Care Provider Encounter Details Date Type Department Care Team (Late st Contact Info) Description 02/16/[address] [facility] [place] Radiology Results [address] [place] [address] Brandi Saenz PA-C [address] [place] [phone] Social History Tobacco Use Types Packs/Day Years Used Date Smoking Tobacco: Never Assessed Sex and Gender Information Value Date Recorded Sex Assigned at Not on file Gender Identity Not on file Sexual Orientation Not on file documented as of this encounter Plan of Treatment Not on file documented as of this encounter Procedures Procedure Name Priority Date/Time Associated Diagnosis Comments XR KNEE LEFT 4 OR MORE VIEWS 02/16/2017 16:05 EDT documented in this encounter Results * XR KNEE LEFT 4 OR MORE VIEWS (02/16/2017 16:05 EDT) Anatomical Region Laterality Modality Lower Extremities Left Other 02/16/2017 16:0 5 EDT Narrative 02/16/2017 16:08 EDT ? EXAM: RADIOLOGY/ORTHO LT KNEE ARTHRITIS S EX. D/ (1533) ? CLINICAL INFORMATION: ? M25.562 - Left knee pain, unspecified chronicity ? ORTHO LT KNEE ARTHRITIS SERIES ? Signs and Symptoms/Comments: ??M25.562 - Left knee pain, unspecified ? chronicity ? Comparison: 12/13/2015, 2015 ? Findings: ? Right Knee: A single standing PA flexion view was performed for ? comparison. The patient is status post remote right total knee ? arthroplasty. The femoral and tibial components are in grossly ? unchanged position on the single view obtained. No periprosthetic ? fracture is visible on the single view obtained. The absence of a ? lateral view precludes complete evaluation for joint effusion. ? Left Knee: Standing AP, PA flexion, lateral and sunrise views were ? performed. No acute fracture or malalignment is identified. ? Moderate-severe tricompartmental osteoarthrosis is present, with ? significant joint space narrowing in the medial tibiofemoral ? compartment. Overall, degenerative changes are similar to 2016. A ? trace suprapatellar joint effusion is present. ? IMPRESSION: ? 1. ??Moderate-severe left knee tricompartmental osteoarthrosis. ? 2. ??Trace left knee joint effusion. ? 3. ??Remote right total knee arthroplasty. ? REPORT SIGNED IN OTHER VENDOR SYSTEM 02/16/2017 ?Reported By: Tamir Gates MD ? CC: ? Transcribed Date/Time: 02/16/2017 (1608) ? Service Delivery Supervisor: ? Printed Date/Time: 12/14/2018 (1128) ? PAGE 1 ? Signed Report ? Procedure Note Tamir Gates MD - 05/04/2019 EXAM: RADIOLOGY/ORTHO LT KNEE ARTHRITIS S EX. D/ (1533) CLINICAL INFORMATION: M25.562 - Left knee pain, unspecified chronicity ORTHO LT KNEE ARTHRITIS SERIES Signs and Symptoms/Comments: M25.562 - Left knee pain, unspecified chronicity Comparison: 12/13/2015, 2015 Findings: Right Knee: A single standing PA flexion view was performed for comparison. The patient is status post remote right total knee arthroplasty. The femoral and tibial components are in grossly unchanged position on the single view obtained. No periprosthetic fracture is visible on the single view obtained. The absence of a lateral view precludes complete evaluation for joint effusion. Left Knee: Standing AP, PA flexion, lateral and sunrise views were performed. No acute fracture or malalignment is identified. Moderate-severe tricompartmental osteoarthrosis is present, with significant joint space narrowing in the medial tibiofemoral compartment. Overall, degenerative changes are similar to 2016. A trace suprapatellar joint effusion is present. IMPRESSION: 1. Moderate-severe left knee tricompartmental osteoarthrosis. 2. Trace left knee joint effusion. 3. Remote right total knee arthroplasty. REPORT SIGNED IN OTHER VENDOR SYSTEM 02/16/2017 Reported By: Tamir Gates MD CC: Transcribed Date/Time: 02/16/2017 (1608) Service Delivery Supervisor: Printed Date/Time: 12/14/2018 (5471) PAGE 1 Signed Report Brandi Saenz PA-C [facility] ORDERABLES documented in this encounter Visit Diagnoses Not on filedocumented in this encounter Care Teams Bread Jockey Relationship Specialty Start Date End Date Kristopher Mcneill MD [facility] [address] [place] [address] PCP - General 09/28/12 05/24/19 documented as of this encounter
--- OUTSIDE RECORDS SUMMARY | 2024-03-05 15:39 | XMS_ITS | Encounter Summary ---
Author Organization [facility] Address [address] [place] [address] Care Team Providers Care Oakes Machine Operator Name Role Phone Kristopher Mcneill MD Primary Care Provider [phone] Encounter Details Date Type Department Care Team (Late st Contact Info) Description 10/05/2015 Historical Results Only [facility] Radiology Results [address] [place] [address] Hattie Asencio Ae, QUALITATIVE RESEARCHER [address] [place] [address] Social History Tobacco Use Types Packs/Day Years Used Date Smoking Tobacco: Never Assessed Sex and Gender Information Value Date Recorded Sex Assigned at Not on file Gender Identity Not on file Sexual Orientation Not on file documented as of this encounter Plan of Treatment Not on file documented as of this encounter Procedures Procedure Name Priority Date/Time Associated Diagnosis Comments US EXTREMITY 10/05/2015 15:36 EDT documented in this encounter Results * US EXTREMITY (10/05/2015 15:36 EDT) Anatomical Region Laterality Modality Other 10/05/2015 15:3 6 EDT Narrative 10/05/2015 15:40 EDT ? EXAM: ULTRASOUND/DOPPLER VEIN EXTREMITY R EX. D/ (1526) ? CLINICAL INFORMATION: ? I82.409 RIGHT LOWER EXTREMITY PAIN, R/O DVT ? Indication: I82.409 RIGHT LOWER EXTREMITY PAIN, R/O DVT. ? Comparison: None. ? Technique: Duplex Doppler ultrasound examination of the right leg was ? performed. ? Findings: The deep veins of the calf are not adequately visualized ? due to calf edema and patient's body habitus. The right popliteal, ? superficial femoral and common femoral veins demonstrate normal ? compressibility, flow and augmentation. No DVT is identified. ? There is a hypoechoic fluid collection measuring 5.1 cm x 1.5 cm x ? 1.9 cm within the popliteal fossa likely representing a Gilbert's cyst. ? Impression: ? 1. No DVT identified. ? 2. Probable Gilbert's cyst. ? REPORT SIGNED IN OTHER VENDOR SYSTEM 10/05/2015 ?Reported By: Chang Martinez MD ? CC: ? Transcribed Date/Time: 10/05/2015 (1540) ? Textile Screen Maker: ? Printed Date/Time: 12/09/2018 (1013) ? PAGE 1 ? Signed Report ? Procedure Note Chang Martinez MD - 05/04/2019 EXAM: ULTRASOUND/DOPPLER VEIN EXTREMITY R EX. D/ (1526) CLINICAL INFORMATION: I82.409 RIGHT LOWER EXTREMITY PAIN, R/O DVT Indication: I82.409 RIGHT LOWER EXTREMITY PAIN, R/O DVT. Comparison: None. Technique: Duplex Doppler ultrasound examination of the right legwas performed. Findings: The deep veins of the calf are not adequately visualized due to calf edema and patient's body habitus. The right popliteal, superficial femoral and common femoral veins demonstrate normal compressibility, flow and augmentation. No DVT is identified. There is a hypoechoic fluid collection measuring 5.1 cm x 1.5 cm x 1.9 cm within the popliteal fossa likely representing a Gilbert'scyst. Impression: 1. No DVT identified. 2. Probable Gilbert's cyst. REPORT SIGNED IN OTHER VENDOR SYSTEM 10/05/2015 Reported By: Chang Martinez MD CC: Transcribed Date/Time: 10/05/2015 (6159) Textile Screen Maker: Printed Date/Time: 12/09/2018 (9302) PAGE 1 Signed Report Hattie Solis debo QUALITATIVE RESEARCHER IMG US ORDERABLES documented in this encounter Visit Diagnoses Not on filedocumented in this encounter Care Teams Oakes Machine Operator Relationship Specialty Start Date End Date Kristopher Mcneill MD [facility] [address]OVANNY SCHMIDT,[facility] [address] [place] [phone] PCP - General 09/28/12 05/24/19 documented as of this encounter
--- OUTSIDE RECORDS SUMMARY | 2024-03-05 15:39 | XMS_ITS | Clinical Summary ---
Author Organization [facility] Address [address] [place] [address] Care Team Providers Care Print Developer Name Role Phone Rebecca Giles Miriam THORNE Primary Care Provider [phone] Immunizations Name Administration Dates Next Due Influenza [...] Orientation Not on file Plan of Treatment Health Maintenance Due Date Last Done Comments Social Determinants Of Health (SDOH) 1961 Lipid Profile Screening (Cholesterol) 1964 Depression Screening 1973 HIV Screening 1977 Advance Directive 11/15/1979 Preventive Care Visit 11/15/1979 Cologuard (Colon Cancer Screening) 2006 Colonoscopy (Colon Cancer Screening) 2006 Colorectal Cancer Screening 2006 FIT Test (Colon Cancer Screening) 2006 Sigmoidoscopy (Colon Cancer Screening) 2006 Shingles Immunization (1 of 2) 11/15/2011 Breast Cancer Screening 12/31/2017 01/01/2016, 09/30 RSV Immunization ( o r 60+ Years) (1 - 1-dose 60+ series) 2021 COVID-19 Vaccine ( season) 2023 Pap Smear (Cervical Cancer Screening) 08/10/2023 08/10/2020, 12/14/2015, 07/29/2011 Influenza Immunization (Adult) (#1) 03/29/202403/22, 03/18/2017 Cervical Cancer Screening 08/10/2025 HPV/Cotest (Cervical Cancer Screening) 08/10/2025 08/10/2020, 08/10/2020 Tetanus (Adult) Immunization 07/23/2028 07/23/2018, 08/30/2012 Hepatitis C Screen Completed 03/18/2017 Pertussis (Adult) Immunization Completed 07/23/2018 , 08/30/2012 Procedures Procedure Name Priority Date/Time Associated Diagnosis [...] Imaging System with Manual Evaluation 08/23/2020 7:46 [facility] Specimen Adequacy Satisfactory for Evaluation - transformation zone component present 08/23/2020 7:46 [facility] General Categorization Negative for intraepithelial lesion or malignancy 08/23/2020 7:46 [facility] Attestation . 08/23/2020 7:46 [facility] at 0745 Clinical History See below 08/23/19 7:46 [facility] HPV The result for the Human Papillomavirus (HPV) Detection-High Risk Types is Negative. No E6 or E7 mRNA is detected from HPV types 16,18,31,33,35,39 ,45,51,52,56,58,5 9,66, and 68 by edge grinder mediated amplification.Divya ting was performed on specimen [id number] and was resulted on 08/23/2020 0710 EST by GORGE, LAB INSTRUMENT RESULTS IN 08/23/2020 7:46 EST [facility] Performing Lab [facility] 08/23/2020 7:46 EST [facility] Scanned Images 08/23/2020 7:46 EST [facility] Papanicolaou smear specimen (specimen) CERVIX UTERI STRUCTURE / Unknown 08/10/2020 15:00 EST 08/13/2020 14:56 EST Ana Kruger PATHOLOGY ORDERABLES [facility] [address] [place] [address] * HEPATITIS C AB W REFLEX TO HCV RNA BY PCR (03/18/2017 11:55 EDT) HEPATITIS C AB W/REFLEX - MC Negative 03/18/2017 16:23 EDT [facility] Comment:Expected Values: Neg ative. 03/18/2017 11:5 5 EDT 03/18/2017 14:56 EDT Shelia Guajardo Anti HALL CLEANER CHEMISTRY & BLOOD G ORDERABLES [facility] [...] CC: ? Transcribed Date/Time: 01/03/2016 (0900) ? Linen Worker: JENNY ? Printed Date/Time: 12/09/2018 (2224) ? PAGE [...] Harrison MD CC: Transcribed Date/Time: 01/03/2016 (0900) Linen Worker: JENNY Printed Date/Time: 12/09/2018 (5274) PAGE 1 Signed Report Michell Prescott NP IMG MAMMOGRAPHY MEENA BRAUN from Last 3 Months or Most Recently Relevant to Health Maintenance Care Teams Print Developer Relationship Specialty Start Date End Date Rebecca Giles APRN PCP - General Family Medicine - Hospital Medicine 08/10/19
--- OUTSIDE RECORDS SUMMARY | 2024-03-05 15:39 | XMS_ITS | Encounter Summary ---
Author Organization [facility] Address [address] [place] [address] Care Team Providers Care Dental Treatment Coordinator Name Role Phone Kristopher Mcneill MD Primary Care Provider [phone] Encounter Details Date Type Department Care Team (Late st Contact Info) Description 08/01/2015 Historical Results Only [facility] - [facility] Lab - Main [address] [id number] Flores Huerta MD [address] [facility] [address] [place] [address] Social History Tobacco Use Types Packs/Day Years Used Date Smoking Tobacco: Never Assessed Sex and Gender Information Value Date Recorded Sex Assigned at Not on file Gender Identity Not on file Sexual Orientation Not on file documented as of this encounter Plan of Treatment Not on file documented as of this encounter Procedures Procedure Name Priority Date/Time Associated Diagnosis Comments SURGICAL PATHOLOGY Routine 08/01/2015 documented in this encounter Results * SURGICAL PATHOLOGY (08/01/2015) 08/01/2015 08/02/2015 10: 32 EST Narrative [facility] - 08/06/2015 13:14 EST PREOP POSTMENOPAUSAL BLEEDING Procedure: HYSTEROSCOPY W/POLYPECTOMIES Tissue Removed MULTIPLE ENDOMETRIAL POLYPS LMP: Prev.Abn Pap: 2012 ----- ------- Name: KANDY SEYMOUR ?: [birth year] ?Age/Sex: 58/F ?Unit#: [id number] ? Loc: AGO ? Status: REG POV ?? Reg Date: 08/01/15 ? Pt.Phone Number: ? ----- ------- Specimen: [id number] ?STATUS: SOUT ?Spec Date:08/01/15 ? Physician Copies: ?Flores Huerta ? Tissues: A ?? Endometrium, polyp ? Shelia Harrison APRN ?? CPT: 63065 ?? Units: ??1 ?FINAL DIAGNOSIS ? Endometrium, polyps, biopsy; ? - Endometrial polyp, multiple fragments. ? GROSS DESCRIPTION ? Received in formalin labeled with the patient's name and multiple endometrial ? polyps is an estimated 1.2 cc aggregate of meade-brown tissue fragments, ? filtered, e.s. 1. ??NM ?? PREOP DX/CLINICAL HISTORY ?Post menopausal bleeding Signed ____(signature on file)____ Tania Leiva M.D. 08/06/15 By the signature above, the attending physician certifies that he/she has personally conducted a gross and/or microscopic examination of the described specimens and rendered or confirmed the above diagnosis. Test Performed by [facility], [address] [place] [address] Metal Sander And Finisher: Tania Leiva MD PHD ----- ------- Flores Huerta MD PATHOLOGY ORDERABLES Performing Organization Address City/State/[facility] Co de Phone Number [facility] documented in this encounter Visit Diagnoses Not on filedocumented in this encounter Care Teams Dental Treatment Coordinator Relationship Specialty Start Date End Date Kristopher Mcneill MD [address],[facility] [address] [place] [phone] PCP - General 09/28/12 05/24/19 documented as of this encounter
--- OUTSIDE RECORDS SUMMARY | 2024-03-05 15:39 | XMS_ITS | Encounter Summary ---
Author Organization [facility] Address [address] [place] [address] Care Team Providers Care Asbestos Shingle Roofer Name Role Phone Kristopher Mcneill MD Primary Care Provider [phone] Encounter Details Date Type Department Care Team (Late st Contact Info) Description 05/07/2015 Historical Results Only [facility] - [facility] Radiology Results [address] [place] [address] Shelia Harrison, [address]ER[address] [place], [place] [id number] Social History Tobacco Use Types Packs/Day Years Used Date Smoking Tobacco: Never Assessed Sex and Gender Information Value Date Recorded Sex Assigned at Not on file Gender Identity Not on file Sexual Orientation Not on file documented as of this encounter Plan of Treatment Not on file documented as of this encounter Procedures Procedure Name Priority Date/Time Associated Diagnosis Comments US PELVIS TRANSVAGINAL COMPLETE 05/07/2015 15:30 EST documented in this encounter Results * US PELVIS TRANSVAGINAL (05/07/2015 15:30 EST) Anatomical Region Laterality Modality Pelvis Other 05/07/2015 15:3 0 EST Narrative 05/07/2015 15:36 EST ? EXAM: ULTRASOUND/TRANSVAGINAL - PIN MACHINE TENDER ? EX. D/ (1440) ? CLINICAL INFORMATION: ? N95.0 POST MENOPAUSAL BLEEDING, R/O ENDOMETRIAL CA ? INDICATION: Dysfunctional uterine bleeding. ? TECHNIQUE: Transabdominal andTransvaginal pelvic ultrasound. Arterial ? and venous spectral waveforms along with color imaging of the ? ovaries. ? COMPARISON: 10/23/2009 ? FINDINGS: ?The uterus measures 8.4 x 4.5 x 7.0 centimeters. The ? endometrium measures 6.7 mm in thickness. Multiple hypoechoic uterine ? fibroids are seen. The largest of which is in the anterior on this ? measuring 1.3 x 1.6 cm. No free fluid is seen in the cul-de-sac. ? Transabdominal and transvaginal imaging was performed. The ovaries ? are not visible and the adnexa. The region of the adnexa is grossly ? unremarkable. ? IMPRESSION: ? 1. ??Fibroid uterus. ? 2. Abnormally thickened endometrial stripe for a postmenopausal ? patient (though the diameter is unchanged from 10/23/2009). Please ? correlate clinically. ? REPORT SIGNED IN OTHER VENDOR SYSTEM 05/07/2015 ?Reported By: Kristopher Harrison MD ? CC: ? Transcribed Date/Time: 05/07/2015 (1536) ? Backhaul Driver: ? Printed Date/Time: 12/08/2018 (0912) ? PAGE 1 ? Signed Report ? Procedure Note Kristopher Harrison MD - 05/04/2019 EXAM: ULTRASOUND/TRANSVAGINAL - PIN MACHINE TENDER EX. D/ (1440) CLINICAL INFORMATION: N95.0 POST MENOPAUSAL BLEEDING, R/O ENDOMETRIAL CA INDICATION: Dysfunctional uterine bleeding. TECHNIQUE: Transabdominal andTransvaginal pelvic ultrasound.Arterial and venous spectral waveforms along with color imaging of the ovaries. COMPARISON: 10/23/2009 FINDINGS: The uterus measures 8.4 x 4.5 x 7.0 centimeters. The endometrium measures 6.7 mm in thickness. Multiple hypoechoicuterine fibroids are seen. The largest of which is in the anterior on this measuring 1.3 x 1.6 cm. No free fluid is seen in the cul-de-sac. Transabdominal and transvaginal imaging was performed. The ovaries are not visible and the adnexa. The region of the adnexa is grossly unremarkable. IMPRESSION: 1. Fibroid uterus. 2. Abnormally thickened endometrial stripe for a postmenopausal patient (though the diameter is unchanged from 10/23/2009). Please correlate clinically. REPORT SIGNED IN OTHER VENDOR SYSTEM 05/07/2015 Reported By: Kristopher Harrison MD CC: Transcribed Date/Time: 05/07/2015 (1536) Backhaul Driver: Printed Date/Time: 12/08/2018 (7751) PAGE 1 Signed Report Shelia Guajardo Anti HYDROELECTRIC PLANT MECHANICAL ENGINEER IMG US OB ORDERABLE S documented in this encounter Visit Diagnoses Not on filedocumented in this encounter Care Teams Asbestos Shingle Roofer Relationship Specialty Start Date End Date Kristopher Mcneill MD On license of [facility] [address],[facility] [address] [place] [phone] PCP - General 09/28/12 05/24/19 documented as of this encounter
--- OUTSIDE RECORDS SUMMARY | 2024-03-05 15:39 | XMS_ITS | Encounter Summary ---
Author Organization [facility] Address [address] [place] [address] Care Team Providers Care Library Serials Assistant Name Role Phone Kristopher Mcneill MD Primary Care Provider [phone] Encounter Details Date Type Department Care Team (Late st Contact Info) Description 05/18/2015 Historical Results Only [facility] - [facility] Lab - Main [address] [id number] Flores Huerta MD [address] [facility] [address] [place] [address] Social History Tobacco Use Types Packs/Day Years Used Date Smoking Tobacco: Never Assessed Sex and Gender Information Value Date Recorded Sex Assigned at Not on file Gender Identity Not on file Sexual Orientation Not on file documented as of this encounter Plan of Treatment Not on file documented as of this encounter Procedures Procedure Name Priority Date/Time Associated Diagnosis Comments SURGICAL PATHOLOGY Routine 05/18/2015 documented in this encounter Results * SURGICAL PATHOLOGY (05/18/2015) 05/18/2015 05/21/2015 10: 29 EST Narrative [facility] - 05/22/2015 9:45 EST PREOP PMB Procedure: ENDOMETRIAL BIOPSY Tissue Removed ENDOMETRIUM LMP: Prev.Abn Pap: 06/22/2012 ----- ------- Name: KANDY SEYMOUR ?: [birth year] ?Age/Sex: 58/F ?Unit#: [id number] ? Loc: AGO ? Status: REG POV ?? Reg Date: 05/18/15 ? Pt.Phone Number: ? ----- ------- Specimen: [id number] ? STATUS: SOUT ?Spec Date:05/18/15 ? Physician Copies: ?Flores Huerta ? Tissues: A ?? Endometrium, biopsy ?Shelia Harrison APRN ?? CPT: 32653 ?? Units: ??1 ?FINAL DIAGNOSIS ? Endometrium, biopsy; ? - Endometrial polyp. ? - Strips of inactive surface endometrial epithelium. ? - Benign endocervical fragments. ? GROSS DESCRIPTION ? Received in formalin labeled with the patient's name is an estimated 2 cc ? aggregate of meade-brown tissue fragments in mucus filtered, e.s. 1. KF ?? PREOP DX/CLINICAL HISTORY ?Post menopausal bleeding Signed ____(signature on file)____ Zack Ragsdale M.D. 05/22/15 By the signature above, the attending physician certifies that he/she has personally conducted a gross and/or microscopic examination of the described specimens and rendered or confirmed the above diagnosis. Test Performed by [facility], [address] [place] [id number] Plumbing Engineering Draftsperson: Tania Leiva MD PHD ----- ------- Flores Huerta MD PATHOLOGY ORDERABLES Performing Organization Address City/State/[facility] Co de Phone Number [facility] documented in this encounter Visit Diagnoses Not on filedocumented in this encounter Care Teams Library Serials Assistant Relationship Specialty Start Date End Date Kristopher Mcneill MD [address],[facility] [address] [place] [phone] PCP - General 09/28/12 05/24/19 documented as of this encounter
--- OUTSIDE RECORDS SUMMARY | 2024-03-05 15:39 | XMS_ITS | Encounter Summary ---
Author Organization [facility] Address [address] [place] [address] Care Team Providers Care College Or [employer] Registrar Name Role Phone Kristopher Mcneill MD Primary Care Provider [phone] Encounter Details Date Type Department Care Team (Late st Contact Info) Description 05/11/[address] [facility] Radiology Results [address] [place] [address] Lisa Gipson, GUERLINE [address] [place] [address] [place] [phone] Social History Tobacco Use Types Packs/Day Years Used Date Smoking Tobacco: Never Assessed Sex and Gender Information Value Date Recorded Sex Assigned at Not on file Gender Identity Not on file Sexual Orientation Not on file documented as of this encounter Plan of Treatment Not on file documented as of this encounter Procedures Procedure Name Priority Date/Time Associated Diagnosis Comments NM BONE WHOLE BODY SINGLE ZONE WITH SPECT/CT 05/11/2017 14:55 EST documented in this encounter Results * NM BONE WHOLE BODY WITH SPECT (05/11/2017 14:55 EST) Anatomical Region Laterality Modality Body Other 05/11/2017 14:5 5 EST Narrative 05/11/2017 14:58 EST ? EXAM: NUCLEAR MEDICINE/BONE SPECT WITH WH EX. D/ (1220) ? CLINICAL INFORMATION: ? M54.17LUMBAR BACK PAIN W/RADICULOPATHY ? AFFECTING (R) LOWER EXTREMITY ? BONE SPECT WITH WHOLE BODY ? Signs and Symptoms/Comments: ??M54.17LUMBAR BACK PAIN W/RADICULOPATHY ? AFFECTING (R) LOWER EXTREMITY. 56-year-old female with low back pain ? and presence of spondylolisthesis@L5-S1. ? Comparison: Lumbar spine radiographs on 04/07/2017. CT abdomen pelvis ? on 04/25/2013. ? Technique: After the intravenous administration of 20.0 mCi Tc-99m ? MDP, whole-body planar images were performed, followed by SPECT CT ? images of the lumbar spine. ? FINDINGS: ? Whole-body planar images: Paranasal and odontogenic uptake is likely ? inflammatory. A photopenic defect is present from remote right total ? knee arthroplasty. Mild-moderate uptake along the right knee hardware ? is nonspecific (please correlate with radiographs if there is ? clinical concern for loosening). Mild-moderate degenerative uptake is ? also present in the contralateral left knee. Mild degenerative uptake ? is present in the shoulders, sternoclavicular joints, ankles and ? feet. There is no evidence of osseous metastatic disease. No abnormal ? soft tissue uptake is identified. ? SPECT CT images: ? There is ambiguity in the numbering of the lumbar levels. For the ? purposes of this dictation, we will state that there are 5 lumbar ? vertebral bodies with a transitional T12 vertebrae. ? Grade 1/2 anterolisthesis of L5 on S1 is again identified. The L5 ? pars are elongated and sclerotic bilaterally, which may reflect ? sequela of advanced degenerative changes or chronic partially healed ? pars defects. Although mild bilateral degenerative uptake is present ? at the L4-L5 and L5-S1 facets, no significant uptake is identified ? within the L5 pars itself. ? Increased radiotracer uptake associated with degenerative disease is ? present as follows: ? Discogenic uptake: ? T9-T10: Moderate right. ? T12-L1: Moderate right. ? L1-L2: Mild. ? L2-L3: Minimal left. ? L3-L4: Minimal. ? L4-L5: Mild-moderate. ? L5-S1: Minimal. ? Facet uptake: ? PAGE 1 ? Signed Report ? (CONTINUED) ? T12-L1: Minimal bilaterally. ? L1-L2: Mild bilaterally. ? L2-L3: Mild bilaterally. ? L3-L4: Mild-moderate left and mild right. ? L4-L5: Mild bilaterally, left greater than right. ? L5-S1: Mild bilaterally. ? Sacroiliac joint uptake: Mild, left greater than right. ? Low dose attenuation correction CT: Cholecystectomy clips. Extensive ? colonic diverticulosis. Small fat-containing umbilical hernia. ? Peripheral atherosclerotic disease ? IMPRESSION: ? 1. ??Ambiguity in the numbering of the lumbar levels, as described. ? 2. ??Grade 1/2 anterolisthesis of L5 on S1. L5 pars elongated and ? sclerotic bilaterally, which may reflect sequela of advanced ? degenerative changes or chronic partially healed pars defects. Mild ? degenerative uptake present at the L4-L5 and L5-S1 facets ? bilaterally, however no significant uptake at the L5 pars itself. ? 3. ??Mild-moderate multilevel thoracolumbar discogenic and facet ? uptake, as detailed above. ? REPORT SIGNED IN OTHER VENDOR SYSTEM 05/11/2017 ?Reported By: Tamir Gates MD ? CC: ? Transcribed Date/Time: 05/11/2017 (1458) ? Beader: HIS.[email or web address] ? Printed Date/Time: 12/15/2018 (0955) ? PAGE 2 ? Signed Report ? Procedure Note Tamir Gates MD - 05/04/2019 EXAM: NUCLEAR MEDICINE/BONE SPECT WITH WH EX. D/ (1220) CLINICAL INFORMATION: M54.17LUMBAR BACK PAIN W/RADICULOPATHY AFFECTING (R) LOWER EXTREMITY BONE SPECT WITH WHOLE BODY Signs and Symptoms/Comments: M54.17LUMBAR BACK PAINW/RADICULOPATHY AFFECTING (R) LOWER EXTREMITY. 56-year-old female with low backpain and presence of spondylolisthesis@L5-S1. Comparison: Lumbar spine radiographs on 04/07/2017. CT abdomenpelvis on 04/25/2013. Technique: After the intravenous administration of 20.0 mCi Tc-99m MDP, whole-body planar images were performed, followed by SPECT CT images of the lumbar spine. FINDINGS: Whole-body planar images: Paranasal and odontogenic uptake islikely inflammatory. A photopenic defect is present from remote righttotal knee arthroplasty. Mild-moderate uptake along the right kneehardware is nonspecific (please correlate with radiographs if there is clinical concern for loosening). Mild-moderate degenerative uptakeis also present in the contralateral left knee. Mild degenerativeuptake is present in the shoulders, sternoclavicular joints, ankles and feet. There is no evidence of osseous metastatic disease. Noabnormal soft tissue uptake is identified. SPECT CT images: There is ambiguity in the numbering of the lumbar levels. For the purposes of this dictation, we will state that there are 5 lumbar vertebral bodies with a transitional T12 vertebrae. Grade 1/2 anterolisthesis of L5 on S1 is again identified. The L5 pars are elongated and sclerotic bilaterally, which may reflect sequela of advanced degenerative changes or chronic partiallyhealed pars defects. Although mild bilateral degenerative uptake ispresent at the L4-L5 and L5-S1 facets, no significant uptake is identified within the L5 pars itself. Increased radiotracer uptake associated with degenerative diseaseis present as follows: Discogenic uptake: T9-T10: Moderate right. T12-L1: Moderate right. L1-L2: Mild. L2-L3: Minimal left. L3-L4: Minimal. L4-L5: Mild-moderate. L5-S1: Minimal. Facet uptake: PAGE 1 Signed Report (CONTINUED) T12-L1: Minimal bilaterally. L1-L2: Mild bilaterally. L2-L3: Mild bilaterally. L3-L4: Mild-moderate left and mild right. L4-L5: Mild bilaterally, left greater than right. L5-S1: Mild bilaterally. Sacroiliac joint uptake: Mild, left greater than right. Low dose attenuation correction CT: Cholecystectomy clips.Extensive colonic diverticulosis. Small fat-containing umbilical hernia. Peripheral atherosclerotic disease IMPRESSION: 1. Ambiguity in the numbering of the lumbar levels, as described. 2. Grade 1/2 anterolisthesis of L5 on S1. L5 pars elongated and sclerotic bilaterally, which may reflect sequela of advanced degenerative changes or chronic partially healed pars defects. Mild degenerative uptake present at the L4-L5 and L5-S1 facets bilaterally, however no significant uptake at the L5 pars itself. 3. Mild-moderate multilevel thoracolumbar discogenic and facet uptake, as detailed above. REPORT SIGNED IN OTHER VENDOR SYSTEM 05/11/2017 Reported By: Tamir Gates MD CC: Transcribed Date/Time: 05/11/2017 (1458) Beader: Printed Date/Time: 12/15/2018 (1796) PAGE 2 Signed Report Lisa Gipson NP IMG NM ORDERABLES documented in this encounter Visit Diagnoses Not on filedocumented in this encounter Care Teams [employer] Registrar Relationship Specialty Start Date End Date Kristopher Mcneill MD [address],[facility] [address] [place] [phone] PCP - General 09/28/12 05/24/19 documented as of this encounter
--- OUTSIDE RECORDS SUMMARY | 2024-03-05 15:39 | XMS_ITS | Encounter Summary ---
Author Organization [facility] Address [address] [place] [address] Care Team Providers Care Chute Puller Name Role Phone Kristopher Mcneill MD Primary Care Provider [phone] Encounter Details Date Type Department Care Team (Late st Contact Info) Description 09/30/2014 Historical Results Only [facility] - [facility] [place] Radiology Results [address] [place], [place] [id number] Michell Prescott, PRINTED CIRCUIT BOARD PCB DESIGNER [address] [facility], [address] [place] [address] Social History Tobacco Use Types Packs/Day Years Used Date Smoking Tobacco: Never Assessed Sex and Gender Information Value Date Recorded Sex Assigned at Not on file Gender Identity Not on file Sexual Orientation Not on file documented as of this encounter Plan of Treatment Not on file documented as of this encounter Procedures Procedure Name Priority Date/Time Associated Diagnosis Comments MA BREAST SCREENING AILIN BILATERAL 09/30/2014 10:11 EDT documented in this encounter Results * MA BREAST SCREENING AILIN BILATERAL (09/30/2014 10:11 EDT) Anatomical Region Laterality Modality Breast Bilateral Other 09/30/2014 10:1 1 EDT Narrative 10/02/2014 12:02 EDT ? EXAM: MAMMOGRAM/MAMMO BILATERAL SCREEN W ??EX. D/ (1011) ? CLINICAL INFORMATION: ? SCREENING ? COMPARISON: ? TECHNIQUE: ??Full field digital whole breast 2D and 3D CC and MLO views ? of both breasts were obtained. CAD technology was utilized. ? INDICATION: ??Screening ? FINDINGS: ??The fibroglandular patterns of the breasts are normal. ? There has been no change when compared to previous mammograms and ? there is no mammographic evidence of cancer. The breasts are of ? heterogeneous density, which limits the sensitivity of mammography for ? the detection of malignancy. ? FINAL ASSESSMENT: ??BILATERAL BREAST - Category 1 - Negative. Routine ?mammographic follow-up is recommended. ? These results will be communicated to your patient via a lay letter ? from Radiology. ??If any additional imaging is needed we will contact ? your patient directly. ? JSP:[email or web address] [email or web address] ?Reported By: Kristopher Harrison MD ? CC: ? Transcribed Date/Time: 10/02/2014 (1202) ? Philosophy Faculty Member: COLLEEN ? Printed Date/Time: 11/30/2018 (0941) ? PAGE 1 ? Signed Report ? Procedure Note Kristopher Harrison MD - 05/03/2019 EXAM: MAMMOGRAM/MAMMO BILATERAL SCREEN W EX. D/ (1011) CLINICAL INFORMATION: SCREENING COMPARISON: TECHNIQUE: Full field digital whole breast 2D and 3D CC and MLOviews of both breasts were obtained. CAD technology was utilized. INDICATION: Screening FINDINGS: The fibroglandular patterns of the breasts are normal. There has been no change when compared to previous mammograms and there is no mammographic evidence of cancer. The breasts are of heterogeneous density, which limits the sensitivity of mammographyfor the detection of malignancy. FINAL ASSESSMENT: BILATERAL BREAST - Category 1 - Negative.Routine mammographic follow-up is recommended. These results will be communicated to your patient via a lay letter from Radiology. If any additional imaging is needed we willcontact your patient directly. JSP:[email or web address] Reported By: Kristopher Harrison MD CC: Transcribed Date/Time: 10/02/2014 (1202) Philosophy Faculty Member: COLLEEN Printed Date/Time: 11/30/2018 (7240) PAGE 1 Signed Report Michell Prescott PRINTED CIRCUIT BOARD PCB DESIGNER IMG MAMMOGRAPHY MEENA BRAUN documented in this encounter Visit Diagnoses Not on filedocumented in this encounter Care Teams Chute Puller Relationship Specialty Start Date End Date Kristopher Mcneill MD [address],[facility] [address] [place] [phone] PCP - General 09/28/12 05/24/19 documented as of this encounter
--- OUTSIDE RECORDS SUMMARY | 2024-03-05 15:39 | XMS_ITS | Encounter Summary ---
Author Organization [facility] Address [address] [place] [address] Care Team Providers Care Section Leader Screen Printing Name Role Phone Shelia Harrison MINE MANAGER Primary Care Provider [phone] Rebecca Giles APRN Primary Care Provider [phone] Encounter Details Date Type Department Care Team (Late st Contact Info) Description 07/29/2019 Lab Requisition [facility] Pathology & Laboratory Medicine - [address] [address] Unknown, Provider, Social History Tobacco Use Types Packs/Day Years Used Date Smoking Tobacco: Never Assessed Sex and Gender Information Value Date Recorded Sex Assigned at Not on file Gender Identity Not on file Sexual Orientation Not on file documented as of this encounter Plan of Treatment Not on file documented as of this encounter Procedures Procedure Name Priority Date/Time Associated Diagnosis Comments RHEUMATOID FACTOR Routine 07/28/2019 18: 40 EST documented in this encounter Results * RHEUMATOID FACTOR (07/28/2019 18:40 EST) Rheumatoid Factor 9.0 <12.5 IU/mL 08/01/2019 11:57 EST [facility] Blood VENOUS BLOOD / Unknown 07/28/2019 18:40 EST 07/29/2019 16:20 EST Provider Unknown CHEMISTRY & BLOOD GA S ORDERABLES [facility] [address] [place] [address] documented in this encounter Visit Diagnoses Not on filedocumented in this encounter Care Teams Section Leader Screen Printing Relationship Specialty Start Date End Date Shelia Harrison NP PCP - General 05/25/19 08/09/19 Rebecca Giles APRN PCP - General Family Medicine - [facility] Medicine 08/10/19 documented as of this encounter
--- OUTSIDE RECORDS SUMMARY | 2024-03-05 15:39 | XMS_ITS | Encounter Summary ---
Author Organization [facility] Address [address] [place] [address] Care Team Providers Care Tongue Carrier Name Role Phone Kristopher Mcneill MD Primary Care Provider [phone] Encounter Details Date Type Department Care Team (Latest Contact Info) Description 04/25/2013 10:22 EDT - 04/25/2013 23:59 EDT Hospital Encounter [facility] - [address] [address] Unknown, Provider, Discharge Disposition: Home or Self Care Social History Tobacco Use Types Packs/Day Years Used Date Smoking Tobacco: Never Assessed Sex and Gender Information Value Date Recorded Sex Assigned at Not on file Gender Identity Not on file Sexual Orientation Not on file documented as of this encounter Discharge Disposition Disposition Code Departure Means Destination Home or Self Snf documented in this encounter Plan of Treatment Not on file documented as of this encounter Visit Diagnoses Not on filedocumented in this encounter Care Teams Tongue Carrier Relationship Specialty Start Date End Date Kristopher Mcneill MD [facility] [address] ,[facility] [address] [place] [phone] PCP - General 09/28/12 05/24/19 documented as of this encounter
--- OUTSIDE RECORDS SUMMARY | 2024-03-05 15:39 | XMS_ITS | Encounter Summary ---
Author Organization [facility] Address [address] [place] [address] Care Team Providers Care Feeder/Folder Name Role Phone Rebecca Giles Miriam THORNE Primary Care Provider [phone] Encounter Details Date Type Department Care Team (Late st Contact Info) Description 12/12/2022 Lab Requisition [facility] Pathology & Laboratory Medicine - [facility] [address] [place] [address] Outr Resulting Lab, Provider Social History Tobacco Use Types Packs/Day Years [...] Procedure Name Priority Date/Time Associated Diagnosis Comments LYME AB Routine 12/11/2022 20:10 EDT documented in this encounter Results * LYME AB (12/11/2022 20:10 EDT) Lyme Ab Negative Negative 12/15/2022 10:22 EDT [facility] Blood VENOUS BLOOD / Unknown 12/11/2022 20:10 EDT 12/12/2022 19:58 EDT Provider Outr Resulting Lab IMMUNOLOGY A ND SEROLOGY ORDERABLES Performing Organization Address [facility]/State/ZIP Co de Phone Number [facility] [address] [place] [address] documented in this encounter Visit Diagnoses Not on filedocumented in this encounter Care Teams Feeder/Folder Relationship Specialty Start Date End Date Rebecca Giles APRN PCP - General Family Medicine - Hospital Medicine 08/10/19 documented as of this encounter
--- OUTSIDE RECORDS SUMMARY | 2024-03-05 15:39 | XMS_ITS | Encounter Summary ---
Author Organization [facility] Address [address] [place] [address] Care Team Providers Care Anatomic Pathology Assistant Name Role Phone Kristopher Mcneill MD Primary Care Provider [phone] Encounter Details Date Type Department Care Team (Late st Contact Info) Description 01/01/2016 Historical Results Only [facility] - [facility] Radiology Results [address] [place], [place] [phone] Michell Prescott, STITCH BONDING MACHINE OPERATOR [address] [facility], [address] [place] [address] Social History Tobacco Use Types [...] Diagnosis Comments MA BREAST SCREENING AILIN BILATERAL 01/01/2016 11:25 EDT documented in this encounter Results * MA BREAST SCREENING AILIN BILATERAL (01/01/2016 [...] CC: ? Transcribed Date/Time: 01/03/2016 (0900) ? Installation Engineer: JENNY ? Printed Date/Time: 12/09/2018 (2220) ? PAGE 1 ? Signed Report ? Procedure Note Kristopher Harrison MD - 05/04/2019 EXAM: MAMMOGRAM/MAMMO BILATERAL SCREEN W EX. D/ (1122) CLINICAL INFORMATION: Z12.39 SCREENING RACHEL TECHNIQUE: Full [...] Harrison MD CC: Transcribed Date/Time: 01/03/2016 (0900) Installation Engineer: JENNY Printed Date/Time: 12/09/2018 (3377) PAGE 1 Signed Report Michell Prescott STITCH BONDING MACHINE OPERATOR IMG MAMMOGRAPHY MEENA BRAUN documented in this encounter Visit Diagnoses Not on filedocumented in this encounter Care Teams Anatomic Pathology Assistant Relationship Specialty Start Date End Date Kristopher Mcneill MD [facility] [address],[facility] [address] [place] [phone] PCP - General 09/28/12 05/24/19 documented as of this encounter
--- OUTSIDE RECORDS SUMMARY | 2024-03-05 15:39 | XMS_ITS | Encounter Summary ---
Author Organization [facility] Address [address] [place] [address] Care Team Providers Care Laborer Pipelines Name Role Phone Shelia Harrison CAPACITOR ASSEMBLER Primary Care Provider [phone] Rebecca Giles APRN Primary Care Provider [phone] Encounter Details Date Type Department Care Team (Late st Contact Info) Description 06/29/2019 Lab Requisition [facility] Pathology & Laboratory Medicine - [address] [address] Unknown, Provider, Social History Tobacco Use Types Packs/Day Years Used Date Smoking Tobacco: Never Assessed Sex and Gender Information Value Date Recorded Sex Assigned at Not on file Gender Identity Not on file Sexual Orientation Not on file documented as of this encounter Plan of Treatment Not on file documented as of this encounter Procedures Procedure Name Priority Date/Time Associated Diagnosis Comments HEPATITIS B SURFACE ANTIBODY Routine 06/28/2019 21:41 EST documented in this encounter Results * HEPATITIS B SURFACE ANTIBODY (06/28/2019 21:41 EST) Hep B Surface Ab, Quantitative >1,000.0 See Note mIU/mL 07/01/2019 10:02 EST [facility] Comment: Reference Range for Hep B Surface Ab, Quant: Positive: >= 10.0 mIU/mL Negative: ??< 10.0 mIU/mL Patient is presumed to be immune to infection with Hepatitis B Virus. Hep B Surface Ab, Qualitative Positive See Note 07/01/2019 10:02 EST [facility] Comment: Reference Range for Hep B Surface Ab, Qual: Unvaccinated: ??Negative Vaccinated: ??Positive Blood VENOUS BLOOD / Unknown 06/28/2019 21:41 EST 06/30/2019 15:58 EST Provider Unknown CHEMISTRY & BLOOD GA S ORDERABLES Performing Organization Address City/State/[facility] Co de Phone Number [facility] [address] [place] [address] documented in this encounter Visit Diagnoses Not on filedocumented in this encounter Care Teams Laborer Pipelines Relationship Specialty Start Date End Date Shelia Harrison NP PCP - General 05/25/19 08/09/19 Rebecca Giles APRN PCP - General Family Medicine [facility] [place] 08/10/19 documented as of this encounter
--- OUTSIDE RECORDS SUMMARY | 2024-03-05 15:39 | XMS_ITS | Encounter Summary ---
Author Organization [facility] Address [address] [place] [address] Care Team Providers Care Psychologist Social Name Role Phone Rebecca Giles Miriam THORNE Primary Care Provider [phone] Encounter Details Date Type Department Care Team (Late st Contact Info) Description 07/30/2023 Lab Requisition [facility] Pathology & Laboratory Medicine - [facility] [address] [place], [place] [address] Outr Resulting Lab, Provider Social History Tobacco [...] Procedure Name Priority Date/Time Associated Diagnosis Comments H. PYLORI ANTIGEN Routine 07/30/2023 10: 24 EST documented in this encounter Results * (ABNORMAL) H. PYLORI ANTIGEN (07/30/2023 10:24 EST) H. Pylori Positive( A) Negative 07/31/2023 13:[address] [facility] Comment:Indicates the presen ce of detectable H. pylori stool antigen. Feces SPECIMEN FROM RECTUM / Unknown 07/30/2023 10:24 EST 07/30/2023 20:57 EST Narrative [facility] - 07/31/2023 13:22 EST New Liaison XL testing method used as of 04/20/2023 Provider Outr Resulting Lab MICROBIOLOGY - GENERAL ORDERABLES [facility] [address] [place] [address] documented in this encounter Visit Diagnoses Not on filedocumented in this encounter Care Teams Psychologist Social Relationship Specialty Start Date End Date Rebecca Giles APRN PCP - General Family Medicine - Hospital Medicine 08/10/19 documented as of this encounter
--- OUTSIDE RECORDS SUMMARY | 2024-03-05 15:39 | XMS_ITS | Encounter Summary ---
Author Organization [facility] Address [address] [place] [address] Care Team Providers Care Differential Tester Name Role Phone Kristopher Mcneill MD Primary Care Provider [phone] Encounter Details Date Type Department Care Team (Late st Contact Info) Description 03/18/2017 Historical Results Only [facility] Lab - Main [place] [address] [place], [place] [address] Shelia Harrison, GUERLINE [address] [place] [phone] Social History Tobacco Use Types Packs/Day Years Used Date Smoking Tobacco: Never Assessed Sex and Gender Information Value Date Recorded Sex Assigned at Not on file Gender Identity Not on file Sexual Orientation Not on file documented as of this encounter Plan of Treatment Not on file documented as of this encounter Procedures Procedure Name Priority Date/Time Associated Diagnosis Comments HEPATITIS C AB W REFLEX TO HCV RNA BY PCR Routine 03/18/2017 11:55 EDT TSH Routine 03/18/2017 11:55 EDT documented in this encounter Results * TSH (03/18/2017 11:55 EDT) THYROID STIM H[place]ONE [place] [facility] [place] 0.71 0.35 - 5.50 uIU/mL 03/18/2017 15:43 EDT [facility] 03/18/2017 11:5 5 EDT 03/18/2017 14:56 EDT Shelia [place] Anti DOUGH PANNER CHEMISTRY & BLOOD G ORDERABLES Performing Organization Address City/[facility]/ZIP Co de Phone Number [facility] * HEPATITIS C AB W REFLEX TO HCV RNA BY PCR (03/18/2017 11:55 EDT) HEPATITIS C AB W/REFLEX - [facility] [place] Negative 03/18/2017 16:23 EDT [facility] Comment:Expected Values: Neg ative. 03/18/2017 11:5 5 EDT 03/18/2017 14:56 EDT Shelia Bennett Anti DOUGH PANNER CHEMISTRY & BLOOD G ORDERABLES Performing Organization Address [facility] Co de Phone Number [facility] documented in this encounter Visit Diagnoses Not on filedocumented in this encounter Care Teams Differential Tester Relationship Specialty Start Date End Date Kristopher Mcneill MD [facility] [address],[facility] [address] [place] [phone] PCP - General 09/28/12 05/24/19 documented as of this encounter
--- OUTSIDE RECORDS SUMMARY | 2024-03-05 15:39 | XMS_ITS | Encounter Summary ---
Author Organization [facility] Address [address] [place] [address] Care Team Providers Care Detasseler Name Role Phone Kristopher Mcneill MD Primary Care Provider [phone] Shelia Harrison NP Primary Care Provider [phone] Encounter Details Date Type Department Care Team (Late st Contact Info) Description 07/11/2009 Historical Results Only [facility] - [facility] [place] Lab - Main [place] [address] [place] [phone] Coretta Flowers MD [address] [place] [address], [address] [place] [address] Social History Tobacco Use Types [...] Date/Time Associated Diagnosis Comments SURGICAL PATHOLOGY Routine 07/11/2009 documented in this encounter Results * SURGICAL PATHOLOGY (07/11/2009) 07/11/2009 07/11/2009 13: 36 EST Narrative [facility] - 07/12/2009 12:29 EST PREOP MENOMETRORRHAGIA Procedure: ENDOMETRIAL BIOPSY Tissue Removed ENDOMETRIAL TISSUE LMP: Prev.Abn Pap: 06/28/2009 ----- ------- Name: KANDY SEYMOUR ?: 62 ?Age/Sex: 58/F ?Unit#: [id number] ? Loc: AGO ? Status: REG POV ?? Reg Date: 07/11/09 ? Pt.Phone Number: ? ----- ------- Specimen: [id number] ?STATUS: SOUT ?Spec Date:07/11/09 ? Physician Copies: ?Coretta Flowers MD ?? Tissues: A ?? Female Reproductive System (ENDOMETRIUM) ? Tonya Graham CPT: 09899 ?? Units: ??1 ?FINAL DIAGNOSIS ? Endometrium, biopsy; ? - Proliferative endometrium. ? Focal stromal hemorrhage, nonspecific. ? One small fragment showing irregular architecture may be polypoid. ? GROSS DESCRIPTION ? Received in formalin and designated endometrial currettings is a 1.5 cc ? volume of pink-meade fibromucosal tissue fragments and fragments of yellow- brown ? hemorrhagic blood. ??The specimen is entirely submitted. BT ?? PREOP DX/CLINICAL HISTORY ?Menometrorrhagia Signed ____(signature on file)____ Miguel Bowser M.D. 07/12/09 ?? By the signature above, the attending physician certifies that he/she has personally conducted a gross and/or microscopic examination of the described specimens and rendered or confirmed the above diagnosis. Test Performed by [facility], [address] [place] [address] Director Hydrogen Storage Engineering: Tania Leiva MD PHD ----- ------- Coretta Flowers MD PATHOLOGY ORDERABLES Performing Organization Address City/State/[facility] Co ny Phone Number [facility] documented in this encounter Visit Diagnoses Not on filedocumented in this encounter Care Teams Detasseler Relationship Specialty Start Date End Date Kristopher Mcneill MD [address] [place] [address] PCP - General 09/28/12 05/24/19 Shelia Harrison NP [address] [place] [address] PCP - General 05/25/19 08/09/19 documented as of this encounter
--- OUTSIDE RECORDS SUMMARY | 2024-03-05 15:39 | XMS_ITS | Encounter Summary ---
Author Organization [facility] Address [address] [place] [address] Care Team Providers Care Generation Technician Name Role Phone Rebecca Giles Miriam THORNE Primary Care Provider [phone] Encounter Details Date Type Department Care Team (Late st Contact Info) Description 08/11/2020 Lab Requisition [facility] Pathology & Laboratory Medicine - [facility] [address] [place] [address] Ana Kruger [address] [place] [phone] Encounter for other general examination Social History Tobacco Use Types Packs/Day Years [...] Priority Date/Time Associated Diagnosis Comments SURGICAL PATHOLOGY Today 08/10/2020 15 :50 EST Encounter for other general examination documented in this encounter Results * SURGICAL PATHOLOGY (08/10/2020 15:50 EST) Final Diagnosis A. ENDOMETRIUM, BIOPSY: - Inactive endometrium. B. ENDOCERVIX, POLYP, BIOPSY: - Benign endocervical polyp. 08/14/2020 13:35 EST [facility] Attestation By the signature below, the attending physician certifies that they have 1) personally conducted a gross and/or microscopic examination of the described specimen(s), and/or personally interpreted the results of laboratory testing of the described specimen(s), and 2) personally rendered or confirmed the above diagnosis. 08/14/2020 13:35 [facility] at 1335 Clinical History Postmenopausal bleeding, endocervical polyp 08/14/2020 13:35 [facility] Gross Description A. Received in formalin labelled with proper patient identification (initials D, G) and endometrium is an aggregate of blood clot and opaque mucus, 1.5 x 1.5 x 1.0 cm. Entirely submitted in A1-A2. B. Received in formalin labelled with proper patient identification (initials D, G) and endocervical polyp is a meade-gregorio irregular soft tissue, 0.8 x 0.8 x 0.2 cm with admixed opaque mucus. DECLAN ANNE(ASCP) 08/13/2020 8:29 08/14/2020 13:35 [facility] Performing Lab [facility] 08/14/2020 13:35 [facility] Scanned Images 08/14/2020 13:35 [facility] Tissue ENTIRE ENDOCERVIX / Unknown 08/10/2020 15:50 EST 08/11/2020 10:27 EST Tissue specimen (specimen) ENDOCERVICAL STRUCTURE / Unknown 08/10/2020 15:50 EST 08/11/2020 10:27 EST Ana Kruger PATHOLOGY ORDERABLES [facility] [address] [place] [address] documented in this encounter Visit Diagnoses Diagnosis Encounter for other general examination documented in this encounter Care Teams Generation Technician Relationship Specialty Start Date End Date Rebecca Giles APRN PCP - General Family Medicine - Hospital Medicine 08/10/19 documented as of this encounter
--- OUTSIDE RECORDS SUMMARY | 2024-03-05 15:39 | XMS_ITS | Encounter Summary ---
Author Organization [facility] Address [address] [place] [address] Care Team Providers Care Harp Repairer Name Role Phone Kristopher Mcneill MD Primary Care Provider [phone] Encounter Details Date Type Department Care Team (Latest Contact Info) Description 02/16/2017 14:25 EDT - 02/16/2017 23:59 EDT Hospital Encounter [facility] [address] [place] [address] Unknown, Provider, Discharge Disposition: Home or Self Care Social History Tobacco Use Types Packs/Day Years Used Date Smoking Tobacco: Never Assessed Sex and Gender Information Value Date Recorded Sex Assigned at Not on file Gender Identity Not on file Sexual Orientation Not on file documented as of this encounter Discharge Disposition Disposition Code Departure Means Destination Home or Self Fci documented in this encounter Plan of Treatment Not on file documented as of this encounter Visit Diagnoses Not on filedocumented in this encounter Care Teams Harp Repairer Relationship Specialty Start Date End Date Kristopher Mcneill MD [facility] [address],[facility] [address] [place] [phone] PCP - General 09/28/12 05/24/19 documented as of this encounter
--- OUTSIDE RECORDS SUMMARY | 2024-03-05 15:39 | XMS_ITS | Encounter Summary ---
Author Organization [facility] Address [address] [place] [address] Care Team Providers Care Flight Attendant Inflight Services Name Role Phone Kristopher Mcneill MD Primary Care Provider Encounter Details Date Type Department Care Team (Late st Contact Info) Description 11/06/2015 Historical Results Only [facility] [place] [address], [place] [id number] Dylan Kenyon MD [address] [facility] [address] [place], [place] [address] Social History Tobacco Use Types Packs/Day Years Used Date Smoking Tobacco: Never Assessed Sex and Gender Information Value Date Recorded Sex Assigned at Not on file Gender Identity Not on file Sexual Orientation Not on file documented as of this encounter Plan of Treatment Not on file documented as of this encounter Procedures Procedure Name Priority Date/Time Associated Diagnosis Comments XR LEG LENGTH EVALUATION (PRE AND POST OP) 11/06/2015 19:09 EDT documented in this encounter Results * XR LEG LENGTH EVALUATION (PRE AND POST OP) (11/06/2015 19:09 EDT) Anatomical Region Laterality Modality Lower Extremities Other 11/06/2015 19:0 9 EDT Narrative 11/06/2015 19:19 EDT ? EXAM: RADIOLOGY/LEG ALIGNMENT SERIES ?EX. D/ (1110) ? CLINICAL INFORMATION: ? LONG LEG ALIGNMENT RT KNEE, OA PRE-OP TKR ? LEG ALIGNMENT SERIES ??11/06/2015 11:10 AM ? Clinical History/Comments: LONG LEG ALIGNMENT RT KNEE, OA PRE-OP TKR. ? Findings: ? Bone length was determined for the lower extremities by measuring the ? distance from the superior aspect of the femoral head to the middle ? of the distal tibial plafond on both sides. The length of the femur ? was measured between the superior aspect of the femoral head to the ? middle of the medial femoral condyle on both sides. The length of the ? tibia was measured between the middle of the medial tibial plateau to ? the middle of the distal tibial plafond on both sides. ? There is severe right medial tibiofemoral compartment osteoarthrosis. ? The right medial tibial plateau demonstrates lateral translation with ? respect to the medial femoral condyle. There is an elongated osseous ? excrescence extending from L5 to the left iliac crest. Tubal ligation ? clips project over the pelvis. Surgical clips project over the right ? upper quadrant. ? Right lower extremity = 85.2 cm ? Right femur = 47.7 cm ? Right tibia = 36.9 cm ? The mechanical axis of the right lower extremity is passing approx. ? 4.7 cm medial to the midpoint of the tibial spines ? Left lower extremity = 86.0 cm ? Left femur = 48.2 cm ? Left tibia = 37.5 cm ? The mechanical axis of the left lower extremity is passing approx. ? 1.2 cm medial to the midpoint of the tibial spines ? REPORT SIGNED IN OTHER VENDOR SYSTEM 11/06/2015 ?Reported By: Hussain Ardon MD ? CC: ? Transcribed Date/Time: 11/06/2015 (1919) ? Coating Mixer Supervisor: ? Printed Date/Time: 12/09/2018 (2223) ? PAGE 1 ? Signed Report ? Procedure Note Hussain Ardon MD - 05/04/2019 EXAM: RADIOLOGY/LEG ALIGNMENT SERIES EX. D/ (1110) CLINICAL INFORMATION: LONG LEG ALIGNMENT RT KNEE, OA PRE-OP TKR LEG ALIGNMENT SERIES 11/06/2015 11:10 AM Clinical History/Comments: LONG LEG ALIGNMENT RT KNEE, OA PRE-OPTKR. Findings: Bone length was determined for the lower extremities by measuringthe distance from the superior aspect of the femoral head to the middle of the distal tibial plafond on both sides. The length of the femur was measured between the superior aspect of the femoral head to the middle of the medial femoral condyle on both sides. The length ofthe tibia was measured between the middle of the medial tibial plateauto the middle of the distal tibial plafond on both sides. There is severe right medial tibiofemoral compartmentosteoarthrosis. The right medial tibial plateau demonstrates lateral translationwith respect to the medial femoral condyle. There is an elongatedosseous excrescence extending from L5 to the left iliac crest. Tuballigation clips project over the pelvis. Surgical clips project over theright upper quadrant. Right lower extremity = 85.2 cm Right femur = 47.7 cm Right tibia = 36.9 cm The mechanical axis of the right lower extremity is passing approx. 4.7 cm medial to the midpoint of the tibial spines Left lower extremity = 86.0 cm Left femur = 48.2 cm Left tibia = 37.5 cm The mechanical axis of the left lower extremity is passing approx. 1.2 cm medial to the midpoint of the tibial spines REPORT SIGNED IN OTHER VENDOR SYSTEM 11/06/2015 Reported By: Hussain Ardon MD CC: Transcribed Date/Time: 11/06/2015 (1918) Coating Mixer Supervisor: Printed Date/Time: 12/09/2018 (1284) PAGE 1 Signed Report Dylan Kenyon MD IMG DIAGN OSTIC IMAGING ORDERABLES documented in this encounter Visit Diagnoses Not on filedocumented in this encounter Care Teams Flight Attendant Inflight Services Relationship Specialty Start Date End Date Kristopher Mcneill MD [facility] JOVANNY SCHMIDT,[facility] [address] [place] [address] PCP - General 09/28/12 05/24/19 documented as of this encounter
--- OUTSIDE RECORDS SUMMARY | 2024-03-05 15:39 | XMS_ITS | Encounter Summary ---
Author Organization [facility] Address [address] [place] [address] Care Team Providers Care Windows Security Engineer Name Role Phone Rebecca Giles Miriam THORNE Primary Care Provider [phone] Encounter Details Date Type Department Care Team (Late st Contact Info) Description 08/13/2020 Lab Requisition [facility] Pathology & Laboratory Medicine - [facility] [address] [place] [address] Ana Kruger [address] [place] [address] [place] [phone] Encounter for other general examination Social History [...] 15:00 EST Encounter for other general examination HPV DNA DETECTION WITH GENOTYPING, PCR Today 08/10/2020 15:00 EST Encounter for other general examination documented in this encounter Results * HUMAN PAPILLOMAVIRUS (HPV) DETECTION-HIGH RISK TYPES (08/10/2020 15:00 EST) HPV other High Risk types, PCR Negative Negative 08/23/2020 7:46 [facility] Comment:No E6 or E7 mRNA is detected from HPV types 16,18,31,33,35,39,45,51,52,56,58,59,66, and [address] mediated amplification. Papanicolaou smear specimen (specimen) CERVIX UTERI STRUCTURE / Unknown 08/10/2020 15:00 EST 08/17/2020 13:30 EST Ana Kruger MICROBIOLOGY - GENER AL ORDERABLES [facility] [address] [place] [address] * PAP TEST (08/10/2020 15:00 EST) Specimens A. Cervix and/or Endocervix , ThinPrep Imaging System with Manual Evaluation 08/23/2020 7:46 [facility] Specimen Adequacy Satisfactory for Evaluation - transformation zone component present 08/23/2020 7:46 [facility] General Categorization Negative for intraepithelial lesion or malignancy 08/23/2020 7:46 [facility] Attestation . 08/23/2020 7:46 [facility] at 0745 Clinical History See below 08/23/19 7:46 [facility] HPV The result for the Human Papillomavirus (HPV) Detection-High Risk Types is Negative. No E6 or E7 mRNA is detected from HPV types 16,18,31,33,35,39 ,45,51,52,56,58,5 9,66, and [address] mediated amplification[address]Divya ting was performed on specimen [id number] and was resulted on 08/23/2020 0710 EST by GORGE, LAB INSTRUMENT RESULTS IN 08/23/2020 7:46 [facility] Performing Lab [facility] 08/23/2020 7:46 [facility] Scanned Images 08/23/2020 7:46 [facility] Papanicolaou smear specimen (specimen) CERVIX UTERI STRUCTURE / Unknown 08/10/2020 15:00 EST 08/13/2020 14:56 EST Ana Kruger PATHOLOGY ORDERABLES [facility] [address] [place] [address] documented in this encounter Visit Diagnoses Diagnosis Encounter for other general examination documented in this encounter Care Teams Windows Security Engineer Relationship Specialty Start Date End Date Rebecca Giles APRN PCP - General Family Medicine - Hospital Medicine 08/10/19 documented as of this encounter
--- OUTSIDE RECORDS SUMMARY | 2024-03-05 15:39 | XMS_ITS | Encounter Summary ---
Author Organization [facility] [place] [address] Care Team Providers Care Speech Scientist Name Role Phone Unavailable Primary Care Provider Unavailabl e Encounter Details Date Type Department Care Team (Late st Contact Info) Description 04/27/2006 Ancillary Procedure Radiology Library at [facility] [place] [phone] Rebecca Giles APRN [address] [place] [address] Social History Tobacco Use Types Packs/Day Years [...] Comments FILM LIBRARY-STORAGE ONLY US BREAST Routine 04/27/2006 12:00 AM EST documented in this encounter Results * Film Library Storage Only US Breast (04/27/2006 12:00 AM EST) Narrative [facility] - 06/11/2020 2:09 PM EST This exam is auto-finalizing. It's purpose is for storage only. Rebecca Giles APRN IMG FILM LIBRARY OR DERABLES [facility] [place], [place] documented in this encounter Visit Diagnoses Not on filedocumented in this encounter
--- OUTSIDE RECORDS SUMMARY | 2024-03-05 15:39 | XMS_ITS | Encounter Summary ---
Author Organization [facility] Address [address] [place] [address] Care Team Providers Care Patient Service Associate Name Role Phone Kristopher Mcneill MD Primary Care Provider [phone] Encounter Details Date Type Department Care Team (Latest Contact Info) Description 05/07/2015 12:50 EST - 05/07/2015 23:[address] [facility] Hospital Encounter [address] [address] Unknown, Provider, Discharge Disposition: Home or Self Care Social History Tobacco Use Types Packs/Day Years Used Date Smoking Tobacco: Never Assessed Sex and Gender Information Value Date Recorded Sex Assigned at Not on file Gender Identity Not on file Sexual Orientation Not on file documented as of this encounter Discharge Disposition Disposition Code Departure Means Destination Home or Self Penitentiary documented in this encounter Plan of Treatment Not on file documented as of this encounter Visit Diagnoses Not on filedocumented in this encounter Care Teams Patient Service Associate Relationship Specialty Start Date End Date Kristopher Mcneill MD [facility] JOVANNY SCHMIDT,[facility] [address] [place] [phone] PCP - General 09/28/12 05/24/19 documented as of this encounter
--- OUTSIDE RECORDS SUMMARY | 2024-03-05 15:39 | XMS_ITS | Encounter Summary ---
Author Organization [facility] Address [address] [place] [address] Care Team Providers Care Consulting Sme Name Role Phone Rebecca Giles Miriam THORNE Primary Care Provider [phone] Encounter Details Date Type Department Care Team (Late st Contact Info) Description 07/01/2023 Lab Requisition [facility] Pathology & Laboratory Medicine - [facility] [address] [place] [address] Sima Sweet MD [address] [place] [phone] Encounter for other preprocedural examination Social History Tobacco Use Types Packs/Day [...] Date/Time Associated Diagnosis Comments SURGICAL PATHOLOGY Today 07/01/2023 11 :17 EST Encounter for other preprocedural examination documented in this encounter Results * SURGICAL PATHOLOGY (07/01/2023 11:17 EST) Note to Patient The following pathology results have been interpreted by your pathologist and may be available to you before your health provider has had the opportunity to review them. Please allow time for your provider to receive these results and explore management options, if applicable. 4 15:05 [facility] Final Diagnosis A. ENDOMETRIUM, POLYP, CURETTAGE: - Fragments with endometrial polyp with focal gland crowding. See comment. - No definitive cytologic atypia identified. 4 15:05 [facility] Diagnosis Comment Immunohistochemistry for PAX-2 (EP235, Cell Gt) (A2) shows retained staining. NOTE: One or more of the reagents used in immunoperoxidase testing in this case may not have been cleared or approved by the U.S. Food and Drug Administration (FDA). The FDA has determined that such clearance or approval is not necessary. These tests are used for clinical purposes. They should not be regarded as investigational or for research. These reagents' performance characteristics have been determined by [facility] and/or by the referring laboratory. The positive and negative controls worked appropriately. If immunoperoxidase staining has been performed on alcohol fixed cytology specimens, which has not been fully validated, the assays should be interpreted with caution and correlated with clinical data. This laboratory is certified under the Clinical Laboratory Improvement Amendments of 1988 (CLIA-88) as qualified to perform high complexity clinical laboratory testing.? 4 15:05 [facility] Attestation There was significan t resident/fellow involvement in the diagnostic evaluation of this case. By the signature below, the attending physician certifies that they have personally conducted a gross and/or microscopic examination of the described specimens and rendered or confirmed the above diagnosis. 4 15:05 [facility] at 1505 Clinical History Postmenopausal bleeding, uterine polyps 4 15:05 [facility] Gross Description A. Received in formalin labelled with proper patient identification (initials D, G) and endometrial curettings and uterine polyp is a 4.1 x 3.8 x 1.1 cm aggregate of pink-meade to white soft tissue. The specimen is entirely submitted in A1-A3. DECLAN GARCES(ASCP) 07/01/2023 16:46 4 15:05 [facility] Resident/Fell ow: Kacie Lou MD 4 15:05 EST [facility] Performing Lab [facility] 4 15:05 EST [facility] Scanned Images 4 15:05 EST [facility] Tissue ENDOMETRIAL STRUCTURE / Unknown 07/01/2023 11:17 EST 07/01/2023 16:29 EST Sima Sweet MD PATHOLOGY ORDERABLES [facility] [address] [place] [address] documented in this encounter Visit Diagnoses Diagnosis Encounter for other preprocedural examination documented in this encounter Care Teams Consulting Sme Relationship Specialty Start Date End Date Rebecca Giles APRN PCP - General Family Medicine - [facility] Medicine 08/10/19 documented as of this encounter
--- OUTSIDE RECORDS SUMMARY | 2024-03-05 15:39 | XMS_ITS | Encounter Summary ---
Author Organization [facility] Address [address] [place] [address] Care Team Providers Care Naval Police Coxswain Name Role Phone Kristopher Mcneill MD Primary Care Provider [phone] Encounter Details Date Type Department Care Team (Late st Contact Info) Description 12/14/2015 Historical Results Only [facility] [place] [facility] - [place] [address] [place] [address] Michell Prescott, ZIPPER SETTER LOCKSTITCH [address] [facility], [address] [place] [address] Social History Tobacco Use Types [...] Date/Time Associated Diagnosis Comments PAP TEST Routine 12/14/2015 10:26 EDT documented in this encounter Results * PAP TEST (12/14/2015 10:26 EDT) 12/14/2015 10:2 6 EDT 12/17/2015 10:26 EDT Narrative [facility] - 12/21/2015 15:34 EDT ----- ------- Name: KANDY SEYMOUR ?: [birth year] ?Age/Sex: 58/F ?Unit#: [id number] ? Loc: AGO ? Status: REG POV ?? Reg Date: 12/14/15 ? Pt.Phone Number: ? ----- ------- Specimen: [id number] ?STATUS: SOUT ?Spec Date:12/14/15 ? Physician Copies: ?Michell Prescott ? Tissues: ? Cervical/Endo Pap ?AntiShelia APRN ?? CPT: 93976 ?? Units: ??1 ----- ------- ? CYTOLOGY DIAGNOSIS SPECIMEN ADEQUACY: ?Satisfactory for evaluation. Transformation zone component present. GENERAL CATEGORIZATION: ?Negative for Intraepithelial Lesion or Malignancy DESCRIPTIVE DIAGNOSIS: ? Negative for Intraepithelial Lesion or Malignancy. ----- ------- ?HPV DNA RESULTS ?? 12/14/15 1027 HPV DNA RESULT ??NEG ? Negative for HPV types 16, 18, 31, 33, 35, 39, 45, 51, 52, ? 56, 58, 59, 66, 68. ? Method: Cervista HPV HR (High Risk) DNA test. ----- ------- ORDER QUERIES: LMP: 2012 ?- MENOPAUSE ? N Post ? N ??PREVIOUS ATYPICAL: N BCP/HRT? N Rad Rx? N IUD? N ??PAP PLUS HPV? Y ??REFLEX TO HR-HPV IF ASCUS N REFLEX TO HPV 16/18 IF HPV POS/PAP NEG N HPV REGARDLESS? N ??RFLX HPV IF LSIL ?? Signed Angelica Manzo CT(ASCP) 12/21/15 By the signature above, the attending physician certifies that he/she has personally conducted a gross and/or microscopic examination of the described specimens and rendered or confirmed the above diagnosis. Test Performed by [facility], [address] [place] [id number] Auto Tech: Tania Leiva MD PHD ----- ------- Michell Prescott ZIPPER SETTER LOCKSTITCH PATHOLOGY ORDERABLES [facility] documented in this encounter Visit Diagnoses Not on filedocumented in this encounter Care Teams Naval [employer] Coxswain Relationship Specialty Start Date End Date Kristopher Mcneill MD [address],[facility] [address] [place] [phone] PCP - General 09/28/12 05/24/19 documented as of this encounter
--- OUTSIDE RECORDS SUMMARY | 2024-03-05 15:39 | XMS_ITS | Encounter Summary ---
Author Organization [facility] Address [address] [place] [address] Care Team Providers Care Telegraph Installer Name Role Phone Kristopher Mcneill MD Primary Care Provider [phone] Encounter Details Date Type Department Care Team (Latest Contact Info) Description 05/11/2017 11:13 EST - 05/11/2017 23:59 [facility] Hospital Encounter [address] [address] Unknown, Provider, Discharge Disposition: Home or Self Care Social History Tobacco Use Types Packs/Day Years Used Date Smoking Tobacco: Never Assessed Sex and Gender Information Value Date Recorded Sex Assigned at Not on file Gender Identity Not on file Sexual Orientation Not on file documented as of this encounter Discharge Disposition Disposition Code Departure Means Destination Home or Self Custodial documented in this encounter Plan of Treatment Not on file documented as of this encounter Visit Diagnoses Not on filedocumented in this encounter Care Teams Telegraph Installer Relationship Specialty Start Date End Date Kristopher Mcneill MD [facility] JOVANNY SCHMIDT,[facility] [address] [place] [phone] PCP - General 09/28/12 05/24/19 documented as of this encounter
--- OUTSIDE RECORDS SUMMARY | 2024-03-05 15:39 | XMS_ITS | Encounter Summary ---
Author Organization [facility] Address [address] [place] [address] Care Team Providers Care Tubular Stock Glass Bulb Machine Former Name Role Phone Kristopher Mcneill MD Primary Care Provider [phone] Encounter Details Date Type Department Care Team (Latest Contact Info) Description 09/30/2014 13:58 EDT - 09/30/2014 23:59 EDT Hospital Encounter [address] [address] Unknown, Provider, Discharge Disposition: Home or Self Care Social History Tobacco Use Types Packs/Day Years Used Date Smoking Tobacco: Never Assessed Sex and Gender Information Value Date Recorded Sex Assigned at Not on file Gender Identity Not on file Sexual Orientation Not on file documented as of this encounter Discharge Disposition Disposition Code Departure Means Destination Home or Self Skilled Nursing documented in this encounter Plan of Treatment Not on file documented as of this encounter Visit Diagnoses Not on filedocumented in this encounter Care Teams Tubular Stock Glass Bulb Machine Former Relationship Specialty Start Date End Date Kristopher Mcneill MD [address] [place] [address],[facility] [address] [place] [phone] PCP - General 09/28/12 05/24/19 documented as of this encounter
--- OUTSIDE RECORDS SUMMARY | 2024-03-05 15:39 | XMS_ITS | Encounter Summary ---
Author Organization [facility] Address [address] [place] [address] Care Team Providers Care Asbestos Siding Mechanic Name Role Phone Kristopher Mcneill MD Primary Care Provider [phone] Encounter Details Date Type Department Care Team (Latest Contact Info) Description 04/16/2016 8:54 EDT - 04/16/2016 23:59 EDT Hospital Encounter [facility] [address] [place] [address] Unknown, Provider, Discharge Disposition: Home or Self Care Social History Tobacco Use Types Packs/Day Years Used Date Smoking Tobacco: Never Assessed Sex and Gender Information Value Date Recorded Sex Assigned at Not on file Gender Identity Not on file Sexual Orientation Not on file documented as of this encounter Discharge Disposition Disposition Code Departure Means Destination Home or Self Retirement documented in this encounter Plan of Treatment Not on file documented as of this encounter Visit Diagnoses Not on filedocumented in this encounter Care Teams Asbestos Siding Mechanic Relationship Specialty Start Date End Date Kristopher Mcneill MD [facility] JOVANNY SCHMIDT,[facility] [address] [place] [phone] PCP - General 09/28/12 05/24/19 documented as of this encounter
--- OUTSIDE RECORDS SUMMARY | 2024-03-05 15:39 | XMS_ITS | Encounter Summary ---
Author Organization [facility] Address [address] [place] [address] Care Team Providers Care Operations Research Scientist Name Role Phone Kristopher Mcneill MD Primary Care Provider [phone] Encounter Details Date Type Department Care Team (Late st Contact Info) Description 04/07/2017 Historical Results Only [facility] [place] Radiology Results [address] [place] [address] Lisa Gipson, GUERLINE [address] [place] [address] [place] [address] Social History Tobacco Use Types Packs/Day Years Used Date Smoking Tobacco: Never Assessed Sex and Gender Information Value Date Recorded Sex Assigned at Not on file Gender Identity Not on file Sexual Orientation Not on file documented as of this encounter Plan of Treatment Not on file documented as of this encounter Procedures Procedure Name Priority Date/Time Associated Diagnosis Comments XR LUMBAR SPINE COMPLETE WITH FLEX/EXT AND OBLIQUES MIN 6 VIEWS 04/07/2017 17:14 EDT documented in this encounter Results * XR LUMBAR SPINE COMPLETE WITH FLEX/EXT AND OBLIQUES MIN 6 VIEWS (04/07/2017 17:14 EDT) Anatomical Region Laterality Modality Other 04/07/2017 17:1 4 EDT Narrative 04/07/2017 17:17 EDT ? EXAM: RADIOLOGY/LUMBAR SPINE WITH FLEX/EX EX. D/ (1313) ? CLINICAL INFORMATION: ? M54.17 LUMBAR BACK PAIN WITH RADICULOPATHY AFFECTING RIGHT LOWER ? EXTREMITY ? INDICATION: M54.17 LUMBAR BACK PAIN WITH RADICULOPATHY AFFECTING ? RIGHT LOWER, EXTREMITY. ? COMPARISON: None. ? TECHNIQUE: AP, lateral neutral and lateral flexion and extension ? views were obtained. ? FINDINGS: Degenerative disc disease and facet arthritis is present ? throughout the lumbar spine. There is a grade 2 anterolisthesis of L5 ? which does not change with either flexion or extension. No fracture ? is seen. Bone density is normal. There is a minimal scoliosis of the ? lumbar spine, apex to the left. There are mild degenerative arthritic ? changes within the sacroiliac joints. ? IMPRESSION: ? 1. Degenerative spondylosis of the lower thoracic and lumbar spine. ? 2. Grade 2 anterolisthesis of L5 which does not change with either ? flexion or extension. ? REPORT SIGNED IN OTHER VENDOR SYSTEM 04/07/2017 ?Reported By: Chang Martinez MD ? CC: ? Transcribed Date/Time: 04/07/2017 (1717) ? Paster Supervisor: ? Printed Date/Time: 12/14/2018 (1137) ? PAGE 1 ? Signed Report ? Procedure Note Chang Martinez MD - 05/04/2019 EXAM: RADIOLOGY/LUMBAR SPINE WITH FLEX/EX EX. D/ (1313) CLINICAL INFORMATION: M54.17 LUMBAR BACK PAIN WITH RADICULOPATHY AFFECTING RIGHT LOWER EXTREMITY INDICATION: M54.17 LUMBAR BACK PAIN WITH RADICULOPATHY AFFECTING RIGHT LOWER, EXTREMITY. COMPARISON: None. TECHNIQUE: AP, lateral neutral and lateral flexion and extension views were obtained. FINDINGS: Degenerative disc disease and facet arthritis is present throughout the lumbar spine. There is a grade 2 anterolisthesis ofL5 which does not change with either flexion or extension. No fracture is seen. Bone density is normal. There is a minimal scoliosis ofthe lumbar spine, apex to the left. There are mild degenerativearthritic changes within the sacroiliac joints. IMPRESSION: 1. Degenerative spondylosis of the lower thoracic and lumbar spine. 2. Grade 2 anterolisthesis of L5 which does not change with either flexion or extension. REPORT SIGNED IN OTHER VENDOR SYSTEM 04/07/2017 Reported By: Chang Martinez MD CC: Transcribed Date/Time: 04/07/2017 (1717) Paster Supervisor: Printed Date/Time: 12/14/2018 (1138) PAGE 1 Signed Report Lisa Gipson [facility] DI[facility]NOSTIC IMAGI NG ORDERABLES documented in this encounter Visit Diagnoses Not on filedocumented in this encounter Care Teams Operations Research Scientist Relationship Specialty Start Date End Date Kristopher Mcneill MD [address],[facility] [address] [place] [id number] PCP - General 09/28/12 05/24/19 documented as of this encounter
--- OUTSIDE RECORDS SUMMARY | 2024-03-05 15:39 | XMS_ITS | Encounter Summary ---
Author Organization [facility] Address [address] [place] [address] Care Team Providers Care Agency Appointments Supervisor Name Role Phone Kristopher Mcneill MD Primary Care Provider [phone] Encounter Details Date Type Department Care Team ([facility] st Contact Info) Description 2015 Historical Results Only [facility] [place] [facility] [place] [address] [place], [place] [id number] Kathy Alcala PA [address] [place] [address] Social History Tobacco Use Types Packs/Day Years [...] LEG LENGTH EVALUATION (PRE AND POST OP) 2015 13:06 EDT documented in this encounter Results * XR LEG LENGTH EVALUATION (PRE AND POST OP) (2015 13:06 EDT) Anatomical Region Laterality Modality Lower Extremities Other 2015 13:0 6 EDT Narrative 2015 13:11 EDT ? EXAM: RADIOLOGY/LEG ALIGNMENT SERIES ?EX. D/ (1101) ? CLINICAL INFORMATION: ? POST OP TKR ? INDICATION: POST OP TKR. ? COMPARISON: Leg alignment series 11/06/2015. ? TECHNIQUE: AP view of both lower extremities and lateral view of the ? right lower extremity was obtained. ? FINDINGS: There is a noncemented right 3 compartment knee ? arthroplasty. Components are well seated. The knee alignment is ? neutral to minimally varus. 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 ? IMPRESSION: Status post right total knee arthroplasty without ? postoperative complication. ? REPORT SIGNED IN OTHER VENDOR SYSTEM 2015 ?Reported By: Chang Martinez MD ? CC: ? Transcribed Date/Time: 2015 (1311) ? Cable Dispatcher: ? Printed Date/Time: 12/09/2018 (2224) ? PAGE 1 ? Signed Report ? Procedure Note Chang Martinez MD - 05/04/2019 EXAM: RADIOLOGY/LEG ALIGNMENT SERIES EX. D/ (1101) CLINICAL INFORMATION: POST OP TKR INDICATION: POST OP TKR. COMPARISON: Leg alignment series 11/06/2015. TECHNIQUE: AP view of both lower extremities and lateral view ofthe right lower extremity was obtained. FINDINGS: There is a noncemented right 3 compartment knee arthroplasty. Components are well seated. The knee alignment is neutral to minimally varus. Osteoarthritis of the left tibiofemoral joint is unchanged. IMPRESSION: Status post right total knee arthroplasty without postoperative complication. REPORT SIGNED IN OTHER VENDOR SYSTEM 2015 Reported By: Chang Martinez MD CC: Transcribed Date/Time: 2015 (3701) Cable Dispatcher: Printed Date/Time: 12/09/2018 (6758) PAGE 1 Signed Report Kathy MANRIQUEZ IMG DIAGNOSTIC I MAGING ORDERABLES documented in this encounter Visit Diagnoses Not on filedocumented in this encounter Care Teams Agency Appointments Supervisor Relationship Specialty Start Date End Date Kristopher Mcneill MD [address],[facility] [address] [place] [address] PCP - General 09/28/12 05/24/19 documented as of this encounter
[2024-03-05] MEDS: Methocarbamol 500 MG TAB 1000 MG PO (16:26)
[2024-03-05] MEDS: Acetaminophen 500 MG TAB 1000 MG PO (16:26)
[2024-03-05 16:55] LABS: Bilirubin Negative (Negative); Blood Negative (Negative); Clarity Clear (Clear); Glucose Negative (Negative); Ketones Negative (Negative); Leukocyte Esterase Negative (Negative); Nitrite Negative (Negative); Urobilinogen 0.2 mg/dL (Up to 0.2); pH 5.5 (5-8)
--- NOTE | 2024-03-05 19:45 | ED.GENADUL_ITS ---
Discharge Plan Disposition Patient Disposition: Home Condition: Stable Discharge Details Clinical Impression: Low back pain Primary Care Provider: Rebecca Giles ED Provider: Medina Piper Home Meds and New Rx's Prescriptions: New methocarbamol 500 mg tablet 500 mg PO TID PRN (Reason: pain) Qty: 20 0RF lidocaine [Lidoderm] 5 % adhesive patch,medicated 1 patch topical DAILY PRN (Reason: pain) Qty: 15 0RF Rx Instructions: leave on most painful area for up to 12 hrs No Action acetaminophen [Tylenol Arthritis Pain] 650 mg tablet extended release 650 mg PO Q12H PRN Rx Instructions: uses 2-3 per week levothyroxine [Levoxyl] 175 mcg tablet 175 mcg PO DAILY Qty: 90 3RF celecoxib [Celebrex] 200 mg capsule 200 mg PO DAILY Qty: 100 3RF Rx Instructions: Arthritis pain Discharge Instructions Instructions: Low Back Pain ED Additional Instructions: * PLEASE TAKE TYLENOL EVERY 4 HOURS NEEDED FOR PAIN * ADDITIONAL PRESCRIPTIONS SENT TO PHARMACY TO HELP WITH ACUTE PAIN * URINE DOESN'T SHOW SIGNS OF INFECTION OF BLOOD (UNLIKELY TO BE A KIDNEY STONE CAUSING PAIN) * PLEASE FOLLOW UP WITH YOUR PCP FOR ONGOING PAIN Discharge Data Discharge Date/Time-TO BE ENTERED AT DEPARTURE: 03/05/24 17:22 HPI General Date/Time Provider Initiated Documentation: 03/05/24 15:42 . Limitations to Documentation: no limitations . Information obtained by: patient . HPI Narrative: 63-year-old female with chronic back pain presents for evaluation of right-sided pain. She reports that when she arrived at work today, she started having right-sided back pain she had not done any working or any activities. She denies any trauma or falls or heavy lifting. She reports similar pain on the other side of her back that she had had previously secondary to work, but that today this pain was on the right side. Denies any numbness weakness or difficulty, change in bowel or bladder. Applied a [id number] pain medication patch to the area of pain with some relief. She denies that there is any burning with urination, urinary urgency or frequency. Denies any hematuria. She reports she had the acute onset of pain and that it has been constant, but improving Related Data Home Medications ?Medication ?Instructions ?Recorded ?Confirmed levothyroxine 175 mcg tablet 175 mcg PO DAILY thyroid #90 tabs 03/04/23 03/05/24 (Levoxyl) acetaminophen 650 mg 650 mg PO Q12H PRN 05/28/23 03/05/24 tablet,extended release (Tylenol Arthritis Pain) celecoxib 200 mg capsule (Celebrex) 200 mg PO DAILY #100 caps 01/20/24 03/05/24 lidocaine 5 % topical patch 1 patch topical DAILY PRN pain #15 03/05/24 (Lidoderm) ea methocarbamol 500 mg tablet 500 mg PO TID PRN pain #20 tabs 03/05/24 Previous Rx's ?Medication ?Instructions ?Recorded levothyroxine 175 mcg tablet 175 mcg PO DAILY thyroid #90 tabs 03/04/23 (Levoxyl) celecoxib 200 mg capsule (Celebrex) 200 mg PO DAILY #100 caps 01/20/24 lidocaine 5 % topical patch 1 patch topical DAILY PRN pain #15 03/05/24 (Lidoderm) ea methocarbamol 500 mg tablet 500 mg PO TID PRN pain #20 tabs 03/05/24 Allergies Allergy/AdvReac Type Severity Reaction Status Date / Time meloxicam AdvReac Intermediate bloody Verified 03/05/24 15:35 stools benzonatate AdvReac Increased Unverified 03/05/24 15:35 Cough gabapentin AdvReac Headaches Unverified 03/05/24 15:35 General Stated Complaint: Nk/Back Pain REBECA: 4 Exam Narrative Exam Narrative: Review of Systems: All systems reviewed & are unremarkable except as noted in HPI and below Well-developed, no acute distress NCAT RRR Unlabored respiratory effort Nondistended abdomen , no CVA tenderness No midline back tenderness step-off or deformity Bilateral lower extremities have equal strength bilaterally Course Vital Signs Vital signs: Vital Signs Temperature 36.4 C L 03/05/24 15:30 Pulse 66 03/05/24 15:30 Respiratory Rate 16 03/05/24 15:30 Blood Pressure 172/87 H 03/05/24 15:30 Pulse Oximetry 97 03/05/24 15:30 Temperature 36.4 C L 03/05/24 15:30 Pulse 66 03/05/24 15:30 Respiratory Rate 16 03/05/24 15:30 Respiratory Effort Normal 03/05/24 15:35 Blood Pressure 172/87 H 03/05/24 15:30 Pulse Oximetry 97 03/05/24 15:30 Pain Level 10 03/05/24 16:26 Lab/Test Results Lab/Test Results: Laboratory Tests Range/Units 03/05/24 16:35 Urine Color (Yellow) Yellow Urine Clarity (Clear) Clear Urine pH (5-8) 5.5 Ur Specific Peterson (1.005-1.025) 1.010 Urine Protein (Neg-Trace) mg/dL Negative Urine Ketones (Negative) mg/dL Negative Urine Blood (Negative) Negative Urine Nitrite (Negative) Negative Urine Bilirubin (Negative) Negative Urine Urobilinogen (Up to 0.2) mg/dL 0.2 Ur Leukocyte Esterase (Negative) Negative Urine Glucose (Negative) mg/dL Negative Medical Decision Making Emergent evaluation of atraumatic right-sided back pain. Initial differential includes sciatica, lumbo sacral disc disease, low suspicion for cauda equina given no neurologic findings. The onset of pain was not associated with any particular activity. At this time I do not feel that imaging is indicated given prior evaluations of her back. I recommend continued pain control. A urinalysis was obtained to evaluate for hematuria and because this is negative, I doubt that there is a kidney stone contributing to her symptoms. The patient is recommended to continue physical therapy and follow back up with her PCP for reevaluation if symptoms are ongoing. Return precautions Quality:SDOH Health Related Social Needs: No Data to Display PFSH All Active Problems Low back pain (Acute) H. 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 Pain, foot (Acute) Nail dystrophy (Acute) Diastasis recti (Acute) Internal hemorrhoids (Acute) Onychomycosis (Acute) Umbilical hernia (Chronic) Seen on CT 2015 Right inguinal hernia (Chronic) Seen on CT 2015 & 2020 Neck pain (Acute) C-spine x-ray 06/13/2020 Varicose veins of both legs with edema (Chronic) Trialed thigh-high compression stockings Referred to Vasc Surgery for options 07/11/2019 Degenerative spondylolisthesis (Chronic) Lumbar spine Radicular RLE 03/[place] [facility] [place]othyroid (Chronic) Obesity (Chronic) Chronic pain of both feet (Chronic) Diverticulosis large intestine w/o perforation or abscess w/o bleeding (Chronic) CT 2015; Colonoscopy 2017: lacy diverticulosis Medical History Family history of breast cancer in sister History of tobacco use 15 years and quit in 2015 Diverticulosis Severe--seen on imaging Postmenopausal atrophic vaginitis Start vaginal estradiol 07/14/23 Bloody stool s/p meloxicam Neuropathy Endometrial thickening on ultrasound Endometrial BX NEG 07/2020: polyps removed hysteroscopically Post-menopausal bleeding 2019: [facility] work-up benign 05/2023: Reoccurrence with hysteroscopic sampling showing endometrial polyps. Norethindrone x3mo. Category 3 mammography result with short follow-up interval suggested for probably benign finding +Fam hx in Sister as well, age 59yo. [facility] [place] reviewed & Cat 1; pt to still have 6m F/U L breast f/u 11/2020 Depression History of heavy alcohol consumption Primary osteoarthritis of right knee s/p R TKR Synovial cyst of popliteal space [Gilbert], right knee Overactive bladder Surgical History History of hysteroscopy with polypectomy Jun 2023 History of carpal tunnel release left History of right knee surgery TKR [place] [facility] [place] History of dilation and curettage Right carpal tunnel syndrome S/P R ECTR: 01/28/2022 Ligation of fallopian tube Hernia Repair, Incisional RUQ abd hernia with subsequent repair Colonoscopy - [facility] (11/10/16) Cholecystectomy Family History Sister Breast cancer post-menopausal (alive) Brother Diabetes Nephew Diabetes Mother Dementia Father Tongue cancer Social History Smoking/Tobacco Use Status: Former Tobacco Use tobacco type: cigarettes Quit Date: 06/29/05 Pack-years: 30 Tobacco: How many years used: 30 Quit status: quit date established Smoking risk assessment performed?: Yes Alcohol Intake: current Alcohol Intake frequency: a few times a week Alcohol type: wine Drug use: Never Substance use type: does not use Adopted: No Caregiver/Support person: No Foster care: No Household members: spouse Housing: house Number of Children: 0 Communication Needs: Corrective Lenses Education Level: high school Do you need help understanding health information?: Never 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, [employer] Pets and animals: Yes (2 cats) Pets and animals: cat(s) Sexually active: No Do you think of yourself as: straight/heterosexual Current gender identity: female What is your relationship status?: How often do you talk on the phone with friends or family?: twice per week How often do you get together with friends or relatives?: once per week How often do you attend hoahaoism or rastafari services?: 1-3 times per year Do you belong to any clubs or organized social groups?: no Panel score (0-1 are the most socially isolated patients): 2 NHANES result reviewed/action taken: No What type of physical activity do you participate in: walking Duration: > 90 minutes/day Frequency: 5-6 times per week Kylie/Tenriism: Holiness Special kylie needs: Yes Seatbelt use: always Helmet use: Yes Drive intox or ride w/intox driver utility worker: No Working smoke detector in home: Yes Fire extinguisher in home: Yes Carbon monox detector in home: Yes Do you feel safe at home: Yes Do you feel safe in your relationship?: Yes Female Reproductive History Menstrual Age of Menarche: 14 control method: none History History 1 Para 0 Hx # Term Pregnancies Multiple births Hx # Pregnancies Ectopic pregnancies AB induced 1 Hx Number of Living Children AB spontaneous
== END 2024-03-05 17:22 | disposition home or self-care (01) ==
PROVIDERS: Emergency Provider Emergency Medicine; PCP Nurse Practitioner Adult Health
DX: M54.50 Low back pain, unspecified (principal)
CPT/HCPCS: 99283; 81003

== ENCOUNTER 2024-06-01 10:26 | Outpatient (CLI) | payer OTHER, SELFPAY ==
[2024-06-01 10:30] LABS: Anion Gap 8.5 mmol/L (3-11); BUN 13 mg/dL (7-18); CO2 27.5 mmol/L (21.0-32.0); CREATININE 0.8 mg/dL (0.55-1.02); Calcium 9.3 mg/dL (8.5-10.1); Calculated LDL 105 mg/dL (<100); Chloride 104 mmol/L (98-107); Cholesterol 187 mg/dL (<200); Estimated GFR 83.26 (mL/min/1.73m2); Glucose 98 mg/dL (74-106); HDL Cholesterol 55 mg/dL (40-60); Potassium 4.2 mmol/L (3.5-5.1); Sodium 140 mmol/L (136-145); TSH (W/Ref FT4) 3.54 uIU/mL (0.36-3.74); Triglyceride 139 mg/dL (<150)
== END 2024-06-01 10:27 | disposition home or self-care (01) ==
LOC: LBO 10:27
PROVIDERS: PCP Nurse Practitioner Adult Health; Visit Provider Nurse Practitioner Adult Health
DX: E03.9 Hypothyroidism, unspecified (principal); Z13.220 Encounter for screening for lipoid disorders
CPT/HCPCS: 36415; 80048; 80061; 84443

== ENCOUNTER 2024-12-23 09:56 | Outpatient (CLI) | payer OTHER, SELFPAY ==
--- NOTE | 2024-12-23 09:15 | DI.RAD_ITS ---
Exam(s) XR KNEE RT 3V AP,LAT,MALIK EXAM: XR KNEE RT 3V AP,LAT,MALIK CLINICAL HISTORY: RIGHT KNEE PAIN. TECHNIQUE: 2D digital imaging was performed. Three images were obtained. Merchant's, AP and lateral views were obtained. COMPARISON: CR XR KNEE RT 3V AP,LAT,MALIK from 01/19/2023 FINDINGS: BONES: There are stable post operative changes of a right total knee arthroplasty present. No fracture or dislocation. JOINTS: The orthopedic hardware is in good position. No evidence of hardware loosening. SOFT TISSUE: Normal. IMPRESSION: Stable right total knee arthroplasty. DATA REPOSITORY: RADIATION DOSE DELIVERED:
== END 2024-12-23 09:57 | disposition home or self-care (01) ==
LOC: DIORS 09:57
PROVIDERS: PCP Nurse Practitioner Adult Health; Visit Provider Physician Assistant
DX: Z98.890 Other specified postprocedural states (principal); Z96.651 Presence of right artificial knee joint
CPT/HCPCS: 73562

== ENCOUNTER 2025-02-08 01:38 | Outpatient (CLI) | payer OTHER, SELFPAY ==
--- NOTE | 2025-02-08 07:45 | DI.MAMMO_ITS ---
Exam(s) MAMMO SCREENING EXAM: MAMMO SCREENING CLINICAL HISTORY: screening,z12.39,family h/o z80.3 TECHNIQUE: Bilateral full field digital CC and MLO mammographic images were obtained with 3D tomosynthesis and utilizing computer aided detection (CAD). COMPARISON: Comparison is made with prior examinations. FINDINGS: Masses/Architectural Distortion: There is a new 4 mm nodule in the medial posterior left breast on the MLO and CC view. Microcalcifications: No suspicious pleomorphic-type are seen. Skin Thickening/Nipple Retraction: None. IMPRESSION: 1. New 4 mm nodule in the left breast. 2. This area should be further evaluated with a spot compression view. Ultrasound may be indicated at that time. BI-RADS Category 0 - Incomplete: Need additional imaging evaluation Breast Density - Category B - There are scattered areas of fibroglandular density. Breast density Category C or D implies that the patient has dense breast tissue. Dense breast tissue can make it harder to find cancer on a mammogram. Dense breast tissue is also associated with an increased risk of breast cancer. This information about the result of the mammogram report was provided to the patient to raise their awareness. Use this report when you speak with the patient about their risks for breast cancer, which includes their family history. At that time, you may recommend additional screening tests (Ultrasound or MRI) as these tests may add significant information. A negative radiographic report should not delay biopsy if a dominant or clinically suspicious mass is present. Up to ten percent of cancers are not identified on mammography. A negative report may reinforce clinical impression. Adenosis and dense breasts may obscure an underlying neoplasm. False positive reports average 6 to 10%. Patient will receive a letter notifying them of these results.
== END 2025-02-08 01:58 ==
LOC: DI 01:39
PROVIDERS: PCP Nurse Practitioner Adult Health; Visit Provider Nurse Practitioner Adult Health
DX: Z12.31 Encounter for screening mammogram for malignant neoplasm of breast (principal); Z80.3 Family history of malignant neoplasm of breast; R92.323 Mammographic fibroglandular density, bilateral breasts
CPT/HCPCS: 77063; 77067

== ENCOUNTER 2025-02-13 02:33 | Outpatient (CLI) | payer OTHER, SELFPAY ==
--- NOTE | 2025-02-13 | DI.MAMMO_ITS ---
Exam(s) MG MAMMO SCREEN CALL BACK UNI US BREAST LT COMPLETE EXAM: MG MAMMO SCREEN CALL BACK UNI LEFT AND COMPLETE LEFT BREAST ULTRASOUND CLINICAL HISTORY: R92.8 ABN mammo,New 4mm nodule in medial posterior LT breast on MLO CC. TECHNIQUE: Unilateral left breast spot mammographic images obtained with 3D tomosynthesisand utilizing computer aided detection (CAD). . Complete left breast Ultrasound was also performed, including all 4 quadrants, the retroareolar region, and the ipsilateral axilla. COMPARISON: Prior mammograms were reviewed. This additional imaging was performed due to findings described on the recent screening mammogram of 02/08/2025. FINDINGS: DIAGNOSTIC MAMMOGRAM: Additional mammographic views performed todaydo not dissipate this tiny nodule. We proceeded with ultrasound COMPLETE LEFT BREAST ULTRASOUND: Ultrasound performed today reveals no evidence of solid or significant cystic lesions in all 4 quadrants.. Scanning of the ipsilateral axilla reveals no significant adenopathy. IMPRESSION: 1. There is no focal finding on ultrasound to correspond to the finding on the mammogram described on the recent mammogram of 02/08/2025. Appropriate follow-up as discussed by myself with the patient today is repeat left breast mammogram in 3 months.. The patient informs me that she has a sister with breast cancer The patient was informed of these findings and recommendations by myself prior to leaving the department today. BI-RADS Category 3 - 3 month - Probably Benign Finding: Recommend follow-up mammography and ultrasound in 3 months Breast Density - Category B - There are scattered areas of fibroglandular density. Breast density Category C or D implies that the patient has dense breast tissue. Dense breast tissue can make it harder to find cancer on a mammogram. Dense breast tissue is also associated with an increased risk of breast cancer. This information about the result of the mammogram report was provided to the patient to raise their awareness. Use this report when you speak with the patient about their risks for breast cancer, which includes their family history. At that time, you may recommend additional screening tests (Ultrasound or MRI) as these tests may add significant information. A negative radiographic report should not delay biopsy if a dominant or clinically suspicious mass is present. Up to ten percent of cancers are not identified on mammography. A negative report may reinforce clinical impression. Adenosis and dense breasts may obscure an underlying neoplasm. False positive reports average 6 to 10%. Patient will receive a letter notifying them of these results.
== END 2025-02-13 02:53 ==
LOC: DI 02:33
PROVIDERS: PCP Nurse Practitioner Adult Health; Visit Provider Nurse Practitioner Adult Health
DX: Z12.31 Encounter for screening mammogram for malignant neoplasm of breast (principal); R92.8 Other abnormal and inconclusive findings on diagnostic imaging of breast; R92.323 Mammographic fibroglandular density, bilateral breasts
CPT/HCPCS: 76642; 77063; 77067

== ENCOUNTER → 2025-05-24 00:31 | Outpatient (CLI) | payer OTHER, SELFPAY ==
--- NOTE | 2025-05-24 09:59 | DI.US_ITS ---
Exam(s) MAMMO DIAGNOSTIC UNI US BREAST LT LIMITED EXAM: MAMMO DIAGNOSTIC UNI and U/S breast LT limited CLINICAL HISTORY: 3 MO F/U LT,R92.8. TECHNIQUE: Craniocaudal and mediolateral oblique Full Field Digital Mammography views of the left breast with Computer Aided Diagnosis followed by Tomosynthesis and limited left breast ultrasound. COMPARISON: Comparison is made with prior examinations. FINDINGS: Mammography/Tomosynthesis: Masses/Architectural Distortion: The nodule in the lower inner quadrant of the left breast persists and is unchanged. There are no new pulmonary nodules. There are no areas of architectural distortion present. Microcalcifictions: No suspicious pleomorphic-type are seen. Skin Thickening/Nipple Retraction: None. Limited left breast US: Echotexture: Normal appearance of the glandular tissue. Shadowing: No suspicious foci. Cyst: None. Solid lesions: None seen. Ductal dilation: None. IMPRESSION: 1. No evidence of malignancy is noted. 2. A six-month follow-up left mammogram is requested for re-evaluation. 3. The findings were discussed with the patient on the date of the examination. BI-RADS Category 3 - 6 month - Probably Benign Finding: Recommend follow-up imaging in 6 months Breast Density - Category B - There are scattered areas of fibroglandular density. Breast density Category C or D implies that the patient has dense breast tissue. Dense breast tissue can make it harder to find cancer on a mammogram. Dense breast tissue is also associated with an increased risk of breast cancer. This information about the result of the mammogram report was provided to the patient to raise their awareness. Use this report when you speak with the patient about their risks for breast cancer, which includes their family history. At that time, you may recommend additional screening tests (Ultrasound or MRI) as these tests may add significant information. A negative radiographic report should not delay biopsy if a dominant or clinically suspicious mass is present. Up to ten percent of cancers are not identified on mammography. A negative report may reinforce clinical impression. Adenosis and dense breasts may obscure an underlying neoplasm. False positive reports average 6 to 10%. Patient will receive a letter notifying them of these results.
== END ==
LOC: DI 00:33
PROVIDERS: PCP Nurse Practitioner Adult Health; Visit Provider Nurse Practitioner Adult Health
DX: N63.24 Unspecified lump in the left breast, lower inner quadrant (principal)
CPT/HCPCS: 76642; 77061; 77065; G0279

== ENCOUNTER 2025-06-06 10:38 | Outpatient (CLI) | payer OTHER, SELFPAY ==
[2025-06-06 14:54] LABS: ALT 23 U/L (10-49); AST 24 U/L (<34); Albumin 4.4 g/dL (3.2-5.0); Alkaline Phosphatase 78 U/L (46-116); Anion Gap 7.7 mmol/L (3-11); BUN 12 mg/dL (9-23); Bilirubin, Total 0.7 mg/dL (0.2-1.2); CO2 28.3 mmol/L (20.0-31.0); Calcium 9.5 mg/dL (8.3-10.6); Chloride 106 mmol/L (98-107); Cholesterol 145 mg/dL (<200); Glucose 93 mg/dL (74-106); HDL Cholesterol 46 mg/dL (>40); Potassium 4.1 mmol/L (3.5-5.1); Sodium 142 mmol/L (136-145); Total Protein 7.3 g/dL (5.7-8.2)
[2025-06-06 14:57] LABS: TSH (W/Ref FT4) 0.11 uIU/mL (0.55-4.78)
== END 2025-06-06 10:39 | disposition home or self-care (01) ==
LOC: LBO 10:39
PROVIDERS: PCP Nurse Practitioner Adult Health; Visit Provider Nurse Practitioner Adult Health
DX: E03.9 Hypothyroidism, unspecified (principal); E66.813 Obesity, class 3; Z51.81 Encounter for therapeutic drug level monitoring
CPT/HCPCS: 36415; 80053; 80061; 84439; 84443